=== PATIENT | female | born 1975 | race Caucasian/White ===

== ENCOUNTER → 2018-09-03 20:53 | Outpatient (CLI) | payer OTHER, MEDICAID, SELFPAY | PROVIDERS: Visit Provider Physician Assistant | DX: R39.9 Unspecified symptoms and signs involving the genitourinary system (principal) | CPT/HCPCS: 87077; 87086; 87147; 87186 ==

== ENCOUNTER → 2023-07-13 09:03 | Outpatient (CLI) | payer OTHER, MEDICAID, SELFPAY ==
[2023-07-14 12:09] LABS: Fecal Immunochemical Test Negative (Negative)
== END ==
PROVIDERS: PCP Student in an Organized Health Care Education/Training Program; Referring Provider Student in an Organized Health Care Education/Training Program; Visit Provider Student in an Organized Health Care Education/Training Program
DX: Z12.11 Encounter for screening for malignant neoplasm of colon (principal)
CPT/HCPCS: 82274

== ENCOUNTER → 2023-08-19 08:06 | Outpatient (CLI) | payer OTHER, MEDICAID, SELFPAY ==
[2023-08-19 09:03] LABS: Add Manual Diff / Slide Review NO; Basophils Absolute Auto 100 /uL (0-100); Basophils Percent Auto 0.7 % (0-2); Eosinophils Absolute Auto 200 /uL (0-450); Eosinophils Percent Auto 2.5 % (2-4); Hematocrit 43.4 % (36-46); Lymphocytes Absolute Auto 1600 /uL (1100-4500); Lymphocytes Percent Auto 20.2 % (25-40); Mean Corpuscular HGB Conc 34.6 % (30-36); Mean Corpuscular Hemoglobin 31.3 PG (26-34); Mean Corpuscular Volume 90.6 fL (80-100); Monocytes Absolute Auto 700 /uL (0-900); Monocytes Percent Auto 8.5 % (3-14); Neutrophils Absolute Auto 5400 /uL (1500-7000); Neutrophils Percent Auto 68.1 % (50-75); Platelet Count 215 X10^3/uL (150-400); Red Blood Cell Count 4.79 X10^6/uL (4.0-5.2); Red Cell Distribution Width 14.2 % (11.6-14.8)
[2023-08-19 09:11] LABS: Hemoglobin A1C% w Est Avg Glu 4.9 % (4.0-6.0)
[2023-08-19 09:24] LABS: Alanine Aminotransferase 209 IU/L (<35); Albumin 4.2 g/dL (3.5-5.0); Albumin Globulin Ratio 1.2 (1.0-2.8); Alkaline Phosphatase 88 U/L (38-126); Aspartate Aminotransferase 205 IU/L (14-36); Bilirubin Total 1.1 mg/dL (0.2-1.3); Blood Urea Nitrogen 9 mg/dL (7-17); Calcium 9.7 mg/dL (8.4-10.2); Carbon Dioxide 22 mmol/L (22-32); Chloride 103 mmol/L (98-107); Cholesterol 274 mg/dL (140-199); Estimated Glomerular Filt Rate > 60 mL/min (>60); Globulin 3.5 g/dL (1.7-4.1); Glucose 108 mg/dL (70-100); HDL Cholesterol 47 mg/dL (40-60); HEMOLYSIS 19 (0-50); LDL Cholesterol Calculated 190 mg/dL (<100); Potassium 4.5 mmol/L (3.4-5.1); Sodium 136 mmol/L (137-145); Total Protein 7.7 g/dL (6.3-8.2); Triglycerides 186 mg/dL (35-150)
[2023-08-19 09:53] LABS: TSH w/ Reflex to FT4 2.01 uIU/mL (0.47-4.68)
== END ==
PROVIDERS: PCP Student in an Organized Health Care Education/Training Program; Referring Provider Student in an Organized Health Care Education/Training Program; Visit Provider Student in an Organized Health Care Education/Training Program
DX: R63.5 Abnormal weight gain (principal)
CPT/HCPCS: 36415; 80053; 80061; 83036; 84443; 85025

== ENCOUNTER → 2023-10-19 06:36 | Outpatient (CLI) | payer OTHER, MEDICAID, SELFPAY ==
--- NOTE | 2023-10-19 06:37 | DI.US.S_ITS ---
PROCEDURE: US ABDOMEN LIMITED INDICATIONS: elevated LFT/Transaminitis TECHNIQUE: Real-time scanning was performed of the abdominal and retroperitoneal organs, with image documentation. COMPARISON: None. FINDINGS: Liver: The liver measures 17.6 cm in length and demonstrates increased echogenicity throughout. Gallbladder: No gallstones. No wall thickening. No pericholecystic edema. Negative sonographic Coombs's sign. Biliary ducts: Intrahepatic bile ducts are non-dilated. Extrahepatic bile duct caliber measures 4.2 mm. Normal is 6-7 mm or less in diameter, or 10 mm or less post-cholecystectomy. Pancreas: Visualized portions of the pancreas are sonographically normal. The tail of the pancreas is not well visualized due to bowel gas. IMPRESSION: Increased hepatic echogenicity noted likely related to fatty infiltration of the liver but other sources of hepatocellular disease cannot be excluded. Dictated by: Margoth Zavala M.D. on 10/19/2023 at 9:38 Approved by: Margoth Zavala M.D. on 10/19/2023 at 9:39
== END ==
LOC: US 06:36
PROVIDERS: PCP Student in an Organized Health Care Education/Training Program; Referring Provider Student in an Organized Health Care Education/Training Program; Visit Provider Student in an Organized Health Care Education/Training Program
DX: R74.01 Elevation of levels of liver transaminase levels (principal); R79.89 Other specified abnormal findings of blood chemistry
CPT/HCPCS: 76705

== ENCOUNTER → 2023-11-27 06:57 | Outpatient (CLI) | payer OTHER, MEDICAID, SELFPAY ==
[2023-11-27 07:45] LABS: HEMOLYSIS < 15 (0-50); Iron 73 ug/dL (37-170)
[2023-11-27 07:51] LABS: Alanine Aminotransferase 162 IU/L (<35); Albumin 4.2 g/dL (3.5-5.0); Albumin Globulin Ratio 1.1 (1.0-2.8); Alkaline Phosphatase 96 U/L (38-126); Aspartate Aminotransferase 194 IU/L (14-36); BUN Creatinine Ratio 11.9 (6-22); Bilirubin Total 1.1 mg/dL (0.2-1.3); Blood Urea Nitrogen 8 mg/dL (7-17); Calcium 9.4 mg/dL (8.4-10.2); Carbon Dioxide 25 mmol/L (22-32); Chloride 103 mmol/L (98-107); Estimated Glomerular Filt Rate > 60 mL/min (>60); Globulin 3.7 g/dL (1.7-4.1); Glucose 112 mg/dL (70-100); HEMOLYSIS < 15 (0-50); Potassium 4.2 mmol/L (3.4-5.1); Sodium 139 mmol/L (137-145); Total Protein 7.9 g/dL (6.3-8.2)
[2023-11-27 07:56] LABS: Percent Iron Saturation 17 % (15-50); Total Iron Binding Capacity 422 ug/dL (265-497); Transferrin 330 mg/dL (206-381)
[2023-11-27 08:22] LABS: Ferritin 64 ng/mL (6-137)
[2023-11-27 15:41] LABS: Hep C Virus Ab w/Reflex Quant NEGATIVE s/c (NEGATIVE)
[2023-11-28 00:45] LABS: HBsAg Screen Negative (Negative); Hepatitis A Antibody IgM Negative (Negative); Hepatitis B Core Antibody IgM Negative (Negative); Hepatitis C Antibody Non Reactive (Non Reactive)
[2023-11-28 06:20] LABS: Ceruloplasmin 28.9 mg/dL (19.0-39.0)
[2023-11-28 20:37] LABS: Deamidated Gliadin Ab IgA 9 units (0-19); Deamidated Gliadin Ab IgG 2 units (0-19); Immunoglobulin A,Qn 561 mg/dL (87-352); t-Transglutaminase IgA <2 U/mL (0-3)
[2023-11-29 15:50] LABS: Smooth Muscle Antibody 8 Units (0-19)
[2023-11-30 16:39] LABS: ANA Screen, IFA Negative (.)
[2023-12-08 15:12] LABS: Alpha 1 Antitrypsin 182 mg/dL (101-187); Alpha 1 antitrypsin pheno Rflx Not Indicated (.)
== END ==
PROVIDERS: PCP Student in an Organized Health Care Education/Training Program; Referring Provider Student in an Organized Health Care Education/Training Program; Visit Provider Student in an Organized Health Care Education/Training Program
DX: R79.89 Other specified abnormal findings of blood chemistry (principal)
CPT/HCPCS: 36415; 80053; 80074; 81332; 82103; 82390; 82728; 82784; 83516; 83540; 83550; 86038; 86803

== ENCOUNTER → 2024-06-20 10:52 | Outpatient (CLI) | payer OTHER, MEDICAID, SELFPAY ==
[2024-06-20 12:13] LABS: Add Manual Diff / Slide Review NO; Basophils Absolute Auto 0 /uL (0-100); Basophils Percent Auto 0.6 % (0-2); Eosinophils Absolute Auto 200 /uL (0-450); Eosinophils Percent Auto 1.8 % (2-4); Hematocrit 41.5 % (36-46); Lymphocytes Absolute Auto 1200 /uL (1100-4500); Mean Corpuscular HGB Conc 33.8 % (30-36); Mean Corpuscular Hemoglobin 30.3 PG (26-34); Mean Corpuscular Volume 89.8 fL (80-100); Monocytes Absolute Auto 600 /uL (0-900); Monocytes Percent Auto 6.5 % (3-14); Neutrophils Absolute Auto 6700 /uL (1500-7000); Neutrophils Percent Auto 77.1 % (50-75); Platelet Count 217 X10^3/uL (150-400); Red Blood Cell Count 4.62 X10^6/uL (4.0-5.2); Red Cell Distribution Width 15.4 % (11.6-14.8); White Blood Cell Count 8.7 X10^3/uL (4.5-11.0)
[2024-06-20 12:35] LABS: Alanine Aminotransferase 58 IU/L (<35); Albumin 3.9 g/dL (3.5-5.0); Albumin Globulin Ratio 1.3 (1.0-2.8); Alkaline Phosphatase 130 U/L (38-126); Aspartate Aminotransferase 76 IU/L (14-36); Bilirubin Total 1.2 mg/dL (0.2-1.3); Blood Urea Nitrogen 6 mg/dL (7-17); Calcium 9.1 mg/dL (8.4-10.2); Carbon Dioxide 23 mmol/L (22-32); Chloride 107 mmol/L (98-107); Estimated Glomerular Filt Rate > 60 mL/min (>60); Glucose 92 mg/dL (70-100); HEMOLYSIS < 15 (0-50); Potassium 4.6 mmol/L (3.4-5.1); Sodium 139 mmol/L (137-145); Total Protein 6.9 g/dL (6.3-8.2)
[2024-06-20 13:02] LABS: TSH w/ Reflex to FT4 1.16 uIU/mL (0.47-4.68)
== END ==
PROVIDERS: PCP Student in an Organized Health Care Education/Training Program; Referring Provider Student in an Organized Health Care Education/Training Program; Visit Provider Student in an Organized Health Care Education/Training Program
DX: R00.2 Palpitations (principal)
CPT/HCPCS: 36415; 80053; 84443; 85025

== ENCOUNTER → 2024-07-01 06:59 | Outpatient (CLI) | payer OTHER, MEDICAID, SELFPAY ==
--- NOTE | 2024-07-01 07:00 | DI.US.S_ITS ---
PROCEDURE: US ABDOMEN LIMITED INDICATIONS: eval of liver, persistent elevated liver enzymes TECHNIQUE: Real-time scanning was performed of the abdominal and retroperitoneal organs, with image documentation. Thirty-six images. COMPARISON: [facility], , US ABDOMEN LIMITED, 10/19/2023, 6:57. FINDINGS: Liver: Mild hepatomegaly liver measures approximately 18.2 cm in CC dimension of the right lobe previously measured approximately 17.6 cm. Moderate diffuse increased echogenicity of the liver similar to the prior exam commonly hepatic steatosis or other intrinsic hepatic disease. Gallbladder: Gallbladder is nondistended. No gallstones, no gallbladder wall thickening, no pericholecystic fluid. Biliary ducts: Intrahepatic bile ducts are non-dilated. Extrahepatic bile duct caliber measures 5 mm within normal limits. Normal is 6-7 mm or less in diameter. Pancreas: Visualized portions of the pancreas are sonographically normal. Spleen: Spleen is normal in size and homogeneous in echotexture. Miscellaneous: No free abdominal fluid. IMPRESSION: Mild hepatomegaly slightly increased. Moderate diffuse increased echogenicity of the liver similar to the prior exam commonly hepatic steatosis or other intrinsic hepatic disease. Follow-up suggested. Dictated by: Federico Martin M.D. on 07/01/2024 at 8:31 Approved by: Federico Martin M.D. on 07/01/2024 at 8:51
== END ==
LOC: US 07:00
PROVIDERS: PCP Student in an Organized Health Care Education/Training Program; Referring Provider Student in an Organized Health Care Education/Training Program; Visit Provider Student in an Organized Health Care Education/Training Program
DX: R11.0 Nausea (principal); R79.89 Other specified abnormal findings of blood chemistry; E66.9 Obesity, unspecified; R16.0 Hepatomegaly, not elsewhere classified
CPT/HCPCS: 76705

== ENCOUNTER → 2024-08-22 11:29 | Outpatient (CLI) | payer OTHER, MEDICAID, SELFPAY ==
[2024-08-22 12:09] LABS: Add Manual Diff / Slide Review NO; Basophils Absolute Auto 100 /uL (0-100); Basophils Percent Auto 0.6 % (0-2); Eosinophils Absolute Auto 200 /uL (0-450); Hematocrit 45.8 % (36-46); Hemoglobin 15.6 g/dL (12.0-16.0); Lymphocytes Absolute Auto 1100 /uL (1100-4500); Lymphocytes Percent Auto 10.8 % (25-40); Mean Corpuscular HGB Conc 34.1 % (30-36); Monocytes Absolute Auto 700 /uL (0-900); Monocytes Percent Auto 6.7 % (3-14); Neutrophils Absolute Auto 8100 /uL (1500-7000); Neutrophils Percent Auto 79.9 % (50-75); Platelet Count 236 X10^3/uL (150-400); Red Blood Cell Count 5.03 X10^6/uL (4.0-5.2); Red Cell Distribution Width 15.1 % (11.6-14.8); White Blood Cell Count 10.1 X10^3/uL (4.5-11.0)
[2024-08-22 12:45] LABS: Alanine Aminotransferase 64 IU/L (<35); Albumin 4.3 g/dL (3.5-5.0); Albumin Globulin Ratio 1.4 (1.0-2.8); Alkaline Phosphatase 115 U/L (38-126); Aspartate Aminotransferase 64 IU/L (14-36); BUN Creatinine Ratio 7.7 (6-22); Bilirubin Total 1.6 mg/dL (0.2-1.3); Blood Urea Nitrogen 6 mg/dL (7-17); Calcium 9.8 mg/dL (8.4-10.2); Carbon Dioxide 23 mmol/L (22-32); Chloride 105 mmol/L (98-107); Estimated Glomerular Filt Rate > 60 mL/min (>60); Globulin 3.1 g/dL (1.7-4.1); Glucose 92 mg/dL (70-100); HEMOLYSIS < 15 (0-50); Potassium 4.2 mmol/L (3.4-5.1); Sodium 138 mmol/L (137-145); Total Protein 7.4 g/dL (6.3-8.2)
== END ==
PROVIDERS: PCP Student in an Organized Health Care Education/Training Program; Referring Provider Student in an Organized Health Care Education/Training Program; Visit Provider Student in an Organized Health Care Education/Training Program
DX: R63.4 Abnormal weight loss (principal)
CPT/HCPCS: 36415; 80053; 85025

== ENCOUNTER → 2025-01-27 11:09 | Outpatient (CLI) | payer OTHER, SELFPAY ==
[2025-01-27 12:21] LABS: HEMOLYSIS < 15 (0-50); Iron 96 ug/dL (37-170)
[2025-01-27 12:24] LABS: Alanine Aminotransferase 24 IU/L (<35); Albumin 4.1 g/dL (3.5-5.0); Albumin Globulin Ratio 1.5 (1.0-2.8); Alkaline Phosphatase 75 U/L (38-126); Aspartate Aminotransferase 32 IU/L (14-36); BUN Creatinine Ratio 9.7 (6-22); Bilirubin Total 1.2 mg/dL (0.2-1.3); Blood Urea Nitrogen 7 mg/dL (7-17); Calcium 9.1 mg/dL (8.4-10.2); Carbon Dioxide 25 mmol/L (22-32); Chloride 108 mmol/L (98-107); Estimated Glomerular Filt Rate > 60 mL/min (>60); Globulin 2.7 g/dL (1.7-4.1); Glucose 97 mg/dL (70-100); HEMOLYSIS < 15 (0-50); Magnesium 1.9 mg/dL (1.6-2.3); Phosphorous 2.6 mg/dL (2.5-4.5); Potassium 4.5 mmol/L (3.4-5.1); Sodium 140 mmol/L (137-145); Total Protein 6.8 g/dL (6.3-8.2)
[2025-01-27 12:34] LABS: Percent Iron Saturation 36 % (15-50); Total Iron Binding Capacity 268 ug/dL (265-497); Transferrin 209 mg/dL (206-381)
[2025-01-27 12:42] LABS: Free T3, Triiodothyronine Free 3.24 pg/mL (2.77-5.27); Free T4, Direct Thyroxine 1.13 ng/dL (0.78-2.19)
[2025-01-27 12:55] LABS: Thyroid Stimulating Hormone 1.29 uIU/mL (0.47-4.68)
== END ==
LOC: LAB 11:11
PROVIDERS: PCP Student in an Organized Health Care Education/Training Program; Referring Provider Student in an Organized Health Care Education/Training Program; Visit Provider Student in an Organized Health Care Education/Training Program
DX: R63.4 Abnormal weight loss (principal); R60.9 Edema, unspecified; K21.9 Gastro-esophageal reflux disease without esophagitis; Z79.899 Other long term (current) drug therapy
CPT/HCPCS: 36415; 80053; 83540; 83550; 83735; 84100; 84439; 84443; 84481

== ENCOUNTER 2025-01-29 19:44 | Emergency (ER) | payer OTHER, SELFPAY ==
[2025-01-29 19:47] VITALS: BP 130/76; PULSE 127; RESP 22; TEMP 37; O2SAT 100; BMI 25.7
--- NOTE | 2025-01-29 20:02 | ED.ANXIETY ---
HPI - Anxiety <Radha Gonzalez, DO - Last Filed: 02/08/25 12:11> General Chief Complaint: Anxiety Stated Complaint: anxiety issues Time Seen by Provider: 01/29/25 19:51 Source: patient Mode of arrival: Ambulatory History of Present Illness HPI narrative: Patient is a 49-year-old female history of anxiety presenting today with anxiety. Reports that her anxiety can not calm down. She lost her partner 7 months ago from pancreatic cancer. She is grieving but not talking to a therapist. Reports that she was drinking alcohol taking Xanax exercising excessively. She feels like her anxiety can not calm down. She started taking Kratom, she took 1 g last couple days 500 today. She has been micro dosing with psychedelics mushrooms he has been increasing that dose as well. Today she had alcohol and 1 mg of Xanax and still feels very anxious. She also took an Ambien today. Reports that if she goes home she will continue taking things until the anxiety stops. She has had thoughts of cutting herself but not killing herself. Overall anxiety feels out of control. She occasionally has some heart palpitations. She sees her PCP regularly about every 2-4 weeks. Saw PCP in the had some electrolytes done which look normal and her thyroid was also normal. She has been on Wellbutrin, fluoxetine, Xanax, Ambien, mirtazapine Related Data Previous Rx's Medication Instructions Recorded omeprazole 20 mg capsule,delayed 20 mg PO DAILY Barretts esophagus 07/10/23 release #90 caps famotidine 20 mg tablet 20 mg PO BID #60 tabs 12/05/24 cyclobenzaprine 5 mg tablet 5 mg PO 3XD PRN for muscle spasm 12/11/24 #90 tabs naproxen 500 mg tablet 500 mg PO BID #60 tabs 12/11/24 ondansetron 4 mg disintegrating 4 mg PO Q8H PRN for 12/11/24 tablet nausea/vomiting #30 tabs alprazolam 0.5 mg tablet (Xanax) 0.5 mg PO DAILY PRN anxiety, panic 01/02/25 #7 tabs zolpidem 5 mg tablet (Ambien) 5 mg PO BEDTIME #30 tabs 01/30/25 Allergies Allergy/AdvReac Type Severity Reaction Status Date / Time sulfamethoxazole AdvReac Intermediate Itching Verified 02/06/25 09:34 [From Bactrim] and mild rash on arms and torso trimethoprim [From Bactrim] AdvReac Intermediate Itching Verified 02/06/25 09:34 and mild rash on arms and torso Patient History <Radha Gonzalez DO - Last Filed: 02/08/25 12:11> Medical History Chondroid syringoma GERD (gastroesophageal reflux disease) Menarche (~1988) 0 PTSD (post-traumatic stress disorder) Depression Anxiety Lumbar spine pain (2010) Chronic back pain (2010) Painful menstrual periods (2014) Ovarian cyst Irregular periods/menstrual cycles (2014) Abnormal Pap smear of cervix (1999) Lee's esophagus (2009) Surgical History Anesthesia History of right knee surgery History of cone biopsy of cervix Family History Mother Diabetes mellitus [place] (myocardial infarction) Emphysema lung Hypertension History of heart disease Hyperlipidemia Father Hypertension Hyperlipidemia History of heart disease Family/Other Breast cancer Smoking Status: Never smoker Exam <Radha Gonzalez DO - Last Filed: 02/08/25 12:11> Initial Vital Signs Initial Vital Signs: Vital Signs Temperature 98.6 F 01/29/25 19:47 Pulse Rate 127 H 01/29/25 19:47 Respiratory Rate 22 01/29/25 19:47 Blood Pressure 130/76 01/29/25 19:47 Pulse Oximetry 100 01/29/25 19:47 Oxygen Delivery Method Room Air 01/29/25 19:47 GENERAL: Patient very anxious poor eye contact, settling with a zipper HEENT: Head atraumatic,EOMI, pupils reactive, face symmetric, moist mucous membranes CARDIOVASCULAR: Regular rate and rhythm without murmurs, rubs or gallops. RESPIRATORY: Breath sounds equal bilaterally, no wheezes rales or rhonchi. ABDOMEN: Soft, nontender. Normoactive bowel sounds all 4 quadrants. No guarding or rebound. EXTREMITIES: Normal range of motion, no clubbing or edema. Neurovascularly intact NEUROLOGICAL: Alert and oriented x4.Normal gait and speech. SKIN: Warm, dry, no laceration, no petechiae, no rashes or lesions. <David Rai DO - Last Filed: 01/30/25 07:42> Initial Vital Signs Initial Vital Signs: Vital Signs Temperature 98.6 F 01/29/25 19:47 Pulse Rate 127 H 01/29/25 19:47 Respiratory Rate 22 01/29/25 19:47 Blood Pressure 130/76 01/29/25 19:47 Pulse Oximetry 100 01/29/25 19:47 Oxygen Delivery Method Room Air 01/29/25 19:47 Course <Radha Gonzalez DO - Last Filed: 02/08/25 12:11> Orders Ordered: Discontinued Medications Diphenhydramine HCl (Diphenhydramine 25 Mg Tablet) 50 mg PO NOW ONE Stop: 01/29/25 23:44 Last Admin: 01/29/25 23:55 Dose: 50 mg Documented By: MR Lorazepam (Lorazepam 0.5 Mg Tablet) 2 mg PO NOW ONE Stop: 01/29/25 20:22 Last Admin: 01/29/25 20:36 Dose: 2 mg Documented By: MR Lorazepam (Lorazepam 0.5 Mg Tablet) 2 mg PO NOW ONE Stop: 01/29/25 23:44 Last Admin: 01/29/25 23:56 Dose: 2 mg Documented By: MR Olanzapine (Olanzapine Odt 10 Mg Tab) 10 mg PO NOW ONE Stop: 01/29/25 22:32 Last Admin: 01/29/25 22:38 Dose: 10 mg Documented By: HNG Vital Signs Vital signs: Vital Signs - 8 hr 01/30/25 01:53 01/30/25 07:20 Pulse Rate 78 79 Respiratory Rate 16 16 Blood Pressure 127/71 167/66 H Pulse Oximetry 100 100 Oxygen Delivery Method Room Air Room Air <David Rai DO - Last Filed: 01/30/25 07:42> Orders Ordered: Discontinued Medications Diphenhydramine HCl (Diphenhydramine 25 Mg Tablet) 50 mg PO NOW ONE Stop: 01/29/25 23:44 Last Admin: 01/29/25 23:55 Dose: 50 mg Documented By: MR Lorazepam (Lorazepam 0.5 Mg Tablet) 2 mg PO NOW ONE Stop: 01/29/25 20:22 Last Admin: 01/29/25 20:36 Dose: 2 mg Documented By: MR Lorazepam (Lorazepam 0.5 Mg Tablet) 2 mg PO NOW ONE Stop: 01/29/25 23:44 Last Admin: 01/29/25 23:56 Dose: 2 mg Documented By: Olanzapine (Olanzapine Odt 10 Mg Tab) 10 mg PO NOW ONE Stop: 01/29/25 22:32 Last Admin: 01/29/25 22:38 Dose: 10 mg Documented By: HNG Vital Signs Vital signs: Vital Signs - 8 hr 01/30/25 01:53 01/30/25 07:20 Pulse Rate 78 79 Respiratory Rate 16 16 Blood Pressure 127/71 167/66 H Pulse Oximetry 100 100 Oxygen Delivery Method Room Air Room Air MDM - Anxiety <Radha Gonzalez, DO - Last Filed: 02/08/25 12:11> Lab Data 01/29/25 22:10 01/29/25 22:10 Labs: Lab Results 01/29/25 01/29/25 01/29/25 Range/Units 21:38 22:10 22:37 WBC 4.1 L (4.5-11.0) X10^3/uL RBC 4.25 (4.0-5.2) X10^6/uL Hgb 12.7 (12.0-16.0) g/dL Hct 37.7 (36-46) % MCV 88.7 (80-100) fL MCH 29.8 (26-34) PG MCHC 33.7 (30-36) % RDW 18.2 H (11.6-14.8) % Plt Count 157 (150-400) X10^3/uL Neut % (Auto) 60.7 (50-75) % Lymph % (Auto) 22.5 L (25-40) % Howell % (Auto) 9.4 (3-14) % Eos % (Auto) 6.2 H (2-4) % Baso % (Auto) 1.2 (0-2) % Neut # (Auto) 2500 (1000-7347) /uL Lymph # (Auto) 900 L (0805-6179) /uL Howell # (Auto) 400 (0-900) /uL Eos # (Auto) 300 (0-450) /uL Baso # (Auto) 0 (0-100) /uL Sodium 137 (137-145) mmol/L Potassium 3.3 L D (3.4-5.1) mmol/L Chloride 103 (98-107) mmol/L Carbon Dioxide 22 (22-32) mmol/L BUN 7 (7-17) mg/dL Creatinine 0.67 (0.52-1.04) mg/dL Estimated GFR > 60 (>60) mL/min BUN/Creatinine Ratio 10.4 (6-22) Glucose 72 (70-100) mg/dL Calcium 8.5 (8.4-10.2) mg/dL Total Bilirubin 1.1 (0.2-1.3) mg/dL AST 38 H (14-36) IU/L ALT 28 (<35) IU/L Alkaline Phosphatase 82 (38-126) U/L Total Protein 6.8 (6.3-8.2) g/dL Albumin 3.9 (3.5-5.0) g/dL Globulin 2.9 (1.7-4.1) g/dL Albumin/Globulin Ratio 1.3 (1.0-2.8) TSH 2.85 (0.47-4.68) uIU/mL Urine Test Negative (Negative) U Opiates 300ng/mL cut Negative (Negative) Ur Oxycodone Screen Negative (Negative) Urine Methadone Screen Negative (Negative) Ur Barbiturates Screen Negative (Negative) U Tricyclic Antidepress Negative (Negative) Ur Phencyclidine Scrn Negative (Negative) Ur Amphetamines Screen Negative (Negative) U Methamphetamines Scrn Negative (Negative) Ur MDMA Scrn (Ecstasy) Negative (Negative) U Benzodiazepines Scrn Negative (Negative) Urine Cocaine Screen Negative (Negative) U Marijuana (THC) Screen Negative (Negative) Urine pH Normal (Normal) Urine Specific [place] Normal (Normal) Ethyl Alcohol < 10 ( - 10) mg/dL Ur Creatinine Normal (Normal) SARS-CoV-2 (PCR) Negative (Negative) Urine Dip Bedside Urine Glucose Negative Bedside Urine Bilirubin - Negative Bedside Urine Ketone +/- 5 Urine Specific [place] 1.000 Bedside Urine Occult Blood - Negative Bedside Urine pH 6.0 Bedside Urine Protein - Negative Bedside Urine Urobilinogen - Negative Bedside Urine Nitrite - Negative Bedside Urine Leukocytes - Negative Esterase MDM Narrative Medical decision making narrative: Patient 49-year-old female history of anxiety depression experiencing grief and loss presenting today with severe anxiety. Trying multiple substances including cranium psychedelics mushrooms Xanax and Ambien along with alcohol all today. Stating that she will go home and take things until her anxiety stops. Denies wanting to and denies homicidal ideation 2019 Giving Ativan 2 mg p.o. After 2 hours of giving Ativan patient remains awake alert very fidgety on able to calm down but cooperative. At this time she agrees that inpatient treatment maybe a good option. She was voluntary. Patient is continuing to hit rubber fidget tolerate against her pain and. 2229 Given Zyprexa Blood work reviewed no Leukocytosis Electrolytes within normal limits Urinalysis negative, negative Toxicology negative alcohol negative 2349 patient unwilling to sign the voluntary form to get into [facility] Patient now is involuntary. Patient's left hand is completely black and blue for more he was hitting her hand with the rubbery fidget toy. Given Ativan and Benadryl to help with anxiety 99 now sleeping DCR evaluated patient. Not detainable. Patient very sleepy after the Ativan and Benadryl letting sleep with reassessment when she wakes up Signed out to Dr. Rai <David Rai, DO - Last Filed: 01/30/25 07:42> Lab Data Labs: Lab Results 01/29/25 01/29/25 01/29/25 Range/Units 21:38 22:10 22:37 WBC 4.1 L (4.5-11.0) X10^3/uL RBC 4.25 (4.0-5.2) X10^6/uL Hgb 12.7 (12.0-16.0) g/dL Hct 37.7 (36-46) % MCV 88.7 (80-100) fL MCH 29.8 (26-34) PG MCHC 33.7 (30-36) % RDW 18.2 H (11.6-14.8) % Plt Count 157 (150-400) X10^3/uL Neut % (Auto) 60.7 (50-75) % Lymph % (Auto) 22.5 L (25-40) % Howell % (Auto) 9.4 (3-14) % Eos % (Auto) 6.2 H (2-4) % Baso % (Auto) 1.2 (0-2) % Neut # (Auto) 2500 (1242-6422) /uL Lymph # (Auto) 900 L (1667-4044) /uL Howell # (Auto) 400 (0-900) /uL Eos # (Auto) 300 (0-450) /uL Baso # (Auto) 0 (0-100) /uL Sodium 137 (137-145) mmol/L Potassium 3.3 L D (3.4-5.1) mmol/L Chloride 103 (98-107) mmol/L Carbon Dioxide 22 (22-32) mmol/L BUN 7 (7-17) mg/dL Creatinine 0.67 (0.52-1.04) mg/dL Estimated GFR > 60 (>60) mL/min BUN/Creatinine Ratio 10.4 (6-22) Glucose 72 (70-100) mg/dL Calcium 8.5 (8.4-10.2) mg/dL Total Bilirubin 1.1 (0.2-1.3) mg/dL AST 38 H (14-36) IU/L ALT 28 (<35) IU/L Alkaline Phosphatase 82 (38-126) U/L Total Protein 6.8 (6.3-8.2) g/dL Albumin 3.9 (3.5-5.0) g/dL Globulin 2.9 (1.7-4.1) g/dL Albumin/Globulin Ratio 1.3 (1.0-2.8) TSH 2.85 (0.47-4.68) uIU/mL Urine Test Negative (Negative) U Opiates 300ng/mL cut Negative (Negative) Ur Oxycodone Screen Negative (Negative) Urine Methadone Screen Negative (Negative) Ur Barbiturates Screen Negative (Negative) U Tricyclic Antidepress Negative (Negative) Ur Phencyclidine Scrn Negative (Negative) Ur Amphetamines Screen Negative (Negative) U Methamphetamines Scrn Negative (Negative) Ur MDMA Scrn (Ecstasy) Negative (Negative) U Benzodiazepines Scrn Negative (Negative) Urine Cocaine Screen Negative (Negative) U Marijuana (THC) Screen Negative (Negative) Urine pH Normal (Normal) Urine Specific [place] Normal (Normal) Ethyl Alcohol < 10 ( - 10) mg/dL Ur Creatinine Normal (Normal) SARS-CoV-2 (PCR) Negative (Negative) Urine Dip Bedside Urine Glucose Negative Bedside Urine Bilirubin - Negative Bedside Urine Ketone +/- 5 Urine Specific [place] 1.000 Bedside Urine Occult Blood - Negative Bedside Urine pH 6.0 Bedside Urine Protein - Negative Bedside Urine Urobilinogen - Negative Bedside Urine Nitrite - Negative Bedside Urine Leukocytes - Negative Esterase MDM Narrative Medical decision making narrative: Patient 49-year-old female history of anxiety depression experiencing grief and loss presenting today with severe anxiety. Trying multiple substances including cranium psychedelics mushrooms Xanax and Ambien along with alcohol all today. Stating that she will go home and take things until her anxiety stops. Denies wanting to and denies homicidal ideation 2019 Giving Ativan 2 mg p.o. After 2 hours of giving Ativan patient remains awake alert very fidgety on able to calm down but cooperative. At this time she agrees that inpatient treatment maybe a good option. She was voluntary. Patient is continuing to hit rubber fidget tolerate against her pain and. 2229 Given Zyprexa Blood work reviewed no Leukocytosis Electrolytes within normal limits Urinalysis negative, negative Toxicology negative alcohol negative 2349 patient unwilling to sign the voluntary form to get into [facility] Patient now is involuntary. Patient's left hand is completely black and blue for more he was hitting her hand with the rubbery fidget toy. Given Ativan and Benadryl to help with anxiety 0100 now sleeping DCR evaluated patient. Not detainable. Patient very sleepy after the Ativan and Benadryl letting sleep with reassessment when she wakes up Signed out to Dr. Fredi Rai 0700: Patient was signed out to me by Dr. Kovacs, patient has been medically cleared, was not obtainable by DCR, final disposition pending re-evaluation given the fact that patient sleeping overnight. Patient has already received a total of 4 mg Ativan, 10 of Zyprexa, and 50 of Benadryl. 0741: Patient was re-evaluated by me, she is now awake alert, she is calm and cooperative at this time, she is A&O x4 answering all questions appropriately, I offered her via ability to stay and talk to our clinical social worker to determine if she wants to go voluntary to a inpatient unit, however she states that she would feel better/more comfortable going home, she is without any suicidal or homicidal ideations at this time, she states that she does feel comfortable going home, I informed her that if she feels any changes in her symptoms that she should come back to the emergency department immediately, she understands and agrees with this plan, patient will be discharged home with outpatient follow up Discharge Plan Departure Patient Disposition: Home Clinical Impression: Anxiety Instructions: Anxiety Disorders Activity Restrictions/Additional Instructions: *You have been diagnosed with anxiety *What to do: If you are feeling suicidal or having suicidal thoughts: Call: Suicide Hotline: 307 Visit: www.[employer] Text: 105 *Continue to take medications as directed *Follow up with your primary care provider in 2-3 days or call [phone] *Return to ER if you should have worsening anxiety depression [or] any new, worsening or concerning symptoms Prescriptions: No Action omeprazole 20 mg capsule,delayed release(DR/EC) 20 mg PO DAILY Qty: 90 3RF famotidine 20 mg tablet 20 mg PO BID Qty: 60 3RF alprazolam [Xanax] 0.5 mg tablet 0.5 mg PO DAILY PRN (Reason: anxiety, panic) Qty: 7 2RF naproxen 500 mg tablet 500 mg PO BID Qty: 60 2RF cyclobenzaprine 5 mg tablet 5 mg PO 3XD PRN (Reason: for muscle spasm) Qty: 90 1RF ondansetron 4 mg tablet,disintegrating 4 mg PO Q8H PRN (Reason: for nausea/vomiting) Qty: 30 3RF zolpidem [Ambien] 5 mg tablet 5 mg PO BEDTIME Qty: 30 3RF Rx Instructions: may repeat once if no response in 30-60 minutes Referrals: Milka Powers MD [Primary Care Provider] - Stand Alone Forms: Patient Portal/API/Survey
--- NOTE | 2025-01-29 20:02 | PC.NURSE ---
Patient fidgety, playing with zipper on jacket, states increased anxiety since she lost her partner but does not see a therapist.
[2025-01-29] MEDS: LORazepam 0.5 MG TABLET 2 MG PO ×2 (20:36→23:56)
--- NOTE | 2025-01-29 21:19 | PC.NURSE ---
Patient moved to a room within sight of the nurses station. 1:1 sitter. Patient continues to be anxious
[2025-01-29 21:54] LABS: Ur Creatinine Normal (Normal); Ur Specific Gravity Normal (Normal); Urine Amphetamines Negative (Negative); Urine Barbiturates Negative (Negative); Urine Benzodiazepines Negative (Negative); Urine Cocaine Negative (Negative); Urine MDMA Negative (Negative); Urine Methadone Negative (Negative); Urine Methamphetamines Negative (Negative); Urine Opiates Negative (Negative); Urine Oxycodone Negative (Negative); Urine Phencyclidine Negative (Negative); Urine THC Negative (Negative); Urine Tricyclic Antidepressant Negative (Negative); Urine pH Normal (Normal)
--- NOTE | 2025-01-29 22:27 | PC.NURSE ---
Addendum entered by Mady Richmond CNA 01/30/25 00:28: [employer] note: Patient was going to the edge of the bed holding her purse in her lap and her jacket on. I asked what was going on. Patient said I want to go. I told her unfortunately tonight you're involuntary and can't leave. Do you want to take off your jacket and get some rest? Patient said no. Offered to turn off her light. Patient didn't want that. Addendum entered by Mady Richmond CNA 01/30/25 00:13: [employer] note: Staff took away silicone fidget toy because she was hitting her hand so much. Called the [facility] at [phone], spoke with Chelsey. Original Note: DOMINGO note: Patient is playing with a silicone fidget toy. She is softly hitting it against her hand. She is sitting in bed with a mask.
[2025-01-29 22:28] LABS: Add Manual Diff / Slide Review NO; Basophils Absolute Auto 0 /uL (0-100); Basophils Percent Auto 1.2 % (0-2); Eosinophils Absolute Auto 300 /uL (0-450); Eosinophils Percent Auto 6.2 % (2-4); Hematocrit 37.7 % (36-46); Hemoglobin 12.7 g/dL (12.0-16.0); Lymphocytes Absolute Auto 900 /uL (1100-4500); Lymphocytes Percent Auto 22.5 % (25-40); Mean Corpuscular HGB Conc 33.7 % (30-36); Mean Corpuscular Hemoglobin 29.8 PG (26-34); Mean Corpuscular Volume 88.7 fL (80-100); Monocytes Absolute Auto 400 /uL (0-900); Monocytes Percent Auto 9.4 % (3-14); Neutrophils Absolute Auto 2500 /uL (1500-7000); Neutrophils Percent Auto 60.7 % (50-75); Platelet Count 157 X10^3/uL (150-400); Red Blood Cell Count 4.25 X10^6/uL (4.0-5.2); Red Cell Distribution Width 18.2 % (11.6-14.8); White Blood Cell Count 4.1 X10^3/uL (4.5-11.0)
[2025-01-29] MEDS: OLANZapine ODT 10 MG TAB PO (22:38)
[2025-01-29 22:39] LABS: Alanine Aminotransferase 28 IU/L (<35); Albumin 3.9 g/dL (3.5-5.0); Albumin Globulin Ratio 1.3 (1.0-2.8); Alkaline Phosphatase 82 U/L (38-126); Aspartate Aminotransferase 38 IU/L (14-36); BUN Creatinine Ratio 10.4 (6-22); Bilirubin Total 1.1 mg/dL (0.2-1.3); Blood Urea Nitrogen 7 mg/dL (7-17); Calcium 8.5 mg/dL (8.4-10.2); Carbon Dioxide 22 mmol/L (22-32); Chloride 103 mmol/L (98-107); Estimated Glomerular Filt Rate > 60 mL/min (>60); Ethanol (ETOH) < 10 mg/dL; Globulin 2.9 g/dL (1.7-4.1); Glucose 72 mg/dL (70-100); HEMOLYSIS < 15 (0-50); Potassium 3.3 mmol/L (3.4-5.1); Sodium 137 mmol/L (137-145); Total Protein 6.8 g/dL (6.3-8.2)
[2025-01-29 22:54] LABS: Pregnancy Test Urine Negative (Negative)
[2025-01-29 23:10] LABS: TSH w/ Reflex to FT4 2.85 uIU/mL (0.47-4.68)
[2025-01-29 23:16] LABS: COVID19 -Nasal RAPID Negative (Negative)
[2025-01-29] MEDS: diphenhydrAMINE 25 MG TABLET 50 MG PO (23:55)
--- NOTE | 2025-01-30 00:46 | PC.NURSE ---
Patient sleeping with RRR
[2025-01-30 01:53] VITALS: BP 127/71; PULSE 78; RESP 16; O2SAT 100
--- NOTE | 2025-01-30 07:19 | PC.NURSE ---
Pt with eyes closed and slow steady breathing.
[2025-01-30 07:20] VITALS: BP 167/66; PULSE 79; RESP 16; O2SAT 100
--- NOTE | 2025-01-30 07:47 | PC.NURSE ---
Assumed care of pt at 0700. States that they feel better and would like to go home. Given resources for suicide prevention and discussed at length the importance of counseling and having a solid support system.
== END 2025-01-30 07:48 | disposition home or self-care (01) ==
PROVIDERS: Emergency Medicine; Emergency Provider Student in an Organized Health Care Education/Training Program; PCP Student in an Organized Health Care Education/Training Program
DX: F41.9 Anxiety disorder, unspecified (principal)
CPT/HCPCS: 36415; 80053; 80305; 80320; 81003; 81025; 84443; 85025; 87635; 99284

== ENCOUNTER 2025-02-02 17:59 | Emergency (ER) | payer OTHER, SELFPAY ==
[2025-02-02] VITALS (8 sets, daily range): BP systolic 94–161; BP diastolic 61–90; PULSE 18–91; RESP 12–27; TEMP 36.4; O2SAT 97–99; BMI 25.0
--- NOTE | 2025-02-02 18:21 | EKG_ITS ---
[address] [address] Test Date: 2025-02-02 Pat Name: Shasta Daniels Department: Room: Gender: Female General Office Dispatcher: : [id number] Requested By: Order Number: [id number] Reading MD: Wolf Moser MD Measurements Intervals [place] Rate: 105 P: 74 CA: 146 QRS: 69 QRSD: 74 T: -1 QT: 334 QTc: 441 Interpretive Statements Sinus tachycardia Nonspecific T wave abnormality Electronically Signed On 02-03-2025 8:42:07 PDT by Wolf Moser MD
[2025-02-02 18:35] LABS: Ur Creatinine Normal (Normal); Ur Specific Gravity Normal (Normal); Urine Amphetamines Negative (Negative); Urine Barbiturates Negative (Negative); Urine Benzodiazepines Negative (Negative); Urine Cocaine Negative (Negative); Urine MDMA Negative (Negative); Urine Methadone Negative (Negative); Urine Opiates Negative (Negative); Urine Oxycodone Negative (Negative); Urine Phencyclidine Negative (Negative); Urine THC Negative (Negative); Urine Tricyclic Antidepressant Negative (Negative); Urine pH Normal (Normal)
[2025-02-02 18:42] LABS: Bacteria Urine Few (2-10); RBC Urine None Seen (0-5/HPF); Squamous Epithelial Cell Urine 1-5 /HPF (0-5/HPF); Urine Volume 10mL (spun); WBC Urine 0-1/HPF (0-5/HPF)
[2025-02-02 18:43] LABS: Culture Indicated Urine Cult Not Indicated
[2025-02-02 18:58] LABS: Acetaminophen < 10 ug/mL (10-30); Alanine Aminotransferase 27 IU/L (<35); Albumin 4.7 g/dL (3.5-5.0); Albumin Globulin Ratio 1.4 (1.0-2.8); Alkaline Phosphatase 83 U/L (38-126); Aspartate Aminotransferase 34 IU/L (14-36); BUN Creatinine Ratio 9.1 (6-22); Bilirubin Total 1.6 mg/dL (0.2-1.3); Blood Urea Nitrogen 7 mg/dL (7-17); Calcium 9.5 mg/dL (8.4-10.2); Carbon Dioxide 16 mmol/L (22-32); Chloride 100 mmol/L (98-107); Estimated Glomerular Filt Rate > 60 mL/min (>60); Ethanol (ETOH) 76 mg/dL; Globulin 3.4 g/dL (1.7-4.1); Glucose 65 mg/dL (70-100); HEMOLYSIS < 15 (0-50); Potassium 3.7 mmol/L (3.4-5.1); Salicylate < 1.0 mg/dL (<20); Sodium 138 mmol/L (137-145); Total Protein 8.1 g/dL (6.3-8.2)
[2025-02-02 19:00] LABS: Add Manual Diff / Slide Review NO; Basophils Absolute Auto 100 /uL (0-100); Eosinophils Absolute Auto 300 /uL (0-450); Eosinophils Percent Auto 4.2 % (2-4); Hematocrit 43.6 % (36-46); Hemoglobin 14.7 g/dL (12.0-16.0); Lymphocytes Absolute Auto 1800 /uL (1100-4500); Lymphocytes Percent Auto 26.6 % (25-40); Mean Corpuscular HGB Conc 33.7 % (30-36); Mean Corpuscular Volume 88.8 fL (80-100); Monocytes Absolute Auto 400 /uL (0-900); Monocytes Percent Auto 5.7 % (3-14); Neutrophils Absolute Auto 4200 /uL (1500-7000); Neutrophils Percent Auto 62.5 % (50-75); Platelet Count 193 X10^3/uL (150-400); Red Blood Cell Count 4.91 X10^6/uL (4.0-5.2); Red Cell Distribution Width 18.2 % (11.6-14.8); White Blood Cell Count 6.7 X10^3/uL (4.5-11.0)
--- NOTE | 2025-02-02 19:25 | CM.SWNOTE ---
ED AUTOMATIC MACHINES SUPERVISOR Assessment Note: AUTOMATIC MACHINES SUPERVISOR - Learning Services Coordinator Assessment AUTOMATIC MACHINES SUPERVISOR/Learning Services Coordinator Assessment Time Spent with Patient Start date 02/02/25 Visit Start Time 18:30 End date 02/02/25 Visit End Time 17:00 Total time Care Management spent on 30 minutes total patient visit-in minutes Mental Health Screening Include Onset, Duration, Intensity Presenting Problem Patient re-presented at the ED for acute anxiety and possible crisis behaviors. Patient presented to the ED on 01/29/25 for similar symptoms. It is reported that patient has been experiencing extreme levels of anxiety and she has been attempting to self- medicate with beer, Xanax, Ambien, Kratom and mushroom gummies. Patient explains that she has also been excessively exercising on her stationary bike; today she rode on her bike for about 3 hours. Precipitating Event(s) Patient experienced loss of her partner approximately 7 months ago; he from cancer. Patient is not currently seeing a Mental health provider. Patient Strengths Patient is seeking help, self aware and communicative. Patient has support from a friend/neighbor. Current Behavioral Health Provider(s) No MH provider established. Include Facility, Provider, Ph. # Psych. Hx Mental Health and Chemical Patient has a previous dx of Dependency anxiety, depression and grief. Patient reports taking kratom and mushroom gummies. Patient reports drinking 3 beers a day. Family Hx of Behavioral Abuse Recent loss of her partner to cancer. Psychiatric Hospitalizations (date(s)/ None reported. location) Psychosocial information & Support Patient is a 49yo female, Systems resident of [facility]. Patient has no local support, her family lives in [place] but she does not want them involved. School/Work Currently on disability for PTSD/Anxiety. Legal Concerns Legal Matters - Outstanding Issues None reported. Mental Status Orientation (Person/Place/Time) AOx3 Stated Mood Panicked, anxious Affect (Congruent with Mood?) anxious, flat, congruent with mood Thought Content - Specify/Describe None reported. Obsessions, Delusions, Hallucinations Thought Processes (Byvfpfb-Ltjjuxyh-Hegi Logical, goal directed Hktdiwij-Mywztjbw-Aoegorcgyd- Uhawwljzvahuwh-Srndaqc-Qfxmxvhwqpfd- Thought Blocking) Speech (Aqqfuz-Qhpo-Xrefhgz-Rapid-Soft- Normal Loud-Pressured) Motor (Wlkrrg-Qrtouyfxx-Txwf-Other) Normal Insight (Yffq-Hycw-Refr/Limited) Fair Judgement (Lfwr-Ryue-Grjn/Limited) Fair/limited Impulse Control (Adequate-Impaired) Impaired Memory (Ujtdkzmsq-Lsjtwd-Umgjka, Intact Impaired-Intact) Concentration (Intact-Impaired) Intact Attention (Intact-Impaired) Intact Behavior (Appropriate-Inappropriate) Appropriate Additional Comment Patient is calm, cooperative and communicative during assessment. Patient waxes and wanes between Risk Assessment Suicidal Ideation (Plan) Yes: Yes, no clear plan but understands she can overdose with self-medicating Homicidal Ideation (Plan) No Comment [place]-SUICIDE SEVERITY RATING SCALE 1) Have you wished you were or wished you could go to sleep and not wake up? YES 2) Have you actually had any thoughts of killing yourself? NO 3) Have you been thinking about how you might do this? NO 4) Have you had these thoughts and had some intention of acting on them? NO 5) Have you started to work out or worked out the details of how to kill yourself? Do you intend to carry out this plan? NO 6) Have you ever done anything , started to do anything, or prepared to do anything to end your life? NO If YES, ask: Was this within the past three months? NO Intervention Intervention Reviewed chart and discussed with ED Provider pt's medical status and discharge needs. ED AUTOMATIC MACHINES SUPERVISOR meets with patient. Patient endorses feeling extremely anxious and have been attempting to self- medicate with beer, xanax, ambien, kratom, mushrooms. Patient states she does not feel comfortable with being at home alone with her impulsivity and anxiety, denies SI/HI. ED AUTOMATIC MACHINES SUPERVISOR and patient discuss goals of care. Patient explains they are somewhat agreeable to crisis/medication stabilization but this waxes and wanes. Patient is anxious about involuntary placement. At this time, it is the opinion of this AUTOMATIC MACHINES SUPERVISOR that patient would benefit from inpatient psychiatric hospitalization for crisis and medication stabilization. It is unclear if patient is of sound mind to make this decision at this time due to being in crisis. AUTOMATIC MACHINES SUPERVISOR informs ED provider, Dr. Mandel, who indicates agreement. AUTOMATIC MACHINES SUPERVISOR informs LIYA Perez. Plan RA Plan Once patient is medically clear, ED staff will attempt to find inpatient placement for patient. Emely Polanco [facility]
[2025-02-02 19:40] LABS: Free T4, Direct Thyroxine 1.59 ng/dL (0.78-2.19)
--- NOTE | 2025-02-02 19:41 | ED.PSYCH ---
HPI - Psych General Chief Complaint: Psychiatric Symptoms Stated Complaint: Returning; Anxiety Time Seen by Provider: 02/02/25 19:33 Source: patient Mode of arrival: Ambulatory History of Present Illness HPI Narrative: 49-year-old female with a past medical history of anxiety, depression, PTSD, presenting for increased anxiety, suicidal ideation. Patient states that she has not safe at home, she states that she keeps ?taking stuff and is worried that she will overdose. She states that she takes cranium, drinks alcohol, mushrooms, Ambien, Xanax all to help with her increased anxiety, she states that she has also been working out for several hours without eating or drinking anything to get her mind off of things. She states that she has not trying to hurt herself but states that she has no idea how to ?cope. She was seen here previously for similar symptoms she states that nothing has changed since then, therefore is reaching out back for help. She does state that this all started when she lost her partner approximately 7 months ago to pancreatic cancer. Related Data Previous Rx's Medication Instructions Recorded omeprazole 20 mg capsule,delayed 20 mg PO DAILY Barretts esophagus 07/10/23 release #90 caps famotidine 20 mg tablet 20 mg PO BID #60 tabs 12/05/24 cyclobenzaprine 5 mg tablet 5 mg PO 3XD PRN for muscle spasm 12/11/24 #90 tabs naproxen 500 mg tablet 500 mg PO BID #60 tabs 12/11/24 ondansetron 4 mg disintegrating 4 mg PO Q8H PRN for 12/11/24 tablet nausea/vomiting #30 tabs alprazolam 0.5 mg tablet (Xanax) 0.5 mg PO DAILY PRN anxiety, panic 01/02/25 #7 tabs zolpidem 5 mg tablet (Ambien) 5 mg PO BEDTIME #30 tabs 01/30/25 Allergies Allergy/AdvReac Type Severity Reaction Status Date / Time sulfamethoxazole AdvReac Intermediate Itching Verified 01/02/25 09:01 [From Bactrim] and mild rash on arms and torso trimethoprim [From Bactrim] AdvReac Intermediate Itching Verified 01/02/25 09:01 and mild rash on arms and torso Review of Systems Review of Systems Narrative: General: Denies fever, chills, weight loss HEENT: Denies headache, eye drainage, eye irritation, head trauma, sore throat, voice change Cardiovascular: Denies any chest pain, palpitations, tachycardia Respiratory: Denies any shortness of breath, cough, wheeze, stridor GI/: Denies any abdominal pain, nausea, vomiting, diarrhea, bright red blood per rectum, melanotic stools, urinary frequency, urinary retention, dysuria, hematuria MSK: Denies any joint pain, muscle pains, swelling Skin: Denies any rashes, lesions, discoloration Neuro: Denies any headache, lightheadedness, dizziness, fainting, weakness Psych: Increased anxiety, Denies SI/HI Patient History Medical History Chondroid syringoma GERD (gastroesophageal reflux disease) Menarche (~1988) 0 PTSD (post-traumatic stress disorder) Depression Anxiety Lumbar spine pain (2010) Chronic back pain (2010) Painful menstrual periods (2014) Ovarian cyst Irregular periods/menstrual cycles (2014) Abnormal Pap smear of cervix (1999) Lee's esophagus (2009) Surgical History Anesthesia History of right knee surgery History of cone biopsy of cervix Family History Mother Diabetes mellitus VA (myocardial infarction) Emphysema lung Hypertension History of heart disease Hyperlipidemia Father Hypertension Hyperlipidemia History of heart disease Family/Other Breast cancer Social History Smoking Status: Never smoker Smoking Status: Never smoker Alcohol type: beer Exam Narrative Exam Narrative: General: Cooperative, well-developed, not in acute distress HEENT: Normocephalic, atraumatic, PERRLA, normal sclera, eyelids normal Neck: Active full range of motion, atraumatic Chest: Normal to inspection, negative crepitus, no overlying erythema ecchymosis Respiratory: Normal respiratory effort, not in acute respiratory distress, clear to auscultation bilaterally negative cough, wheeze, tachypnea, rhonchi, rales Cardiology: Regular rate rhythm negative gallop, murmur, rubs GI/: No tenderness to palpation, soft, non rigid, normal to inspection, exam deferred MSK: Full active range of motion in all 4 extremities, atraumatic, no tenderness to palpation of any bony prominences Skin: No rashes or lesions noted Neuro: Alert awake oriented x3, moves all 4 extremities spontaneously, cranial nerves intact, able to answer all questions appropriately follows commands appropriately Psych: Cooperative, negative suicidal or homicidal ideations Initial Vital Signs Initial Vital Signs: Vital Signs Temperature 97.5 F L 02/02/25 18:03 Pulse Rate 18 L 02/02/25 18:03 Respiratory Rate 18 02/02/25 18:03 Blood Pressure 161/90 H 02/02/25 18:03 Pulse Oximetry 98 02/02/25 18:03 Oxygen Delivery Method Room Air 02/02/25 18:03 Course Orders Ordered: ED Orders 02/02/25 21:03 COVID19 -Nasal RAPID Stat Acetaminophen (Acetaminophen 325 Mg Tablet) 650 mg PO Q4H PRN PRN Reason: Fever/Mild Pain (1-3) Last Admin: 02/02/25 20:39 Dose: 650 mg Documented By: AL Discontinued Medications Ketorolac Tromethamine (Ketorolac 30 Mg/Ml Vial) 30 mg IV NOW ONE Stop: 02/03/25 02:30 Last Admin: 02/03/25 02:36 Dose: 30 mg Documented By: JOS Lorazepam (Lorazepam 2 Mg/Ml Inj) 1 mg IV NOW ONE Stop: 02/02/25 22:58 Last Admin: 02/02/25 23:07 Dose: 1 mg Documented By: JOSE ALEJANDRO Ondansetron HCl (Ondansetron 4 Mg/2 Ml Inj) 4 mg IV NOW ONE Stop: 02/03/25 02:30 Last Admin: 02/03/25 02:38 Dose: 4 mg Documented By: JOS Vital Signs Vital signs: Vital Signs - 8 hr 02/02/25 22:00 02/02/25 22:01 02/02/25 22:01 Pulse Rate 83 84 Respiratory Rate 27 H 24 Blood Pressure 101/63 Pulse Oximetry 98 99 02/02/25 22:30 02/02/25 22:30 02/02/25 23:00 Pulse Rate 90 Respiratory Rate 22 Blood Pressure 109/75 113/68 Pulse Oximetry 98 02/02/25 23:00 Pulse Rate 79 Respiratory Rate 12 Blood Pressure Pulse Oximetry 98 MDM - Psych Differential Diagnosis Differential diagnosis: Likely acute psychosis, suicidal ideation, depression, acute anxiety and other (Electrolyte abnormality) Lab Data 02/02/25 18:38 02/02/25 18:38 Labs: Lab Results 02/02/25 02/02/25 02/02/25 Range/Units 18:20 18:38 21:03 WBC 6.7 (4.5-11.0) X10^3/uL RBC 4.91 (4.0-5.2) X10^6/uL Hgb 14.7 (12.0-16.0) g/dL Hct 43.6 (36-46) % MCV 88.8 (80-100) fL MCH 30.0 (26-34) PG MCHC 33.7 (30-36) % RDW 18.2 H (11.6-14.8) % Plt Count 193 (150-400) X10^3/uL Neut % (Auto) 62.5 (50-75) % Lymph % (Auto) 26.6 (25-40) % Brooks % (Auto) 5.7 (3-14) % Eos % (Auto) 4.2 H (2-4) % Baso % (Auto) 1.0 (0-2) % Neut # (Auto) 4200 (7168-1530) /uL Lymph # (Auto) 1800 (0080-7446) /uL Brooks # (Auto) 400 (0-900) /uL Eos # (Auto) 300 (0-450) /uL Baso # (Auto) 100 (0-100) /uL Sodium 138 (137-145) mmol/L Potassium 3.7 (3.4-5.1) mmol/L Chloride 100 (98-107) mmol/L Carbon Dioxide 16 L (22-32) mmol/L BUN 7 (7-17) mg/dL Creatinine 0.77 (0.52-1.04) mg/dL Estimated GFR > 60 (>60) mL/min BUN/Creatinine Ratio 9.1 (6-22) Glucose 65 L (70-100) mg/dL Calcium 9.5 (8.4-10.2) mg/dL Total Bilirubin 1.6 H (0.2-1.3) mg/dL AST 34 (14-36) IU/L ALT 27 (<35) IU/L Alkaline Phosphatase 83 (38-126) U/L Total Protein 8.1 (6.3-8.2) g/dL Albumin 4.7 (3.5-5.0) g/dL Globulin 3.4 (1.7-4.1) g/dL Albumin/Globulin Ratio 1.4 (1.0-2.8) TSH 1.17 (0.47-4.68) uIU/mL Free T4 1.59 (0.78-2.19) ng/dL Urine RBC None seen (0-5/HPF) Urine WBC 0-1/hpf (0-5/HPF) Ur Squamous Epith Cells 1-5 /hpf (0-5/HPF) Urine Bacteria Few (2-10) H (None) Ur Culture Indicated? Cult not indicated Vol Urine Centrifuged 10ml (spun) Salicylates < 1.0 (<20) mg/dL U Opiates 300ng/mL cut Negative (Negative) Ur Oxycodone Screen Negative (Negative) Urine Methadone Screen Negative (Negative) Acetaminophen < 10 (10-30) ug/mL Ur Barbiturates Screen Negative (Negative) U Tricyclic Antidepress Negative (Negative) Ur Phencyclidine Scrn Negative (Negative) Ur Amphetamines Screen Negative (Negative) U Methamphetamines Scrn Negative (Negative) Ur MDMA Scrn (Ecstasy) Negative (Negative) U Benzodiazepines Scrn Negative (Negative) Urine Cocaine Screen Negative (Negative) U Marijuana (THC) Screen Negative (Negative) Urine pH Normal (Normal) Urine Specific [place] Normal (Normal) Ethyl Alcohol 76 H ( - 10) mg/dL Ur Creatinine Normal (Normal) SARS-CoV-2 (PCR) Negative (Negative) Point of Care Testing Test Results Negative Urine Dip Bedside Urine Glucose Negative Bedside Urine Bilirubin - Negative Bedside Urine Ketone ++ 40 Urine Specific [place] 1.010 Bedside Urine Occult Blood - Negative Bedside Urine pH 5.5 Bedside Urine Protein - Negative Bedside Urine Urobilinogen +/- 1mg Bedside Urine Nitrite - Negative Bedside Urine Leukocytes - Negative Esterase ECG Data Interpretation: EKG interpreted ED physician sinus tachycardia 105 beats per minute QTC 441, normal axis nonspecific ST changes no STEMI MDM Narrative Medical decision making narrative: 49-year-old female with a history of anxiety depression presenting for increased anxiety, issues with coping with the loss of her partner to pancreatic cancer proximally 7 months ago. She states that she does not want to actually kill or hurt herself but she is unable to ?cope with all the stress and anxiety that she has been feeling after losing her significant other. She states that in order to do this she has been trying things to get her ?mind off of things. She states that she has been taking kratom, mushroom gummies, alcohol, well as diuretics and excessive working out without eating or drinking. She states that she is worried that she will eventually continued down this pathway in end up actually killing herself. She states that over the past few days she has been working out non. On her bike, therefore she came in to request help. She was seen here previously a few days ago for same, DCR was dispatched at that time but was unable to obtain. She was discharged with outpatient follow up per patient's request. However given patient with increasing symptoms of possible suicidal tendencies DCR well again be dispatched she is now involuntary. She is medically cleared at this time 2250: Patient was evaluated by DCR, states that she does not meet requirement for involuntary at this time, states that he is setting her up for crisis follow up in the morning. She states that she has an appointment with her primary care doctor on 02/10/2025, upon re-evaluation patient is stating that she is agreeable to being discharged home, however she states that she is still feeling very anxious, she states that if she does not have anything for this she is scared that when she goes home she will take the other drug/medications again, therefore will provide some medication here and discharge patient in the morning. 4.21.25 @ 0544: Patient was re-evaluated, no new complaints at this time, states that she feels better after administration of medication here in the emergency department. She still is without any suicidal or homicidal ideations. She understands that crisis will be reaching out to her sometime this morning to follow up with her. She was given strict return precautions she verbalized understanding of this and agrees to being discharged home with outpatient follow up Discharge Plan Departure Patient Disposition: Home Clinical Impression: Anxiety, Depression, Stress reaction Activity Restrictions/Additional Instructions: Please follow up with your primary care doctor for your scheduled appointment Please read the discharge instructions sheet carefully and bring all papers to all doctor follow-up visits, as it may contain information that your doctor may want to see. Disease processes change and evolve, if your symptoms worsen or if you develop any new symptoms that are concerning to you please return for evaluation. Your evaluation today does not show any evidence of any life-threatening/serious illnesses requiring admission to the hospital or surgery. Please follow-up with your doctor for re-evaluation in approximately 1 day. Seek immediate medical attention for any worrisome symptoms. *If you do not have a primary care provider please contact the [facility] Resource line at [phone]. They will ask some questions about your medical history and help get you set up with a doctor in the community. Prescriptions: No Action omeprazole 20 mg capsule,delayed release(DR/EC) 20 mg PO DAILY Qty: 90 3RF famotidine 20 mg tablet 20 mg PO BID Qty: 60 3RF alprazolam [Xanax] 0.5 mg tablet 0.5 mg PO DAILY PRN (Reason: anxiety, panic) Qty: 7 2RF naproxen 500 mg tablet 500 mg PO BID Qty: 60 2RF cyclobenzaprine 5 mg tablet 5 mg PO 3XD PRN (Reason: for muscle spasm) Qty: 90 1RF ondansetron 4 mg tablet,disintegrating 4 mg PO Q8H PRN (Reason: for nausea/vomiting) Qty: 30 3RF zolpidem [Ambien] 5 mg tablet 5 mg PO BEDTIME Qty: 30 3RF Rx Instructions: may repeat once if no response in 30-60 minutes Referrals: Milka Powers MD [Primary Care Provider] - Stand Alone Forms: Patient Portal/API/Survey
--- NOTE | 2025-02-02 19:49 | CM.SWNOTE ---
ED FUR MIXER OPERATOR Note: Pt identified to be in crisis, ED FUR MIXER OPERATOR consulted with pt RN and ED Provider who identifies pt as a re-presentation, DCR was dispatched on 01/29/25 and was determined as not detainable; was discharged home. ED Provider and FUR MIXER OPERATOR agree that pt is not cleared to leave voluntarily due to crisis presentation; requests DCR dispatch again. VOA attestation completed and faxed to A Crisis Line. ED FUR MIXER OPERATOR spoke with [facility] Care Crisis Line and requested D[facility] dispatch, pending ETA. ED FUR MIXER OPERATOR faxed all available clinicals to [facility] fax (fax#[phone]). Plan: Pending DCR assessment for [facility] placement, ED staff following for coordination of disposition. BALA Frazier
[2025-02-02 19:54] LABS: Thyroid Stimulating Hormone 1.17 uIU/mL (0.47-4.68)
--- NOTE | 2025-02-02 20:25 | PC.NURSE ---
Pt awaiting DCR eval. Belongings secured in locked cabinet. Patient calm and sitting in bed.
[2025-02-02] MEDS: ACETAMINOPHEN 325 MG TABLET 650 MG PO (20:39)
[2025-02-02 21:45] LABS: COVID19 -Nasal RAPID Negative (Negative)
[2025-02-02] MEDS: LORazepam 2 MG/ML INJ 1 MG IV (23:07)
[2025-02-03] MEDS: KETOROLAC 30 MG/ML VIAL IV (02:36)
[2025-02-03] MEDS: ONDANSETRON 4 MG/2 ML INJ IV (02:38)
[2025-02-03 05:53] VITALS: BP 103/66; PULSE 68; RESP 18; O2SAT 18
--- NOTE | 2025-02-03 13:20 | CM.SWNOTE ---
ED WATER RESOURCE SPECIALIST Follow Up Note: Reviewed EMR and discussed pt with DCR Tio Moran with a follow up call. It is reported that after his assessment, pt still did not meet detainment criteria (this is second DCR dispatch in a week). Patient agreed to follow up with [facility] Crisis Outreach Team follow up on 02/03. ED WATER RESOURCE SPECIALIST notified Triage Nurse with Dr. Ledesma of pt status and to please note it for patient's PCP appointment on 02/10. Plan: Pt to follow up with [facility] Crisis Outreach Team on 02/03 as well as her PCP on 02/10. BALA Frazier
== END 2025-02-03 06:01 | disposition home or self-care (01) ==
PROVIDERS: Emergency Provider Student in an Organized Health Care Education/Training Program; PCP Student in an Organized Health Care Education/Training Program
DX: F32.A Depression, unspecified (principal); F41.9 Anxiety disorder, unspecified; F43.9 Reaction to severe stress, unspecified
CPT/HCPCS: 80053; 80305; 80320; 80329; 81003; 81015; 81025; 84439; 84443; 85025; 87635; 93005; 93010; 96374; 96375; 99284; G0480; J1885; J2060; J2405

== ENCOUNTER → 2025-02-05 07:01 | Outpatient (CLI) | payer OTHER, SELFPAY ==
--- NOTE | 2025-02-05 07:01 | DI.US.S_ITS ---
PROCEDURE: US THYROID INDICATIONS: lump in neck TECHNIQUE: Real-time scanning was performed of the thyroid gland, with image documentation. COMPARISON: None. FINDINGS: Thyroid: Right lobe measures 6.4 x 3.2 x 2.7 cm. Left lobe measures 5.9 x 1.6 x 1.4 cm. Isthmus is 0.3 cm thick. Echotexture is mildly heterogeneous without focal measurable nodules. IMPRESSION: Unremarkable sonographic appearance of the thyroid gland without focal suspicious thyroid nodules identified. Dictated by: Agustín Ramires M.D. on 02/05/2025 at 14:03 Approved by: Agustín Ramires M.D. on 02/05/2025 at 14:04
== END ==
PROVIDERS: PCP Student in an Organized Health Care Education/Training Program; Referring Provider Student in an Organized Health Care Education/Training Program; Visit Provider Student in an Organized Health Care Education/Training Program
DX: R22.1 Localized swelling, mass and lump, neck (principal)
CPT/HCPCS: 76536

== ENCOUNTER 2025-02-06 09:28 | Emergency (ER) | payer OTHER, SELFPAY ==
[2025-02-06] VITALS (16 sets, daily range): BP systolic 94–128; BP diastolic 56–86; PULSE 63–107; RESP 13–23; TEMP 36.7; O2SAT 98–100; BMI 24.0
--- NOTE | 2025-02-06 10:41 | ED.ARRPALP ---
HPI - Arrhythmia/Palpitations General Chief Complaint: Arrhythmia/Palpitations Stated Complaint: Fast heart rate Time Seen by Provider: 02/06/25 09:57 Source: patient Mode of arrival: Ambulatory History of Present Illness HPI narrative: Patient is sent here from primary care office upstairs for concern of dehydration anxiety depression, cachexia, would want patient to have DCR evaluation. Patient seen here 4 days ago for anxiety. Patient was seen by DCR and deemed not detainable. She had crisis phone call to her the following day as planned. She denies denies any SI or HI. No auditory visual hallucinations. She admits she has not been eating and drinking very much recently. She has had significant loss in her relationship recently. She admits drinking alcohol occasionally and coffee drinks. She does not do any illegal drugs but she does do other substances. EKG interpreted ED physician sinus tachycardia 105 beats per minute QTC 441, normal axis nonspecific ST changes no STEMI MDM Narrative Medical decision making narrative: 49-year-old female with a history of anxiety depression presenting for increased anxiety, issues with coping with the loss of her partner to pancreatic cancer proximally 7 months ago. She states that she does not want to actually kill or hurt herself but she is unable to ?cope with all the stress and anxiety that she has been feeling after losing her significant other. She states that in order to do this she has been trying things to get her ?mind off of things. She states that she has been taking kratom, mushroom gummies, alcohol, well as diuretics and excessive working out without eating or drinking. She states that she is worried that she will eventually continued down this pathway in end up actually killing herself. She states that over the past few days she has been working out non. On her bike, therefore she came in to request help. She was seen here previously a few days ago for same, DCR was dispatched at that time but was unable to obtain. She was discharged with outpatient follow up per patient's request. However given patient with increasing symptoms of possible suicidal tendencies DCR well again be dispatched she is now involuntary. She is medically cleared at this time 2250: Patient was evaluated by DCR, states that she does not meet requirement for involuntary at this time, states that he is setting her up for crisis follow up in the morning. She states that she has an appointment with her primary care doctor on 02/10/2025, upon re-evaluation patient is stating that she is agreeable to being discharged home, however she states that she is still feeling very anxious, she states that if she does not have anything for this she is scared that when she goes home she will take the other drug/medications again, therefore will provide some medication here and discharge patient in the morning. 02.03.25 @ 0544: Patient was re-evaluated, no new complaints at this time, states that she feels better after administration of medication here in the emergency department. She still is without any suicidal or homicidal ideations. She understands that crisis will be reaching out to her sometime this morning to follow up with her. She was given strict return precautions she verbalized understanding of this and agrees to being discharged home with outpatient follow up Related Data Previous Rx's Medication Instructions Recorded omeprazole 20 mg capsule,delayed 20 mg PO DAILY Barretts esophagus 07/10/23 release #90 caps famotidine 20 mg tablet 20 mg PO BID #60 tabs 12/05/24 cyclobenzaprine 5 mg tablet 5 mg PO 3XD PRN for muscle spasm 12/11/24 #90 tabs naproxen 500 mg tablet 500 mg PO BID #60 tabs 12/11/24 ondansetron 4 mg disintegrating 4 mg PO Q8H PRN for 12/11/24 tablet nausea/vomiting #30 tabs alprazolam 0.5 mg tablet (Xanax) 0.5 mg PO DAILY PRN anxiety, panic 01/02/25 #7 tabs zolpidem 5 mg tablet (Ambien) 5 mg PO BEDTIME #30 tabs 01/30/25 Allergies Allergy/AdvReac Type Severity Reaction Status Date / Time sulfamethoxazole AdvReac Intermediate Itching Verified 02/06/25 09:34 [From Bactrim] and mild rash on arms and torso trimethoprim [From Bactrim] AdvReac Intermediate Itching Verified 02/06/25 09:34 and mild rash on arms and torso Review of Systems Review of Systems Narrative: GENERAL: Negative chills, fatigue, malaise, fever, sweats. HEENT: Negative sinus pain, ear pain, sore throat RESPIRATORY: Negative dyspnea, cough CARDIOVASCULAR: Negative chest pain, palpitations GASTROINTESTINAL: Negative vomiting, nausea, abdominal pain : Negative dysuria, frequency, hematuria MUSCULOSKELETAL: Negative muscle or bony pain SKIN: Negative rash, skin lesions NEUROLOGIC: Negative weakness, numbness PSYCH: Positive anxiety ROS Unobtainable: All systems reviewed & are unremarkable except as noted in HPI and below Patient History Medical History Chondroid syringoma GERD (gastroesophageal reflux disease) Menarche (~1988) 0 PTSD (post-traumatic stress disorder) Depression Anxiety Lumbar spine pain (2010) Chronic back pain (2010) Painful menstrual periods (2014) Ovarian cyst Irregular periods/menstrual cycles (2014) Abnormal Pap smear of cervix (1999) Lee's esophagus (2009) Surgical History Anesthesia History of right knee surgery History of cone biopsy of cervix Family History Mother Diabetes mellitus NH (myocardial infarction) Emphysema lung Hypertension History of heart disease Hyperlipidemia Father Hypertension Hyperlipidemia History of heart disease Family/Other Breast cancer Smoking Status: Unknown if ever smoked Alcohol type: beer Exam Narrative Exam Narrative: GENERAL: in no distress, not toxic not dyspneic HEAD: Normocephalic. EYES: Pupils equal round ENT: Mucous membranes moist. NECK: Trachea midline. CARDIOVASCULAR: Regular rate and rhythm RESPIRATORY: Clear to auscultation. Breath sounds equal bilaterally. No wheezes, rales, or rhonchi. GASTROINTESTINAL: Abdomen soft, non-tender EXTREMITIES: No gross deformities. BACK: No flank tenderness. NEURO: AOx4. Clear speech SKIN: Warm and dry PSYCH: Is slightly anxious, is cooperative, not agitated not combative Initial Vital Signs Initial Vital Signs: Vital Signs Temperature 98.1 F 02/06/25 09:30 Pulse Rate 107 H 02/06/25 09:30 Respiratory Rate 16 02/06/25 09:30 Blood Pressure 128/83 02/06/25 09:30 Pulse Oximetry 99 02/06/25 09:30 Oxygen Delivery Method Room Air 02/06/25 09:30 Course Orders Ordered: Discontinued Medications Acetaminophen (Acetaminophen 325 Mg Tablet) 975 mg PO NOW ONE Stop: 02/06/25 11:43 Last Admin: 02/06/25 11:47 Dose: 975 mg Documented By: GIOVANNI Sodium Chloride (Normal Saline 0.9%) 1,000 mls @ 1,000 mls/hr IV BOLUS ONE Stop: 02/06/25 12:41 Last Infusion: 02/06/25 13:31 Dose: Infused Documented By: Admin: 02/06/25 11:47 Dose: 1,000 mls/hr Documented By: GIOVANNI Ondansetron HCl (Ondansetron 4 Mg/2 Ml Inj) 4 mg IV NOW ONE Stop: 02/06/25 11:43 Last Admin: 02/06/25 11:47 Dose: 4 mg Documented By: GIOVANNI Vital Signs Vital signs: Vital Signs - 8 hr 02/06/25 09:30 02/06/25 09:51 02/06/25 10:00 Temperature 98.1 F Pulse Rate 107 H 73 71 Respiratory Rate 16 15 15 Blood Pressure 128/83 Pulse Oximetry 99 98 98 Oxygen Delivery Method Room Air 02/06/25 10:12 02/06/25 10:12 02/06/25 10:30 Temperature Pulse Rate 92 H Respiratory Rate Blood Pressure 111/74 117/74 Pulse Oximetry 99 Oxygen Delivery Method 02/06/25 10:30 02/06/25 10:56 02/06/25 10:56 Temperature Pulse Rate 80 67 Respiratory Rate 16 14 Blood Pressure 109/61 Pulse Oximetry 99 99 Oxygen Delivery Method 02/06/25 11:00 02/06/25 11:01 02/06/25 11:01 Temperature Pulse Rate 67 69 Respiratory Rate 16 20 Blood Pressure 94/56 L Pulse Oximetry 100 99 Oxygen Delivery Method 02/06/25 11:30 02/06/25 11:30 02/06/25 12:00 Temperature Pulse Rate 66 74 Respiratory Rate 16 23 Blood Pressure 94/58 L Pulse Oximetry 99 99 Oxygen Delivery Method 02/06/25 12:30 02/06/25 12:30 02/06/25 13:00 Temperature Pulse Rate 66 70 Respiratory Rate 15 13 Blood Pressure 104/69 Pulse Oximetry 100 100 Oxygen Delivery Method 02/06/25 13:00 02/06/25 13:30 02/06/25 13:30 Temperature Pulse Rate 85 Respiratory Rate Blood Pressure 112/70 113/86 Pulse Oximetry 100 Oxygen Delivery Method 02/06/25 14:00 02/06/25 14:00 02/06/25 14:30 Temperature Pulse Rate 63 Respiratory Rate 16 Blood Pressure 102/62 114/69 Pulse Oximetry 100 Oxygen Delivery Method 02/06/25 14:30 02/06/25 14:31 02/06/25 14:31 Temperature Pulse Rate 63 72 Respiratory Rate 15 15 Blood Pressure 114/69 Pulse Oximetry 100 100 Oxygen Delivery Method MDM - Arrhythmia/Palpitations Lab Data 02/06/25 10:58 02/06/25 10:58 Labs: Lab Results 02/06/25 02/06/25 02/06/25 Range/Units 10:49 10:49 10:58 WBC 9.0 (4.5-11.0) X10^3/uL RBC 5.01 (4.0-5.2) X10^6/uL Hgb 15.1 (12.0-16.0) g/dL Hct 45.1 (36-46) % MCV 89.9 (80-100) fL MCH 30.2 (26-34) PG MCHC 33.6 (30-36) % RDW 17.4 H (11.6-14.8) % Plt Count 218 (150-400) X10^3/uL Neut % (Auto) 82.6 H (50-75) % Lymph % (Auto) 12.1 L (25-40) % [place] % (Auto) 4.1 (3-14) % Eos % (Auto) 0.5 L (2-4) % Baso % (Auto) 0.7 (0-2) % Neut # (Auto) 7400 H (9739-2811) /uL Lymph # (Auto) 1100 (9145-1177) /uL [place] # (Auto) 400 (0-900) /uL Eos # (Auto) 0 (0-450) /uL Baso # (Auto) 100 (0-100) /uL Sodium 140 (137-145) mmol/L Potassium 4.1 (3.4-5.1) mmol/L Chloride 104 (98-107) mmol/L Carbon Dioxide 16 L (22-32) mmol/L BUN 7 (7-17) mg/dL Creatinine 0.77 (0.52-1.04) mg/dL Estimated GFR > 60 (>60) mL/min BUN/Creatinine Ratio 9.1 (6-22) Glucose 67 L (70-99) mg/dL Calcium 9.6 (8.4-10.2) mg/dL Magnesium 1.7 (1.6-2.3) mg/dL Total Bilirubin 1.4 H (0.2-1.3) mg/dL AST 33 (14-36) IU/L ALT 24 (<35) IU/L Alkaline Phosphatase 74 (38-126) U/L Total Protein 8.5 H (6.3-8.2) g/dL Albumin 5.0 (3.5-5.0) g/dL Globulin 3.5 (1.7-4.1) g/dL Albumin/Globulin Ratio 1.4 (1.0-2.8) TSH 0.78 D (0.47-4.68) uIU/mL Urine Color Yellow Urine Appearance Clear Urine pH 5.5 Normal (4.5-8.0) Ur Specific [place] >=1.030 H (1.000-1.035) Urine Protein 1+ H (Negative) Urine Glucose (UA) Negative (Negative) g/dL Urine Ketones 3+ H (NEGATIVE) Urine Occult Blood Negative (Negative) Urine Nitrate Negative (Negative) Urine Bilirubin 1+ H (NEGATIVE) Ur Bilirubin Confirm Negative (Negative) Urine Urobilinogen 0.2 (0.2) E.U./dL Ur Leukocyte Esterase Negative (NEGATIVE) Urine RBC 1-5/hpf (0-5/HPF) Urine WBC 1-5/hpf (0-5/HPF) Ur Squamous Epith Cells 5-10 /hpf H (0-5/HPF) Urine Bacteria Occasional (0-1) (None) Hyaline Casts 1-5/lpf (None) Ur Culture Indicated? Cult not indicated Vol Urine Centrifuged 10ml (spun) Salicylates < 1.0 (<20) mg/dL U Opiates 300ng/mL cut Negative (Negative) Ur Oxycodone Screen Negative (Negative) Urine Methadone Screen Negative (Negative) Acetaminophen < 10 (10-30) ug/mL Ur Barbiturates Screen Negative (Negative) U Tricyclic Antidepress Negative (Negative) Ur Phencyclidine Scrn Negative (Negative) Ur Amphetamines Screen Negative (Negative) U Methamphetamines Scrn Negative (Negative) Ur MDMA Scrn (Ecstasy) Negative (Negative) U Benzodiazepines Scrn Positive H (Negative) Urine Cocaine Screen Negative (Negative) U Marijuana (THC) Screen Negative (Negative) Urine Specific [place] Normal (Normal) Ethyl Alcohol < 10 ( - 10) mg/dL Ur Creatinine Normal (Normal) [facility] Narrative Medical decision making narrative: Patient is sent here from primary care office upstairs for concern of dehydration anxiety depression, cachexia, would want patient to have DCR evaluation. Patient seen here 4 days ago for anxiety. Patient was seen by DCR and deemed not detainable. She had crisis phone call to her the following day as planned. She denies denies any SI or HI. No auditory visual hallucinations. She admits she has not been eating and drinking very much recently. She has had significant loss in her relationship recently. She admits drinking alcohol occasionally and coffee drinks. She does not do any illegal drugs but she does do other substances. After history and exam, CBC CMP TSH alcohol level Tylenol aspirin drug screen EKG social work consult magnesium [facility] Medical records reviewed: Primary care office notes this morning, ER visit here February 02, 2025 Differential considered: Includes but not limited to anxiety substance abuse Lab Test results independently reviewed as above. Pertinent findings: WBC 9.0 hemoglobin 15.1 hematocrit 45 sodium 140 potassium 4.1 BUN 7 creatinine 0.77 GFR greater than 60 bicarb 16 glucose 67 AST 33 ALT 24 urinalysis specific gravity greater than 1.03 3+ ketones Independently reviewed EKG normal sinus rhythm normal EKG rate 73 Imaging studies independently reviewed: None indicated at this time Consultations: 12:45 p.m. wax ball knock out workerEmely has been evaluating patient 2:52 p.m.. Emely has complete evaluation and has set up appointment with behavioral health today at 4:00 p.m. with patient locally. Re-evaluations: 2:30 p.m.. Patient agrees to go to behavioral health appointment today at 4:00 p.m.. Reviewed with patient results. Patient in no distress. Discussion: Appropriate for discharge. Patient has appointment today at 4:00 p.m. with Behavioral Health. Diagnosis: Anxiety Discharge Plan Departure Patient Disposition: Home Clinical Impression: Anxiety Instructions: DI for Anxiety -- Adult Activity Restrictions/Additional Instructions: Please decrease your substance use. Please try to keep well hydrated and maintain good nutrition and diet. Please go directly to Behavioral Health office at 4:00 p.m. today as scheduled by the social media developer here today. Return if worse if any questions or concerns Prescriptions: No Action omeprazole 20 mg capsule,delayed release(DR/EC) 20 mg PO DAILY Qty: 90 3RF famotidine 20 mg tablet 20 mg PO BID Qty: 60 3RF alprazolam [Xanax] 0.5 mg tablet 0.5 mg PO DAILY PRN (Reason: anxiety, panic) Qty: 7 2RF naproxen 500 mg tablet 500 mg PO BID Qty: 60 2RF cyclobenzaprine 5 mg tablet 5 mg PO 3XD PRN (Reason: for muscle spasm) Qty: 90 1RF ondansetron 4 mg tablet,disintegrating 4 mg PO Q8H PRN (Reason: for nausea/vomiting) Qty: 30 3RF zolpidem [Ambien] 5 mg tablet 5 mg PO BEDTIME Qty: 30 3RF Rx Instructions: may repeat once if no response in 30-60 minutes Referrals: Milka Powers MD [Primary Care Provider] - Stand Alone Forms: Patient Portal/API/Survey
--- NOTE | 2025-02-06 10:44 | PC.NURSE ---
denies any thoughts of SI/HI.
--- NOTE | 2025-02-06 10:45 | EKG_ITS ---
[place] [id number] [place] [id number] Test Date: 2025-02-06 Pat Name: Shasta Daniels Department: [facility] Room: Gender: Female Home Therapy Clinician: : 1975 Requested By: Order Number: [id number] Reading MD: Wolf Moser MD Measurements Intervals [place] Rate: 73 P: 60 CA: 130 QRS: 65 QRSD: 82 T: 49 QT: 388 QTc: 427 Interpretive Statements Normal sinus rhythm Electronically Signed On 02-06-2025 14:43:18 PDT by Wolf Moser MD
[2025-02-06 11:07] LABS: Add Manual Diff / Slide Review NO; Basophils Absolute Auto 100 /uL (0-100); Basophils Percent Auto 0.7 % (0-2); Eosinophils Absolute Auto 0 /uL (0-450); Eosinophils Percent Auto 0.5 % (2-4); Hematocrit 45.1 % (36-46); Hemoglobin 15.1 g/dL (12.0-16.0); Lymphocytes Absolute Auto 1100 /uL (1100-4500); Lymphocytes Percent Auto 12.1 % (25-40); Mean Corpuscular HGB Conc 33.6 % (30-36); Mean Corpuscular Hemoglobin 30.2 PG (26-34); Mean Corpuscular Volume 89.9 fL (80-100); Monocytes Absolute Auto 400 /uL (0-900); Monocytes Percent Auto 4.1 % (3-14); Neutrophils Absolute Auto 7400 /uL (1500-7000); Neutrophils Percent Auto 82.6 % (50-75); Platelet Count 218 X10^3/uL (150-400); Red Blood Cell Count 5.01 X10^6/uL (4.0-5.2); Red Cell Distribution Width 17.4 % (11.6-14.8)
[2025-02-06 11:14] LABS: Ur Creatinine Normal (Normal); Ur Specific Gravity Normal (Normal); Urine Amphetamines Negative (Negative); Urine Barbiturates Negative (Negative); Urine Benzodiazepines Positive (Negative); Urine Cocaine Negative (Negative); Urine MDMA Negative (Negative); Urine Methadone Negative (Negative); Urine Opiates Negative (Negative); Urine Phencyclidine Negative (Negative); Urine THC Negative (Negative); Urine Tricyclic Antidepressant Negative (Negative); Urine pH Normal (Normal)
[2025-02-06 11:15] LABS: Urine Oxycodone Negative (Negative)
[2025-02-06 11:21] LABS: Acetaminophen < 10 ug/mL (10-30); Alanine Aminotransferase 24 IU/L (<35); Albumin Globulin Ratio 1.4 (1.0-2.8); Alkaline Phosphatase 74 U/L (38-126); Aspartate Aminotransferase 33 IU/L (14-36); BUN Creatinine Ratio 9.1 (6-22); Bilirubin Total 1.4 mg/dL (0.2-1.3); Blood Urea Nitrogen 7 mg/dL (7-17); Calcium 9.6 mg/dL (8.4-10.2); Carbon Dioxide 16 mmol/L (22-32); Chloride 104 mmol/L (98-107); Estimated Glomerular Filt Rate > 60 mL/min (>60); Ethanol (ETOH) < 10 mg/dL; Globulin 3.5 g/dL (1.7-4.1); Glucose 67 mg/dL (70-99); HEMOLYSIS < 15 (0-50); Magnesium 1.7 mg/dL (1.6-2.3); Potassium 4.1 mmol/L (3.4-5.1); Salicylate < 1.0 mg/dL (<20); Sodium 140 mmol/L (137-145); Total Protein 8.5 g/dL (6.3-8.2)
[2025-02-06 11:23] LABS: Appearance Urine UA CLEAR; Bilirubin Urine UA 1+ (NEGATIVE); Color Urine UA YELLOW; Glucose Urine UA NEGATIVE (Negative); Ketones Urine UA 3+ (NEGATIVE); Leukocyte Esterase Urine UA NEGATIVE (NEGATIVE); Nitrite Urine UA NEGATIVE (Negative); Occult Blood Urine UA NEGATIVE (Negative); Protein Urine UA 1+ (Negative); Specific Gravity Urine UA >=1.030 (1.000-1.035); Urobilinogen Urine UA 0.2 E.U./dL (0.2)
[2025-02-06 11:45] LABS: pH Urine UA 5.5 (4.5-8.0)
[2025-02-06 11:46] LABS: Bacteria Urine Occasional (0-1); Hyaline Casts Urine 1-5/LPF; RBC Urine 1-5/HPF (0-5/HPF); Squamous Epithelial Cell Urine 5-10 /HPF (0-5/HPF); Urine Volume 10mL (spun); WBC Urine 1-5/HPF (0-5/HPF)
[2025-02-06 11:47] LABS: Culture Indicated Urine Cult Not Indicated
[2025-02-06] MEDS: ONDANSETRON 4 MG/2 ML INJ IV (11:47)
[2025-02-06] MEDS: SODIUM CHLORIDE 0.9% 1,000 ML 1000 ML IV (11:47)
[2025-02-06] MEDS: ACETAMINOPHEN 325 MG TABLET 975 MG PO (11:47)
[2025-02-06 11:58] LABS: Ictotest Urine Negative (Negative)
--- NOTE | 2025-02-06 13:01 | CM.SWNOTE ---
ED GRADE CHECKER Assessment Note: GRADE CHECKER - Press Tool Maker Assessment GRADE CHECKER/Press Tool Maker Assessment Time Spent with Patient Start date 02/06/25 Visit Start Time 11:45 End date 02/06/25 Visit End Time 12:05 Total time Care Management spent on 20 minutes patient visit-in minutes Mental Health Screening Include Onset, Duration, Intensity Presenting Problem Patient presents to the ED at the recommendation of their PCP for concerns of grave disability, malnourishment. Patient expresses today that she is depressed and not suicidal at this time. Precipitating Event(s) Patient presented to the ED on 01/29/25 and 02/02/25 for acute anxiety, complicated grief, SI. Patient was evaluated by a Designated Crisis Responder during both visits and have been deemed undetainable as patient wasn't acutely suicidal and not experiencing any hallucinations; patient was not acutely malnourished or exhibiting grave disability according to DCR evaluation. Patient Strengths Patient is cooperative and receptive to any referrals at this time, just not open to involuntary psychiatric hospitalization. Current Behavioral Health Provider(s) Not currently established with Include Facility, Provider, Ph. # a Provider. Pt spoke with Mobile Crisis Outreach Team Mental Health ProfessionalTami, on 02/03. Psych. Hx Mental Health and Chemical Patient has a hx of an eating Dependency disorder, depression, anxiety, complex grief disorder. Family Hx of Behavioral Abuse Patient is experiencing the loss of her life partner, her partner approximately 6 months ago. Psychiatric Hospitalizations (date(s)/ None reported. location) Psychosocial information & Support Patient is a 49yo female, Systems resident of [place], [facility]. Patient does not have many supports in the local area, she states she has a mother and sister who live in [place] but she is not close to them. School/Work Unemployed/disability Legal Concerns Legal Matters - Outstanding Issues None reported. Mental Status Orientation (Person/Place/Time) AOx3 Stated Mood Okay today Affect (Congruent with Mood?) Flat, congruent with mood Thought Content - Specify/Describe None reported, none identified Obsessions, Delusions, Hallucinations during assessment. Thought Processes (Tunvjfd-Jhvojjqx-Qzii Logical, goal directed. Etgdblmq-Jhopmejq-Xhfjbjvhiy- Fvarbtgnhxgybv-Oafdimh-Zwqdozrikgdp- Thought Blocking) Speech (Hillsd-Lkki-Vguvoxr-Rapid-Soft- Soft, normal Loud-Pressured) Motor (Vwjohy-Hrfxldpfk-Paro-Other) Slow, normal Insight (Dfbn-Rwfg-Pfcx/Limited) Fair/limited Judgement (Tgrr-Ioub-Jmro/Limited) Fair/limited Impulse Control (Adequate-Impaired) Impaired due to disordered eating Memory (Fdyyyumgq-Kpyabb-Apwhly, Intact Impaired-Intact) Concentration (Intact-Impaired) Intact Attention (Intact-Impaired) Intact Behavior (Appropriate-Inappropriate) Appropriate Additional Comment Patient is calm, cooperative and communicative during this assessment. Risk Assessment Suicidal Ideation (Plan) No Homicidal Ideation (Plan) No Comment [place]-SUICIDE SEVERITY RATING SCALE 1) Have you wished you were or wished you could go to sleep and not wake up? YES 2) Have you actually had any thoughts of killing yourself? NO 3) Have you been thinking about how you might do this? NO 4) Have you had these thoughts and had some intention of acting on them? NO 5) Have you started to work out or worked out the details of how to kill yourself? Do you intend to carry out this plan? NO 6) Have you ever done anything, started to do anything, or prepared to do anything to end your life? NO If YES, ask: Was this within the past three months? NO *Note: When discussing her calorie restriction, patient admits her goal is to lose weight and see the scale go down. Intervention Intervention Reviewed chart and discussed with ED Provider pt's medical status and discharge needs. Per ED Provider, pt does not present with criteria for DCR dispatch/evaluation at this time. Provider states pt is medically cleared after IV fluid intervention. ED GRADE CHECKER meets with patient. Patient states nothing has changed since this GRADE CHECKER's last assessment with her. Patient explains she has been restricting her calories still but had an iced coffee yesterday as well as sips of water throughout the day. ED GRADE CHECKER discussed goals of care. Patient still believes she does not need inpatient psych treatment at this time. Patient endorses agreeing with outpatient Psych treatment after her Primary Care Provider appointment today, . Patient agreed to this GRADE CHECKER assisting with coordiation of this intake appointment at [facility], pt requested only meeting with female therapist. ED GRADE CHECKER calls [facility] Provider Line and spoke with MIKE Suresh. It is confirmed that pt was able to speak with MIKE Garrett on 02/03 and can still have a follow up call post- discharge if DCR assessment not necessary at this time. MIKE Suresh also explains that pt's eating disorder would be a barrier to placement and would likely result in a Walk Away due to most facilities not admitting a hx of eating disorders. At this time, it is the opinion of this GRADE CHECKER that patient would benefit from inpatient psychiatric hospitalization for medication stabilization but understands that patient is not voluntary for inpatient treatment and does not meet criteria for [facility] placement at this time (not actively suicidal, not gravely disabled). GRADE CHECKER informs ED provider, Dr. Auguste, who indicates agreement. GRADE CHECKER informs LIYA Lind. Plan RA Plan ED GRADE CHECKER to coordinate with [facility] for intake appointment as soon as available. ED GRADE CHECKER to coordinate OT follow up for additional support in the community post- discharge, ED GRADE CHECKER to [place] [facility] [place]. BALA Frazier
[2025-02-06 13:14] LABS: TSH w/ Reflex to FT4 0.78 uIU/mL (0.47-4.68)
--- NOTE | 2025-02-06 14:39 | CM.SWNOTE ---
ED CHEMICAL EQUIPMENT CONTROLLER Assessment Note: Pt has been medically cleared to discharge per ED Provider, would benefit from psychiatric follow up. Per patient conversation with PCP earlier in the day, pt is open to outpatient psychiatry/MH counseling. PCP placed a referral and coordinated with [facility] for pt to be seen as soon as available. CHEMICAL EQUIPMENT CONTROLLER coordinated with [facility] senior branch manager and LMHC at clinic who offered pt a soonest appointment on , 02/06 at 4:00pm or 02/11 at 1:00pm. CHEMICAL EQUIPMENT CONTROLLER reviewed above dates with pt and pt agreeable to meeting today, 02/06 at 4:00pm. CHEMICAL EQUIPMENT CONTROLLER also reviewed [facility] ([facility]) follow up, pt agreeable to a phone call from them tomorrow, 02/07. CHEMICAL EQUIPMENT CONTROLLER reviews this with ED provider Dr. Auguste who indicates agreement and understanding. Plan: Pt to follow up with intake appointment at [facility] on 02/06 at 4:00pm. Mobile Crisis Outreach Team to also follow with a phone call on 02/07. BALA Frazier
== END 2025-02-06 14:56 | disposition home or self-care (01) ==
PROVIDERS: Emergency Provider Emergency Medicine; PCP Student in an Organized Health Care Education/Training Program
DX: F41.9 Anxiety disorder, unspecified (principal)
CPT/HCPCS: 36415; 80053; 80305; 80320; 80329; 81001; 83735; 84443; 85025; 93005; 93010; 96361; 96374; 99284; G0480; J2405

== ENCOUNTER → 2025-02-10 15:45 | Outpatient (CLI) | payer OTHER, SELFPAY ==
--- NOTE | 2025-02-10 16:11 | DI.CT.S_ITS ---
PROCEDURE: CT SOFT TISSUE NECK W CON INDICATIONS: neck mass TECHNIQUE: After the administration of intravenous contrast, 3.0 mm axial sections acquired from the sella to the aortic arch. Additional oblique axial 3.0 mm sections acquired through the pharynx. 3 mm thick coronal and sagittal reformats were generated. For radiation dose reduction, the following was used: automated exposure control. COMPARISON: [facility], , THYROID, 02/05/2025, 7:21. FINDINGS: Image quality: Excellent. Lymph nodes: No enlarged lymph nodes seen throughout the neck. Vessels: Visualized vasculature appears patent. Neck spaces: The oropharynx, nasopharynx, and pharynx demonstrate no mucosal lesions. The vocal cords, false vocal cords, pyriform sinuses, epiglottis, vallecula, and tongue base all appear normal. Extramucosal spaces appear unremarkable. Glands: The parotid and submandibular glands appear normal. Thyroid gland demonstrates a nodule in the right lobe measuring 2.8 x 2.2 cm. No narrowing of the airway. Miscellaneous: Visualized brain and orbits appear normal. Lung apices appear clear. Superficial soft tissues appear normal. Bones: No suspicious bony lesions. Air-fluid level within the left maxillary sinus. Small right maxillary sinus mucous retention cyst. Visualized sinuses and mastoids otherwise appear unremarkable. Degenerative changes of the spine. IMPRESSION: Marker placed in the right lower neck anterior to the right thyroid lobe where there is a nodule measuring up to 2.8 cm. Recommend further evaluation with fine-needle aspiration. Dictated by: Ken Ashley M.D. on 02/10/2025 at 16:36 Approved by: Ken Ashley M.D. on 02/10/2025 at 16:43
== END ==
PROVIDERS: PCP Student in an Organized Health Care Education/Training Program; Referring Provider Student in an Organized Health Care Education/Training Program; Visit Provider Student in an Organized Health Care Education/Training Program
DX: R22.1 Localized swelling, mass and lump, neck (principal); E04.1 Nontoxic single thyroid nodule
CPT/HCPCS: 70491; Q9967

== ENCOUNTER 2025-02-18 11:14 | Emergency (ER) | payer OTHER, SELFPAY ==
[2025-02-18] VITALS (19 sets, daily range): BP systolic 93–120; BP diastolic 57–89; PULSE 80–124; RESP 14–25; TEMP 36.4; O2SAT 94–100; BMI 22.5
--- NOTE | 2025-02-18 11:32 | EKG_ITS ---
[address] [address] Test Date: 2025-02-18 Pat Name: Shasta aDniels Department: Room: Gender: Female [employer] Operator: JACKIE : 1975 Requested By: Order Number: [id number] Reading MD: Wolf Moser MD Measurements Intervals [place] Rate: 105 P: 75 GA: 130 QRS: 66 QRSD: 78 T: 9 QT: 316 QTc: 417 Interpretive Statements Sinus tachycardia Possible Left atrial enlargement Electronically Signed On 02-18-2025 11:53:37 PDT by Wolf Moser MD
--- NOTE | 2025-02-18 12:06 | ED.DIZZY ---
HPI - Dizziness <Wade Auguste MD - Last Filed: 02/20/25 08:11> General Chief Complaint: Dizziness Stated Complaint: Fast heart rate Time Seen by Provider: 02/18/25 11:40 Source: patient Mode of arrival: Ambulatory History of Present Illness HPI Narrative: Patient is sent here by primary care office prior to arrival. Patient walked to the office this morning. She lives across the [address]. Patient has not eaten in 17 days she states. She was seen by me here 12 days ago for the same complaint. Patient is going through grieving. Lost significant other recently. Has been drinking 1 beer a day. Does admit to marijuana use. When I saw patient 12 days ago social work was involved. Patient was sent over to behavioral health office and met a counselor and she has been meeting once a week. Patient states she does not like going but she know she needs it. No SI or HI. No auditory or visual hallucinations. She is awake alert oriented x4. She has felt dizzy recently. She knows she has not been eating and drinking enough. Related Data Previous Rx's Medication Instructions Recorded omeprazole 20 mg capsule,delayed 20 mg PO DAILY Barretts esophagus 07/10/23 release #90 caps famotidine 20 mg tablet 20 mg PO BID #60 tabs 12/05/24 cyclobenzaprine 5 mg tablet 5 mg PO 3XD PRN for muscle spasm 12/11/24 #90 tabs naproxen 500 mg tablet 500 mg PO BID #60 tabs 12/11/24 ondansetron 4 mg disintegrating 4 mg PO Q8H PRN for 12/11/24 tablet nausea/vomiting #30 tabs alprazolam 0.5 mg tablet (Xanax) 0.5 mg PO DAILY PRN anxiety, panic 01/02/25 #7 tabs zolpidem 5 mg tablet (Ambien) 5 mg PO BEDTIME #30 tabs 01/30/25 Allergies Allergy/AdvReac Type Severity Reaction Status Date / Time sulfamethoxazole AdvReac Intermediate Itching Verified 02/18/25 10:50 [From Bactrim] and mild rash on arms and torso trimethoprim [From Bactrim] AdvReac Intermediate Itching Verified 02/18/25 10:50 and mild rash on arms and torso Review of Systems <Wade Auguste MD - Last Filed: 02/20/25 08:11> Review of Systems Narrative: GENERAL: Negative chills, fatigue, malaise, fever, sweats. HEENT: Negative sinus pain, ear pain, sore throat RESPIRATORY: Negative dyspnea, cough CARDIOVASCULAR: Negative chest pain, palpitations GASTROINTESTINAL: Negative vomiting, nausea, abdominal pain : Negative dysuria, frequency, hematuria MUSCULOSKELETAL: Negative muscle or bony pain SKIN: Negative rash, skin lesions NEUROLOGIC: Negative weakness, numbness, negative seizure, positive dizzy Psychiatric: Negative SI negative HI negative hallucination ROS Unobtainable: All systems reviewed & are unremarkable except as noted in HPI and below Patient History <Wade Auguste MD - Last Filed: 02/20/25 08:11> Medical History Chondroid syringoma GERD (gastroesophageal reflux disease) Menarche (~1988) 0 PTSD (post-traumatic stress disorder) Depression Anxiety Lumbar spine pain (2010) Chronic back pain (2010) Painful menstrual periods (2014) Ovarian cyst Irregular periods/menstrual cycles (2014) Abnormal Pap smear of cervix (1999) Lee's esophagus (2009) Surgical History Anesthesia History of right knee surgery History of cone biopsy of cervix Family History Mother Diabetes mellitus CT (myocardial infarction) Emphysema lung Hypertension History of heart disease Hyperlipidemia Father Hypertension Hyperlipidemia History of heart disease Family/Other Breast cancer Social History Smoking Status: Never smoker Smoking Status: Never smoker Alcohol type: beer Exam <Wade Auguste MD - Last Filed: 02/20/25 08:11> Narrative Exam Narrative: GENERAL: in no distress, not toxic not dyspneic HEAD: Normocephalic. EYES: Pupils equal round ENT: Mucous membranes moist. NECK: Trachea midline. CARDIOVASCULAR: Regular rate and rhythm, tachycardic RESPIRATORY: Clear to auscultation. Breath sounds equal bilaterally. No wheezes, rales, or rhonchi. GASTROINTESTINAL: Abdomen soft, non-tender EXTREMITIES: No gross deformities. BACK: No flank tenderness. NEURO: AOx4. Clear speech SKIN: Warm and dry PSYCH: Not anxious, is cooperative, does have flat affect. No SI no HI. No auditory or visual hallucinations. Initial Vital Signs Initial Vital Signs: Vital Signs Temperature 97.5 F L 02/18/25 11:19 Pulse Rate 124 H 02/18/25 11:19 Respiratory Rate 20 02/18/25 11:19 Blood Pressure 120/89 02/18/25 11:19 Pulse Oximetry 97 02/18/25 11:19 Oxygen Delivery Method Room Air 02/18/25 11:19 <David Rai DO - Last Filed: 02/19/25 05:18> Initial Vital Signs Initial Vital Signs: Vital Signs Temperature 97.5 F L 02/18/25 11:19 Pulse Rate 124 H 02/18/25 11:19 Respiratory Rate 20 02/18/25 11:19 Blood Pressure 120/89 02/18/25 11:19 Pulse Oximetry 97 02/18/25 11:19 Oxygen Delivery Method Room Air 02/18/25 11:19 <Reza Hayward MD - Last Filed: 02/19/25 21:42> Initial Vital Signs Initial Vital Signs: Vital Signs Temperature 97.5 F L 02/18/25 11:19 Pulse Rate 124 H 02/18/25 11:19 Respiratory Rate 20 02/18/25 11:19 Blood Pressure 120/89 02/18/25 11:19 Pulse Oximetry 97 02/18/25 11:19 Oxygen Delivery Method Room Air 02/18/25 11:19 Course <Wade Auguste MD - Last Filed: 02/20/25 08:11> Orders Ordered: Discontinued Medications Sodium Chloride (Normal Saline 0.9%) 1,000 mls @ 1,000 mls/hr IV BOLUS ONE Stop: 02/18/25 12:39 Last Infusion: 02/18/25 13:36 Dose: Infused Documented By: Admin: 02/18/25 12:15 Dose: 1,000 mls/hr Documented By: SB Lorazepam (Lorazepam 0.5 Mg Tablet) 0.5 mg PO NOW ONE Stop: 02/18/25 22:30 Last Admin: 02/18/25 22:55 Dose: 0.5 mg Documented By: RL Lorazepam (Lorazepam 0.5 Mg Tablet) 1 mg PO NOW ONE Stop: 02/19/25 07:47 Last Admin: 02/19/25 07:52 Dose: 1 mg Documented By: CODY Ondansetron HCl (Ondansetron 4 Mg Odt) 4 mg SL NOW ONE Stop: 02/19/25 06:10 Last Admin: 02/19/25 06:12 Dose: 4 mg Documented By: AB Vital Signs Vital signs: Vital Signs - 8 hr 02/19/25 13:47 02/19/25 13:48 02/19/25 13:48 Temperature Pulse Rate 99 H 84 Respiratory Rate Blood Pressure 103/65 Pulse Oximetry 100 99 Oxygen Delivery Method 02/19/25 13:49 02/19/25 15:59 02/19/25 15:59 Temperature 97.7 F Pulse Rate 88 85 Respiratory Rate 18 Blood Pressure 103/65 100/69 Pulse Oximetry 99 96 Oxygen Delivery Method Room Air 02/19/25 16:00 02/19/25 16:01 Temperature Pulse Rate 87 85 Respiratory Rate 12 Blood Pressure 100/69 Pulse Oximetry 100 100 Oxygen Delivery Method Room Air <David Rai DO - Last Filed: 02/19/25 05:18> Orders Ordered: Discontinued Medications Sodium Chloride (Normal Saline 0.9%) 1,000 mls @ 1,000 mls/hr IV BOLUS ONE Stop: 02/18/25 12:39 Last Infusion: 02/18/25 13:36 Dose: Infused Documented By: Admin: 02/18/25 12:15 Dose: 1,000 mls/hr Documented By: LAMAR Lorazepam (Lorazepam 0.5 Mg Tablet) 0.5 mg PO NOW ONE Stop: 02/18/25 22:30 Last Admin: 02/18/25 22:55 Dose: 0.5 mg Documented By: ALIYAH Lorazepam (Lorazepam 0.5 Mg Tablet) 1 mg PO NOW ONE Stop: 02/19/25 07:47 Last Admin: 02/19/25 07:52 Dose: 1 mg Documented By: CODY Ondansetron HCl (Ondansetron 4 Mg Odt) 4 mg SL NOW ONE Stop: 02/19/25 06:10 Last Admin: 02/19/25 06:12 Dose: 4 mg Documented By: AB Vital Signs Vital signs: Vital Signs - 8 hr 02/19/25 13:47 02/19/25 13:48 02/19/25 13:48 Temperature Pulse Rate 99 H 84 Respiratory Rate Blood Pressure 103/65 Pulse Oximetry 100 99 Oxygen Delivery Method 02/19/25 13:49 02/19/25 15:59 02/19/25 15:59 Temperature 97.7 F Pulse Rate 88 85 Respiratory Rate 18 Blood Pressure 103/65 100/69 Pulse Oximetry 99 96 Oxygen Delivery Method Room Air 02/19/25 16:00 02/19/25 16:01 Temperature Pulse Rate 87 85 Respiratory Rate 12 Blood Pressure 100/69 Pulse Oximetry 100 100 Oxygen Delivery Method Room Air <Reza Hayward MD - Last Filed: 02/19/25 21:42> Orders Ordered: Discontinued Medications Sodium Chloride (Normal Saline 0.9%) 1,000 mls @ 1,000 mls/hr IV BOLUS ONE Stop: 02/18/25 12:39 Last Infusion: 02/18/25 13:36 Dose: Infused Documented By: Admin: 02/18/25 12:15 Dose: 1,000 mls/hr Documented By: SB Lorazepam (Lorazepam 0.5 Mg Tablet) 0.5 mg PO NOW ONE Stop: 02/18/25 22:30 Last Admin: 02/18/25 22:55 Dose: 0.5 mg Documented By: RL Lorazepam (Lorazepam 0.5 Mg Tablet) 1 mg PO NOW ONE Stop: 02/19/25 07:47 Last Admin: 02/19/25 07:52 Dose: 1 mg Documented By: MPO Ondansetron HCl (Ondansetron 4 Mg Odt) 4 mg SL NOW ONE Stop: 02/19/25 06:10 Last Admin: 02/19/25 06:12 Dose: 4 mg Documented By: AB Vital Signs Vital signs: Vital Signs - 8 hr 02/19/25 13:47 02/19/25 13:48 02/19/25 13:48 Temperature Pulse Rate 99 H 84 Respiratory Rate Blood Pressure 103/65 Pulse Oximetry 100 99 Oxygen Delivery Method 02/19/25 13:49 02/19/25 15:59 02/19/25 15:59 Temperature 97.7 F Pulse Rate 88 85 Respiratory Rate 18 Blood Pressure 103/65 100/69 Pulse Oximetry 99 96 Oxygen Delivery Method Room Air 02/19/25 16:00 02/19/25 16:01 Temperature Pulse Rate 87 85 Respiratory Rate 12 Blood Pressure 100/69 Pulse Oximetry 100 100 Oxygen Delivery Method Room Air MDM - Dizziness <Wade Auguste MD - Last Filed: 02/20/25 08:11> Lab Data 02/18/25 12:00 02/18/25 12:00 Labs: Lab Results 02/18/25 02/18/25 02/18/25 Range/Units 12:00 12:37 13:20 WBC 6.0 (4.5-11.0) X10^3/uL RBC 5.09 (4.0-5.2) X10^6/uL Hgb 15.7 (12.0-16.0) g/dL Hct 45.1 (36-46) % MCV 88.6 (80-100) fL MCH 30.9 (26-34) PG MCHC 34.8 (30-36) % RDW 17.1 H (11.6-14.8) % Plt Count 133 L (150-400) X10^3/uL Neut % (Auto) 78.2 H (50-75) % Lymph % (Auto) 12.0 L (25-40) % Pra[place] % (Auto) 7.7 (3-14) % Eos % (Auto) 1.5 L (2-4) % Baso % (Auto) 0.6 (0-2) % Neut # (Auto) 4700 (4011-3268) /uL Lymph # (Auto) 700 L (9439-3193) /uL [place] # (Auto) 500 (0-900) /uL Eos # (Auto) 100 (0-450) /uL Baso # (Auto) 0 (0-100) /uL Sodium 139 (137-145) mmol/L Potassium 3.4 (3.4-5.1) mmol/L Chloride 106 (98-107) mmol/L Carbon Dioxide 14 L (22-32) mmol/L BUN 11 (7-17) mg/dL Creatinine 0.73 (0.52-1.04) mg/dL Estimated GFR > 60 (>60) mL/min BUN/Creatinine Ratio 15.1 (6-22) Glucose 104 H (70-99) mg/dL Calcium 9.6 (8.4-10.2) mg/dL Magnesium 1.8 (1.6-2.3) mg/dL Total Bilirubin 1.7 H (0.2-1.3) mg/dL AST 30 (14-36) IU/L ALT 18 (<35) IU/L Alkaline Phosphatase 86 (38-126) U/L Ammonia < 9 L (9-30) umol/L Total Creatine Kinase 20 L (30-135) U/L Total Protein 8.1 (6.3-8.2) g/dL Albumin 4.6 (3.5-5.0) g/dL Globulin 3.5 (1.7-4.1) g/dL Albumin/Globulin Ratio 1.3 (1.0-2.8) HCG, Quant < 2.39 mIU/mL Urine RBC None seen (0-5/HPF) Urine WBC 0-1/hpf (0-5/HPF) Ur Squamous Epith Cells 1-5 /hpf (0-5/HPF) Urine Bacteria Few (2-10) H (None) Hyaline Casts 0-1/lpf (None) Granular Casts 0-1/lpf (None) Urine Mucus 3+ H (Negative) Ur Culture Indicated? Cult not indicated Vol Urine Centrifuged 10ml (spun) U Opiates 300ng/mL cut Negative (Negative) Ur Oxycodone Screen Negative (Negative) Urine Methadone Screen Negative (Negative) Ur Barbiturates Screen Negative (Negative) U Tricyclic Antidepress Negative (Negative) Ur Phencyclidine Scrn Negative (Negative) Ur Amphetamines Screen Negative (Negative) U Methamphetamines Scrn Negative (Negative) Ur MDMA Scrn (Ecstasy) Negative (Negative) U Benzodiazepines Scrn Negative (Negative) Urine Cocaine Screen Negative (Negative) U Marijuana (THC) Screen Negative (Negative) Urine pH Normal (Normal) Urine Specific [place] Normal (Normal) Ethyl Alcohol < 10 ( - 10) mg/dL Ur Creatinine Normal (Normal) SARS-CoV-2 (PCR) (Negative) 02/18/25 Range/Units 15:24 WBC (4.5-11.0) X10^3/uL RBC (4.0-5.2) X10^6/uL Hgb (12.0-16.0) g/dL Hct (36-46) % MCV (80-100) fL MCH (26-34) PG MCHC (30-36) % RDW (11.6-14.8) % Plt Count (150-400) X10^3/uL Neut % (Auto) (50-75) % Lymph % (Auto) (25-40) % [place] % (Auto) (3-14) % Eos % (Auto) (2-4) % Baso % (Auto) (0-2) % Neut # (Auto) (9232-8421) /uL Lymph # (Auto) (9497-7564) /uL [place] # (Auto) (0-900) /uL Eos # (Auto) (0-450) /uL Baso # (Auto) (0-100) /uL Sodium (137-145) mmol/L Potassium (3.4-5.1) mmol/L Chloride (98-107) mmol/L Carbon Dioxide (22-32) mmol/L BUN (7-17) mg/dL Creatinine (0.52-1.04) mg/dL Estimated GFR (>60) mL/min BUN/Creatinine Ratio (6-22) Glucose (70-99) mg/dL Calcium (8.4-10.2) mg/dL Magnesium (1.6-2.3) mg/dL Total Bilirubin (0.2-1.3) mg/dL AST (14-36) IU/L ALT (<35) IU/L Alkaline Phosphatase (38-126) U/L Ammonia (9-30) umol/L Total Creatine Kinase (30-135) U/L Total Protein (6.3-8.2) g/dL Albumin (3.5-5.0) g/dL Globulin (1.7-4.1) g/dL Albumin/Globulin Ratio (1.0-2.8) HCG, Quant mIU/mL Urine RBC (0-5/HPF) Urine WBC (0-5/HPF) Ur Squamous Epith Cells (0-5/HPF) Urine Bacteria (None) Hyaline Casts (None) Granular Casts (None) Urine Mucus (Negative) Ur Culture Indicated? Vol Urine Centrifuged U Opiates 300ng/mL cut (Negative) Ur Oxycodone Screen (Negative) Urine Methadone Screen (Negative) Ur Barbiturates Screen (Negative) U Tricyclic Antidepress (Negative) Ur Phencyclidine Scrn (Negative) Ur Amphetamines Screen (Negative) U Methamphetamines Scrn (Negative) Ur MDMA Scrn (Ecstasy) (Negative) U Benzodiazepines Scrn (Negative) Urine Cocaine Screen (Negative) U Marijuana (THC) Screen (Negative) Urine pH (Normal) Urine Specific [place] (Normal) Ethyl Alcohol ( - 10) mg/dL Ur Creatinine (Normal) SARS-CoV-2 (PCR) Negative (Negative) Urine Dip Bedside Urine Glucose Negative Bedside Urine Bilirubin - Negative Bedside Urine Ketone +++ 80 Urine Specific [place] 1.030 Bedside Urine Occult Blood - Negative Bedside Urine pH 6.0 Bedside Urine Protein ++ 100 Bedside Urine Urobilinogen - Negative Bedside Urine Nitrite - Negative Bedside Urine Leukocytes - Negative Esterase [facility] Narrative Medical decision making narrative: Patient is sent here by primary care office prior to arrival. Patient walked to the office this morning. She lives across the [address]. Patient has not eaten in 17 days she states. She was seen by me here 12 days ago for the same complaint. Patient is going through grieving. Lost significant other recently. Has been drinking 1 beer a day. Does admit to marijuana use. When I saw patient 12 days ago social work was involved. Patient was sent over to behavioral health office and met a counselor and she has been meeting once a week. Patient states she does not like going but she know she needs it. No SI or HI. No auditory or visual hallucinations. She is awake alert oriented x4. She has felt dizzy recently. She knows she has not been eating and drinking enough. After history and exam, CBC CMP magnesium alcohol level normal saline EKG [facility] Medical records reviewed: ER visit here 12 days ago Differential considered: Includes but not limited to depression anxiety grieving Lab Test results independently reviewed as above. Pertinent findings: WBC 6.0 hemoglobin 15.7 sodium 139 potassium 3.4 bicarb 14 BUN 11 creatinine 0.73 GFR greater than 60 glucose 104 AST 30 ALT 18 total protein 8.1 albumin 4.6 globulin 3.5, drug screen negative. COVID negative Independently reviewed EKG sinus tachycardia rate 105 Imaging studies independently reviewed: None indicated at this time Consultations: 1:30 p.m.. Spoke with hospitalist, Dr. Salas, he has reviewed patient's chart and laboratory studies with me. There is no admission criteria for patient. Patient electrolytes are reassuring and does not have any restrictions at this time for restarting diet. pull worker, Sylvia, has spoken with patient as well as with primary care provider that sent patient here. 3:05 p.m.. Patrizia, dietitian has completed evaluation and recommendations to patient however she does not feel the patient is going to comply with protein supplements and drinks. Milka Reis, nurse and social media assistant Sylvia RN conference with and Patrizia. We have decided to pursue DCR Re-evaluations: 3:00 p.m.. Dietitian has been with patient Discussion: Diagnosis: Depression 6:[address] Auguste: Sign out to Dr Rai, DCR is here to evaluate patient. <David Rai, - Last Filed: 02/19/25 05:18> Lab Data Labs: Lab Results 02/18/25 02/18/25 02/18/25 Range/Units 12:00 12:37 13:20 WBC 6.0 (4.5-11.0) X10^3/uL RBC 5.09 (4.0-5.2) X10^6/uL Hgb 15.7 (12.0-16.0) g/dL Hct 45.1 (36-46) % MCV 88.6 (80-100) fL MCH 30.9 (26-34) PG MCHC 34.8 (30-36) % RDW 17.1 H (11.6-14.8) % Plt Count 133 L (150-400) X10^3/uL Neut % (Auto) 78.2 H (50-75) % Lymph % (Auto) 12.0 L (25-40) % [place] % (Auto) 7.7 (3-14) % Eos % (Auto) 1.5 L (2-4) % Baso % (Auto) 0.6 (0-2) % Neut # (Auto) 4700 (0690-1650) /uL Lymph # (Auto) 700 L (5341-4548) /uL [place] # (Auto) 500 (0-900) /uL Eos # (Auto) 100 (0-450) /uL Baso # (Auto) 0 (0-100) /uL Sodium 139 (137-145) mmol/L Potassium 3.4 (3.4-5.1) mmol/L Chloride 106 (98-107) mmol/L Carbon Dioxide 14 L (22-32) mmol/L BUN 11 (7-17) mg/dL Creatinine 0.73 (0.52-1.04) mg/dL Estimated GFR > 60 (>60) mL/min BUN/Creatinine Ratio 15.1 (6-22) Glucose 104 H (70-99) mg/dL Calcium 9.6 (8.4-10.2) mg/dL Magnesium 1.8 (1.6-2.3) mg/dL Total Bilirubin 1.7 H (0.2-1.3) mg/dL AST 30 (14-36) IU/L ALT 18 (<35) IU/L Alkaline Phosphatase 86 (38-126) U/L Ammonia < 9 L (9-30) umol/L Total Creatine Kinase 20 L (30-135) U/L Total Protein 8.1 (6.3-8.2) g/dL Albumin 4.6 (3.5-5.0) g/dL Globulin 3.5 (1.7-4.1) g/dL Albumin/Globulin Ratio 1.3 (1.0-2.8) HCG, Quant < 2.39 mIU/mL Urine RBC None seen (0-5/HPF) Urine WBC 0-1/hpf (0-5/HPF) Ur Squamous Epith Cells 1-5 /hpf (0-5/HPF) Urine Bacteria Few (2-10) H (None) Hyaline Casts 0-1/lpf (None) Granular Casts 0-1/lpf (None) Urine Mucus 3+ H (Negative) Ur Culture Indicated? Cult not indicated Vol Urine Centrifuged 10ml (spun) U Opiates 300ng/mL cut Negative (Negative) Ur Oxycodone Screen Negative (Negative) Urine Methadone Screen Negative (Negative) Ur Barbiturates Screen Negative (Negative) U Tricyclic Antidepress Negative (Negative) Ur Phencyclidine Scrn Negative (Negative) Ur Amphetamines Screen Negative (Negative) U Methamphetamines Scrn Negative (Negative) Ur MDMA Scrn (Ecstasy) Negative (Negative) U Benzodiazepines Scrn Negative (Negative) Urine Cocaine Screen Negative (Negative) U Marijuana (THC) Screen Negative (Negative) Urine pH Normal (Normal) Urine Specific [place] Normal (Normal) Ethyl Alcohol < 10 ( - 10) mg/dL Ur Creatinine Normal (Normal) SARS-CoV-2 (PCR) (Negative) 02/18/25 Range/Units 15:24 WBC (4.5-11.0) X10^3/uL RBC (4.0-5.2) X10^6/uL Hgb (12.0-16.0) g/dL Hct (36-46) % MCV (80-100) fL MCH (26-34) PG MCHC (30-36) % RDW (11.6-14.8) % Plt Count (150-400) X10^3/uL Neut % (Auto) (50-75) % Lymph % (Auto) (25-40) % [place] % (Auto) (3-14) % Eos % (Auto) (2-4) % Baso % (Auto) (0-2) % Neut # (Auto) (3147-6447) /uL Lymph # (Auto) (6963-2040) /uL [place] # (Auto) (0-900) /uL Eos # (Auto) (0-450) /uL Baso # (Auto) (0-100) /uL Sodium (137-145) mmol/L Potassium (3.4-5.1) mmol/L Chloride (98-107) mmol/L Carbon Dioxide (22-32) mmol/L BUN (7-17) mg/dL Creatinine (0.52-1.04) mg/dL Estimated GFR (>60) mL/min BUN/Creatinine Ratio (6-22) Glucose (70-99) mg/dL Calcium (8.4-10.2) mg/dL Magnesium (1.6-2.3) mg/dL Total Bilirubin (0.2-1.3) mg/dL AST (14-36) IU/L ALT (<35) IU/L Alkaline Phosphatase (38-126) U/L Ammonia (9-30) umol/L Total Creatine Kinase (30-135) U/L Total Protein (6.3-8.2) g/dL Albumin (3.5-5.0) g/dL Globulin (1.7-4.1) g/dL Albumin/Globulin Ratio (1.0-2.8) HCG, Quant mIU/mL Urine RBC (0-5/HPF) Urine WBC (0-5/HPF) Ur Squamous Epith Cells (0-5/HPF) Urine Bacteria (None) Hyaline Casts (None) Granular Casts (None) Urine Mucus (Negative) Ur Culture Indicated? Vol Urine Centrifuged U Opiates 300ng/mL cut (Negative) Ur Oxycodone Screen (Negative) Urine Methadone Screen (Negative) Ur Barbiturates Screen (Negative) U Tricyclic Antidepress (Negative) Ur Phencyclidine Scrn (Negative) Ur Amphetamines Screen (Negative) U Methamphetamines Scrn (Negative) Ur MDMA Scrn (Ecstasy) (Negative) U Benzodiazepines Scrn (Negative) Urine Cocaine Screen (Negative) U Marijuana (THC) Screen (Negative) Urine pH (Normal) Urine Specific [place] (Normal) Ethyl Alcohol ( - 10) mg/dL Ur Creatinine (Normal) SARS-CoV-2 (PCR) Negative (Negative) Urine Dip Bedside Urine Glucose Negative Bedside Urine Bilirubin - Negative Bedside Urine Ketone +++ 80 Urine Specific [place] 1.030 Bedside Urine Occult Blood - Negative Bedside Urine pH 6.0 Bedside Urine Protein ++ 100 Bedside Urine Urobilinogen - Negative Bedside Urine Nitrite - Negative Bedside Urine Leukocytes - Negative Esterase MDM Narrative Medical decision making narrative: Patient is sent here by primary care office prior to arrival. Patient walked to the office this morning. She lives [place] [address]. Patient has not eaten in 17 days she states. She was seen by me here 12 days ago for the same complaint. Patient is going through grieving. Lost significant other recently. Has been drinking 1 beer a day. Does admit to marijuana use. When I saw patient 12 days ago social work was involved. Patient was sent over to behavioral health office and met a counselor and she has been meeting once a week. Patient states she does not like going but she know she needs it. No SI or HI. No auditory or visual hallucinations. She is awake alert oriented x4. She has felt dizzy recently. She knows she has not been eating and drinking enough. After history and exam, CBC CMP magnesium alcohol level normal saline EKG [facility] Medical records reviewed: ER visit here 12 days ago Differential considered: Includes but not limited to depression anxiety grieving Lab Test results independently reviewed as above. Pertinent findings: WBC 6.0 hemoglobin 15.7 sodium 139 potassium 3.4 bicarb 14 BUN 11 creatinine 0.73 GFR greater than 60 glucose 104 AST 30 ALT 18 total protein 8.1 albumin 4.6 globulin 3.5, drug screen negative. COVID negative Independently reviewed EKG sinus tachycardia rate 105 Imaging studies independently reviewed: None indicated at this time Consultations: 1:30 p.m.. Spoke with hospitalist, Dr. Salas, he has reviewed patient's chart and laboratory studies with me. There is no admission criteria for patient. Patient electrolytes are reassuring and does not have any restrictions at this time for restarting diet. pull worker, Sylvia, has spoken with patient as well as with primary care provider that sent patient here. 3:05 p.m.. Patrizia dietitian has completed evaluation and recommendations to patient however she does not feel the patient is going to comply with protein supplements and drinks. Milka Reis, nurse and social media assistant Sylvia RN conference with and Patrizia. We have decided to pursue DCR Re-evaluations: 3:00 p.m.. Dietitian has been with patient Discussion: Diagnosis: Depression 6:[address] Auguste: Sign out to Dr Rai, ANJELICA is here to evaluate patient. Dr. Rai: Try of DCR evaluated the patient, patient is stating that she would like to go to [facility] reviewing patient will remain in the emergency department for possible transfer for inpatient psychiatric care 0030: I was informed by nursing that patient was evaluated by [facility], they state that they feel uncomfortable taking the patient if she has not eaten, they state that they would like the patient to eat tonight and to reach back out in the morning, due to possible need for IV fluids/medical treatment, we will start calling around other facilities for placement 0700: Patient was signed out to Dr. Hayward, no overnight events, patient to be reevaluated by [facility] for possible transfer as well as awaiting call back from [facility]. <Reza Hayward MD - Last Filed: 02/19/25 21:42> Lab Data Labs: Lab Results 02/18/25 02/18/25 02/18/25 Range/Units 12:00 12:37 13:20 WBC 6.0 (4.5-11.0) X10^3/uL RBC 5.09 (4.0-5.2) X10^6/uL Hgb 15.7 (12.0-16.0) g/dL Hct 45.1 (36-46) % MCV 88.6 (80-100) fL MCH 30.9 (26-34) PG MCHC 34.8 (30-36) % RDW 17.1 H (11.6-14.8) % Plt Count 133 L (150-400) X10^3/uL Neut % (Auto) 78.2 H (50-75) % Lymph % (Auto) 12.0 L (25-40) % [place] % (Auto) 7.7 (3-14) % Eos % (Auto) 1.5 L (2-4) % Baso % (Auto) 0.6 (0-2) % Neut # (Auto) 4700 (4243-2045) /uL Lymph # (Auto) 700 L (7857-5612) /uL [place] # (Auto) 500 (0-900) /uL Eos # (Auto) 100 (0-450) /uL Baso # (Auto) 0 (0-100) /uL Sodium 139 (137-145) mmol/L Potassium 3.4 (3.4-5.1) mmol/L Chloride 106 (98-107) mmol/L Carbon Dioxide 14 L (22-32) mmol/L BUN 11 (7-17) mg/dL Creatinine 0.73 (0.52-1.04) mg/dL Estimated GFR > 60 (>60) mL/min BUN/Creatinine Ratio 15.1 (6-22) Glucose 104 H (70-99) mg/dL Calcium 9.6 (8.4-10.2) mg/dL Magnesium 1.8 (1.6-2.3) mg/dL Total Bilirubin 1.7 H (0.2-1.3) mg/dL AST 30 (14-36) IU/L ALT 18 (<35) IU/L Alkaline Phosphatase 86 (38-126) U/L Ammonia < 9 L (9-30) umol/L Total Creatine Kinase 20 L (30-135) U/L Total Protein 8.1 (6.3-8.2) g/dL Albumin 4.6 (3.5-5.0) g/dL Globulin 3.5 (1.7-4.1) g/dL Albumin/Globulin Ratio 1.3 (1.0-2.8) HCG, Quant < 2.39 mIU/mL Urine RBC None seen (0-5/HPF) Urine WBC 0-1/hpf (0-5/HPF) Ur Squamous Epith Cells 1-5 /hpf (0-5/HPF) Urine Bacteria Few (2-10) H (None) Hyaline Casts 0-1/lpf (None) Granular Casts 0-1/lpf (None) Urine Mucus 3+ H (Negative) Ur Culture Indicated? Cult not indicated Vol Urine Centrifuged 10ml (spun) U Opiates 300ng/mL cut Negative (Negative) Ur Oxycodone Screen Negative (Negative) Urine Methadone Screen Negative (Negative) Ur Barbiturates Screen Negative (Negative) U Tricyclic Antidepress Negative (Negative) Ur Phencyclidine Scrn Negative (Negative) Ur Amphetamines Screen Negative (Negative) U Methamphetamines Scrn Negative (Negative) Ur MDMA Scrn (Ecstasy) Negative (Negative) U Benzodiazepines Scrn Negative (Negative) Urine Cocaine Screen Negative (Negative) U Marijuana (THC) Screen Negative (Negative) Urine pH Normal (Normal) Urine Specific Cle[place] Normal (Normal) Ethyl Alcohol < 10 ( - 10) mg/dL Ur Creatinine Normal (Normal) SARS-CoV-2 (PCR) (Negative) 02/18/25 Range/Units 15:24 WBC (4.5-11.0) X10^3/uL RBC (4.0-5.2) X10^6/uL Hgb (12.0-16.0) g/dL Hct (36-46) % MCV (80-100) fL MCH (26-34) PG MCHC (30-36) % RDW (11.6-14.8) % Plt Count (150-400) X10^3/uL Neut % (Auto) (50-75) % Lymph % (Auto) (25-40) % Prairie % (Auto) (3-14) % Eos % (Auto) (2-4) % Baso % (Auto) (0-2) % Neut # (Auto) (4619-9657) /uL Lymph # (Auto) (1446-6244) /uL Prairie # (Auto) (0-900) /uL Eos # (Auto) (0-450) /uL Baso # (Auto) (0-100) /uL Sodium (137-145) mmol/L Potassium (3.4-5.1) mmol/L Chloride (98-107) mmol/L Carbon Dioxide (22-32) mmol/L BUN (7-17) mg/dL Creatinine (0.52-1.04) mg/dL Estimated GFR (>60) mL/min BUN/Creatinine Ratio (6-22) Glucose (70-99) mg/dL Calcium (8.4-10.2) mg/dL Magnesium (1.6-2.3) mg/dL Total Bilirubin (0.2-1.3) mg/dL AST (14-36) IU/L ALT (<35) IU/L Alkaline Phosphatase (38-126) U/L Ammonia (9-30) umol/L Total Creatine Kinase (30-135) U/L Total Protein (6.3-8.2) g/dL Albumin (3.5-5.0) g/dL Globulin (1.7-4.1) g/dL Albumin/Globulin Ratio (1.0-2.8) HCG, Quant mIU/mL Urine RBC (0-5/HPF) Urine WBC (0-5/HPF) Ur Squamous Epith Cells (0-5/HPF) Urine Bacteria (None) Hyaline Casts (None) Granular Casts (None) Urine Mucus (Negative) Ur Culture Indicated? Vol Urine Centrifuged U Opiates 300ng/mL cut (Negative) Ur Oxycodone Screen (Negative) Urine Methadone Screen (Negative) Ur Barbiturates Screen (Negative) U Tricyclic Antidepress (Negative) Ur Phencyclidine Scrn (Negative) Ur Amphetamines Screen (Negative) U Methamphetamines Scrn (Negative) Ur MDMA Scrn (Ecstasy) (Negative) U Benzodiazepines Scrn (Negative) Urine Cocaine Screen (Negative) U Marijuana (THC) Screen (Negative) Urine pH (Normal) Urine Specific Cleaton (Normal) Ethyl Alcohol ( - 10) mg/dL Ur Creatinine (Normal) SARS-CoV-2 (PCR) Negative (Negative) Urine Dip Bedside Urine Glucose Negative Bedside Urine Bilirubin - Negative Bedside Urine Ketone +++ 80 Urine Specific Cle[place] 1.030 Bedside Urine Occult Blood - Negative Bedside Urine pH 6.0 Bedside Urine Protein ++ 100 Bedside Urine Urobilinogen - Negative Bedside Urine Nitrite - Negative Bedside Urine Leukocytes - Negative Esterase MDM Narrative Medical decision making narrative: Patient is sent here by primary care office prior to arrival. Patient walked to the office this morning. She lives across [address]. Patient has not eaten in 17 days she states. She was seen by me here 12 days ago for the same complaint. Patient is going through grieving. Lost significant other recently. Has been drinking 1 beer a day. Does admit to marijuana use. When I saw patient 12 days ago social work was involved. Patient was sent over to behavioral health office and met a counselor and she has been meeting once a week. Patient states she does not like going but she know she needs it. No SI or HI. No auditory or visual hallucinations. She is awake alert oriented x4. She has felt dizzy recently. She knows she has not been eating and drinking enough. After history and exam, CBC CMP magnesium alcohol level normal saline EKG MDM Medical records reviewed: ER visit here 12 days ago Differential considered: Includes but not limited to depression anxiety grieving Lab Test results independently reviewed as above. Pertinent findings: WBC 6.0 hemoglobin 15.7 sodium 139 potassium 3.4 bicarb 14 BUN 11 creatinine 0.73 GFR greater than 60 glucose 104 AST 30 ALT 18 total protein 8.1 albumin 4.6 globulin 3.5, drug screen negative. COVID negative Independently reviewed EKG sinus tachycardia rate 105 Imaging studies independently reviewed: None indicated at this time Consultations: 1:30 p.m.. Spoke with hospitalist, Dr. Salas, he has reviewed patient's chart and laboratory studies with me. There is no admission criteria for patient. Patient electrolytes are reassuring and does not have any restrictions at this time for restarting diet. pull worker, Sylvia, has spoken with patient as well as with primary care provider that sent patient here. 3:05 p.m.. zeeshan Acharya has completed evaluation and recommendations to patient however she does not feel the patient is going to comply with protein supplements and drinks. Milka Reis, nurse and social media assistant Sylvia NICKERSON conference with and Patrizia. We have decided to pursue DCR Re-evaluations: 3:00 p.m.. Dietitian has been with patient Discussion: Diagnosis: Depression 6:[address] Auguste: Sign out to Dr Rai, ANJELICA is here to evaluate patient. Dr. Rai: Try of DCR evaluated the patient, patient is stating that she [facility] reviewing patient will remain in the emergency department for possible transfer for inpatient psychiatric care 0030: I was informed by nursing that patient was evaluated by [facility], they state that they feel uncomfortable taking the patient if she has not eaten, they state that they would like the patient to eat tonight and to reach back out in the morning, due to possible need for IV fluids/medical treatment, we will start calling around other facilities for placement 0700: Patient was signed out to Dr. Hayward, no overnight events, patient to be reevaluated by [facility] for possible transfer as well as awaiting call back from [facility]. 0700 - assumed care from Dr. Rai with PO challenge and disposition pending. 0740 - Pt interviewed and examined. Tearful affect but denies SI/HI. Pt hasn't eaten much for 17 days due to anxiety/depression and mild nausea. She was tried on Buproprion on Prozac by her PCP but had adverse reactions. Not currently on antidepressants. Takes Xanax and Ambien as needed for anxiety/insomnia but not regularly. Uses Kratom. Drinks 3-4x/week and last time was a few days ago. She was able to eat a cup of pudding this morning. She is agreeable to Ativan PO for anxiety. Will contact facility and inform them that she has eaten today. Labs overall reassuring with no evidence of dehydration, ketosis or starvation. [facility], Brenda Holder MD accepting provider Discharge Plan Departure Patient Disposition: Xfer Psychiatric Hosp Clinical Impression: Adult failure to thrive Depression Qualifiers: Depression Type: unspecified Qualified Code(s): F32.A - Depression, unspecified Prescriptions: No Action omeprazole 20 mg capsule,delayed release(DR/EC) 20 mg PO DAILY Qty: 90 3RF famotidine 20 mg tablet 20 mg PO BID Qty: 60 3RF alprazolam [Xanax] 0.5 mg tablet 0.5 mg PO DAILY PRN (Reason: anxiety, panic) Qty: 7 2RF naproxen 500 mg tablet 500 mg PO BID Qty: 60 2RF cyclobenzaprine 5 mg tablet 5 mg PO 3XD PRN (Reason: for muscle spasm) Qty: 90 1RF ondansetron 4 mg tablet,disintegrating 4 mg PO Q8H PRN (Reason: for nausea/vomiting) Qty: 30 3RF zolpidem [Ambien] 5 mg tablet 5 mg PO BEDTIME Qty: 30 3RF Rx Instructions: may repeat once if no response in 30-60 minutes Referrals: Milka Powers MD [Primary Care Provider] - Stand Alone Forms: Patient Portal/API/Survey
[2025-02-18] MEDS: SODIUM CHLORIDE 0.9% 1,000 ML 1000 ML IV (12:15)
[2025-02-18 12:20] LABS: Add Manual Diff / Slide Review NO; Basophils Absolute Auto 0 /uL (0-100); Basophils Percent Auto 0.6 % (0-2); Eosinophils Absolute Auto 100 /uL (0-450); Eosinophils Percent Auto 1.5 % (2-4); Hematocrit 45.1 % (36-46); Hemoglobin 15.7 g/dL (12.0-16.0); Lymphocytes Absolute Auto 700 /uL (1100-4500); Mean Corpuscular HGB Conc 34.8 % (30-36); Mean Corpuscular Hemoglobin 30.9 PG (26-34); Mean Corpuscular Volume 88.6 fL (80-100); Monocytes Absolute Auto 500 /uL (0-900); Monocytes Percent Auto 7.7 % (3-14); Neutrophils Absolute Auto 4700 /uL (1500-7000); Neutrophils Percent Auto 78.2 % (50-75); Platelet Count 133 X10^3/uL (150-400); Red Blood Cell Count 5.09 X10^6/uL (4.0-5.2); Red Cell Distribution Width 17.1 % (11.6-14.8)
[2025-02-18 12:25] LABS: Alanine Aminotransferase 18 IU/L (<35); Albumin 4.6 g/dL (3.5-5.0); Albumin Globulin Ratio 1.3 (1.0-2.8); Alkaline Phosphatase 86 U/L (38-126); Aspartate Aminotransferase 30 IU/L (14-36); BUN Creatinine Ratio 15.1 (6-22); Bilirubin Total 1.7 mg/dL (0.2-1.3); Blood Urea Nitrogen 11 mg/dL (7-17); Calcium 9.6 mg/dL (8.4-10.2); Carbon Dioxide 14 mmol/L (22-32); Chloride 106 mmol/L (98-107); Estimated Glomerular Filt Rate > 60 mL/min (>60); Ethanol (ETOH) < 10 mg/dL; Globulin 3.5 g/dL (1.7-4.1); Glucose 104 mg/dL (70-99); HEMOLYSIS < 15 (0-50); Magnesium 1.8 mg/dL (1.6-2.3); Potassium 3.4 mmol/L (3.4-5.1); Sodium 139 mmol/L (137-145); Total Protein 8.1 g/dL (6.3-8.2)
[2025-02-18 13:00] LABS: Ammonia (NH3) < 9 umol/L (9-30)
--- NOTE | 2025-02-18 13:23 | P.CALLCOV_ITS ---
Call Coverage Note Note Date of Patient Contact: 02/18/25 Time of Patient Contact: 13:24 Narrative of Care Provided: 49 F who presents from outpatient primary care with recommendations from that provider for refeeding syndrome. She does report not eating for 17 days, she was tachycardic in PCP office. She has improved after initial IV fluids, is no longer tachycardic, and is ambulating without any neurological complaints at this time. While refeeding syndrome may develop, given normal electrolytes and exam currently she is considered low risk. She does have evidence of a NAGMA on labs, but this appears to be similar to prior results as far back as 02/02. Her potassium is 3.4 , Mg is 1.8. Currently, patient does not meet admission criteria that is copied below as she does not have severe electrolyte abnormalities, depletion of electrolytes of 20% or more or severe symptoms. Recommend reinitation of diet slowly as an outpatient. If any of the symptoms below develop return to the ER. * Severe electrolyte abnormalities requiring inpatient care https://Darberry.Pictorama/ed29/isc/7270617r.htm# ?(36 https://Darberry.FlameStower.TRX Systems/ed29/isc/5305794k.htm# )(41 https://Darberry.FlameStower.TRX Systems/ed29/isc/2540119k.htm# )(47 https://Darberry.FlameStower.TRX Systems/ed29/isc/3622239r.htm# ) * Serum phosphorus, potassium, or magnesium levels decreased by 20% or more within 5 days of initiation or increase in feeding(47 https://Darberry.FlameStower.TRX Systems/ed29/isc/7482439u.htm# ) * Symptoms of severe refeeding syndrome within 5 days of initiation or increase in feeding; examples include: * Neurologic symptoms (eg, tremors, fasciculations, encephalopathy, areflexic paralysis, seizure)(3 https://Darberry.FlameStower.TRX Systems/ed29/ isc/4509601o.htm# )(36 https://Darberry.FlameStower.TRX Systems/ed29/isc/1867630f.htm# )(41 https://Darberry.Pictorama/ed29/isc/4908315x.htm# )(47 https://ClickHomeb.FlameStower.TRX Systems/ed29/isc/2162002o.htm# ) * Cardiac symptoms (eg, arrhythmia, heart failure, conduction defect, hypotension)(3 https://Darberry.FlameStower.com/ed29/isc/1751422c.htm# )( 36 https://ClickHomeb.FlameStower.TRX Systems/ed29/isc/0819524a.htm# )(41 https://ClickHomeb.FlameStower.TRX Systems/ed29/isc/3179950k.htm# )(47 https://Darberry.FlameStower.TRX Systems/ed29/isc/6892039n.htm# ) * Pulmonary symptoms (eg, respiratory failure, dyspnea, pulmonary edema)(3 https://Darberry.FlameStower.TRX Systems/ed29/isc/4235616p.htm# )(36 https://Darberry.FlameStower.TRX Systems/ed29/isc/4529100g.htm# )(41 https://Darberry.FlameStower.TRX Systems/ed29/isc/1141438i.htm# )(47 https://Darberry.FlameStower.TRX Systems/ed29/isc/2374226u.htm# ) * Hematologic abnormalities (eg, hemolysis)(3 https://Darberry.FlameStower.TRX Systems/ed29/isc/4751013u.htm# )(36 https://ClickHomeb.FlameStower.TRX Systems/ed29/isc/0065983z.htm# )(41 https://ClickHomeb.FlameStower.TRX Systems/ed29/isc/3744081h.htm# )(47 https://ClickHomeb.FlameStower.TRX Systems/ed29/isc/3970910m.htm# ) * Rhabdomyolysis(3 https://Darberry.FlameStower.TRX Systems/ed29/isc/9427620s.htm# )(36 https://ClickHomeb.FlameStower.TRX Systems/ed29/isc/7788539n.htm# )(41 https://Darberry.FlameStower.com/ed29/isc/8079406i.htm# )(47 https://Darberry.FlameStower.TRX Systems/ed29/isc/1949091o.htm# ) * Sodium retention with fluid overload(3 https://Darberry.FlameStower.TRX Systems/ed29/isc/5159389e.htm# )(36 https://Darberry.FlameStower.TRX Systems/ed29/isc/9487933f.htm# )(41 https://Darberry.FlameStower.TRX Systems/ed29/isc/7471088a.htm# )(47 https://Darberry.FlameStower.com/ed29/isc/7177648t.htm# ) * Thiamine deficiency with lactic acidosis, Wernicke syndrome, or Korsakoff psychosi
--- NOTE | 2025-02-18 13:23 | PM.CALLCOV.1 ---
Call Coverage Note Note Date of Patient Contact: 02/18/25 Time of Patient Contact: 13:24 Narrative of Care Provided: 49 F who presents from outpatient primary care with recommendations from that provider for refeeding syndrome. She does report not eating for 17 days, she was tachycardic in PCP office. She has improved after initial IV fluids, is no longer tachycardic, and is ambulating without any neurological complaints at this time. While refeeding syndrome may develop, given normal electrolytes and exam currently she is considered low risk. She does have evidence of a NAGMA on labs, but this appears to be similar to prior results as far back as 02/02. Her potassium is 3.4 , Mg is 1.8. Currently, patient does not meet admission criteria that is copied below as she does not have severe electrolyte abnormalities, depletion of electrolytes of 20% or more or severe symptoms. Recommend reinitation of diet slowly as an outpatient. If any of the symptoms below develop return to the ER. Severe electrolyte abnormalities requiring inpatient carehttps://Four Interactive.D square nv/ed29/isc/7397281t.htm#?(36https://Four Interactive.Flypad.Xplornet Communications/ed29/isc/7125909q.htm#)(41https://Four Interactive.D square nv/ed29/isc/9776119r.htm#)(47https://Four Interactive.Flypad.Xplornet Communications/ed29/isc/2921851i.htm#) Serum phosphorus, potassium, or magnesium levels decreased by 20% or more within 5 days of initiation or increase in feeding(47https://Four Interactive.D square nv/ed29/isc/3084122o.htm#) Symptoms of severe refeeding syndrome within 5 days of initiation or increase in feeding; examples include: Neurologic symptoms (eg, tremors, fasciculations, encephalopathy, areflexic paralysis, seizure)(3https://Four Interactive.D square nv/ed29/isc/5543558e.htm#)(36https://Geosign.Xplornet Communications/ed29/isc/9097803w.htm#)(41https://careOpenPortalb.Flypad.Xplornet Communications/ed29/isc/9175861l.htm#)(47https://careOpenPortalb.Flypad.Xplornet Communications/ed29/isc/5802031g.htm# ) Cardiac symptoms (eg, arrhythmia, heart failure, conduction defect, hypotension)(3https://careweb.Flypad.com/ed29/isc/2888602i.htm#)(36https://careOpenPortalb.Flypad.com/ed29/isc/9197637d.htm#)(41https://careOpenPortalb.Flypad.Xplornet Communications/ed29/isc/8857066w.htm#)(47https://Four Interactive.Flypad.Xplornet Communications/ed29/isc/0269460y. htm#) Pulmonary symptoms (eg, respiratory failure, dyspnea, pulmonary edema)(3https://careOpenPortalb.Flypad.Xplornet Communications/ed29/isc/7284116w.htm#)(36https://careOpenPortalb.Flypad.com/ed29/isc/6354201x.htm#)(41https://careOpenPortalb.Flypad.Xplornet Communications/ed29/isc/2636898v.htm#)(47https://careOpenPortalb.Flypad.Xplornet Communications/ed29/isc/8872490p.htm#) Hematologic abnormalities (eg, hemolysis)(3https://careweb.Flypad.Xplornet Communications/ed29/isc/5115443u.htm#)(36https://careOpenPortalb.Flypad.Xplornet Communications/ed29/isc/2956315e.htm#)(41https://careOpenPortalb.Flypad.Xplornet Communications/ed29/isc/4754735z.htm#)(47https://Four Interactive.Flypad.Xplornet Communications/ed29/isc/1314478u.ht m#) Rhabdomyolysis(3https://careOpenPortalb.Flypad.com/ed29/isc/4429827f.htm#)(36https://Skycureb.Flypad.Xplornet Communications/ed29/isc/9581872m.htm#)(41https://Skycureb.Flypad.Xplornet Communications/ed29/isc/8201579o.htm#)(47https://Four Interactive.Flypad.Xplornet Communications/ed29/isc/34140 31t.htm#) Sodium retention with fluid overload(3https://Skycureb.Flypad.Xplornet Communications/ed29/isc/1219304f.htm#)(36https://Four Interactive.Flypad.Xplornet Communications/ed29/isc/5095338n.htm#)(41https://Four Interactive.Flypad.Xplornet Communications/ed29/isc/7535084x.htm#)(47https://Four Interactive.Flypad.Xplornet Communications/ed29/isc/6626136s.htm# ) Thiamine deficiency with lactic acidosis, Wernicke syndrome, or Korsakoff psychosi
[2025-02-18 14:25] LABS: Urine Volume 10mL (spun)
[2025-02-18 14:28] LABS: RBC Urine None Seen (0-5/HPF)
[2025-02-18 14:29] LABS: Bacteria Urine Few (2-10); Culture Indicated Urine Cult Not Indicated; Granular Casts Urine 0-1/LPF; Hyaline Casts Urine 0-1/LPF; Mucus Urine 3+ (Negative); Squamous Epithelial Cell Urine 1-5 /HPF (0-5/HPF); WBC Urine 0-1/HPF (0-5/HPF)
--- NOTE | 2025-02-18 15:15 | PC.NURSE ---
Commercial Lending Relationship Manager Patrizia speaks with patient and updates provider Molina.
--- NOTE | 2025-02-18 15:29 | PC.NURSE ---
This RN and student nurse Romy checks in on patient. Pt has been given Ensure clear and jello by intelligence senior sergeant. Pt does not want food or ensure in her room. She states, I will not eat or drink these here or at home. Pt does have water available and reports taking a few sips. Provider Molina made aware.
[2025-02-18 15:41] LABS: Ur Creatinine Normal (Normal); Ur Specific Gravity Normal (Normal); Urine pH Normal (Normal)
[2025-02-18 15:42] LABS: UR Morphine/Opiate cutoff 300 Negative (Negative); Urine Amphetamines Negative (Negative); Urine Barbiturates Negative (Negative); Urine Benzodiazepines Negative (Negative); Urine Cocaine Negative (Negative); Urine MDMA Negative (Negative); Urine Methadone Negative (Negative); Urine Methamphetamines Negative (Negative); Urine Oxycodone Negative (Negative); Urine Phencyclidine Negative (Negative); Urine Tetrahydrocannabinol Negative (Negative); Urine Tricyclic Antidepressant Negative (Negative)
[2025-02-18 15:50] LABS: COVID19 -Nasal RAPID Negative (Negative)
--- NOTE | 2025-02-18 15:50 | CM.SWNOTE ---
ED ASSEMBLER CRIMPER Assessment ASSEMBLER CRIMPER - Insole Rasper Assessment ASSEMBLER CRIMPER/Insole Rasper Assessment Time Spent with Patient Start date 02/18/25 Visit Start Time 13:00 End date 02/18/25 Visit End Time 13:15 Total time Care Management spent on 20 minutes patient visit-in minutes Mental Health Screening Include Onset, Duration, Intensity Presenting Problem Patient presents to ED due to PCP's concern for patient's malnutrition and grave disability. Patient reports she has not eaten for the last 17 days, only consuming a beer a day, taking kratom and heart burn rx. Patient denies intent to kill self but is aware that she is harming her body. Precipitating Event(s) This is patient's 4th presentation in the last 3 weeks (Patient was seen on , 02/02/25 and 02/06/25) to the ED regarding this concern . Patient was evaluated by DCR on two of these ED presentations, patient has had recent PCP follow up and outpatient MH therapy several appts in recent weeks and continues to intentionally restrict her food intake. Patient's spouse several months ago and patient has been restricting her food intact, engaging in substance use since her spouse's passing . Patient Strengths Patient has PCP and MH therapist with regular appts, both providers indicate significant concern for patient's wellbeing. Current Behavioral Health Provider(s) Patient sees therapist Include Facility, Provider, Ph. # Carlee Thompson, LILLIE at [facility] (Ph.# [phone]), patient started seeing provider on 02/06/25 and has had 2 appointments so far, patient's next scheduled appt is 02/19/25. Patient gave consent for ASSEMBLER CRIMPER to contact provider. Psych. Hx Mental Health and Chemical Patient has hx of Depression, Dependency Anxiety, Grief disorder, eating disorder, PTSD, polysubstance use disorder. Patient endorses that she drinks one 16 ounce beer a day , patient endorses that she takes 4 pills of kratom daily. Patient endorses she used to self medicate with Xanax, ambien and mushroom gummies. Family Hx of Behavioral Abuse Patient lost her spouse to cancer several years ago. Psychiatric Hospitalizations (date(s)/ Patient states she was location) inpatient when she was a child in [place] due to concern for self harm. Psychosocial information & Support Patient is 49 y/o female who Systems resides alone in [place]. Patient denies any local supports. Patient states that she has a sister that lives in [place] but she does not talk to sister about her current struggles. School/Work Patient is unemployed/disabled . Legal Concerns Legal Matters - Outstanding Issues None reported Mental Status Orientation (Person/Place/Time) A/Ox4 Stated Mood So So Affect (Congruent with Mood?) flat, somewhat congruent with mood Thought Content - Specify/Describe Patient denies visual or Obsessions, Delusions, Hallucinations auditory hallucinations. Thought Processes (Omuvscw-Obqbvrml-Qkvo coherent Gmhjuxgk-Qjjscofd-Gxllefqqup- Usbazrsisywlli-Grfosyy-Uunauezbavez- Thought Blocking) Speech (Usllbb-Kdub-Epajnzn-Rapid-Soft- soft/normal Loud-Pressured) Motor (Bpxqbj-Uajfdwmng-Dyiq-Other) normal Insight (Vepc-Glwu-Kgtu/Limited) fair/limited Judgement (Bqbt-Fpyo-Nouu/Limited) fair/limited Impulse Control (Adequate-Impaired) adequate during assessment Memory (Ssvcfwmzj-Sdwztg-Ohjuiy, intact not formally assessed Impaired-Intact) Concentration (Intact-Impaired) intact Attention (Intact-Impaired) intact Behavior (Appropriate-Inappropriate) appropriate Additional Comment patient presents as calm and communicative. Risk Assessment Suicidal Ideation (Plan) No Homicidal Ideation (Plan) No Comment Patient denies current SI and HI. Patient endorses understanding that she is causing harm to her body by not eating, patient endorses understanding that she not making safe choices. Intervention Intervention ASSEMBLER CRIMPER enters room to meet with patient. Patient endorses that she has not eaten in 17 days, patient initially states she is not sure why she is not eating. Patient states that she has restricted her food intake since her spouse . Patient endorses she knows that not eating is causing harm to her body. Patient has been attending PCP appts regularly, her PCP consistently recommends patient present to the ED due to these concerns. Patient just started seeing a therapist 2 weeks ago and therapist indicates concern for patient's continued intentional malnourishment. ASSEMBLER CRIMPER speaks with patient's PCP who endorses continued worry that patient will end her life from the recurring intentional malnutrition. ASSEMBLER CRIMPER consults with DCR who reports recommendation for dispatch if there is concern that patient will not follow up with outpatient recommendations. A Sales Agent Protective Service is consulted to meet with patient, it is reported that patient does not agree to eat or drink nourishment if she goes home. Patient is offered Ensure clear liquids and patient declines. Given that this is patient's fourth presentation to the ED is three weeks for continued and ongoing concerns of grave disability and intentional malnutrition. It is the opinion of this ASSEMBLER CRIMPER that patient would benefit from inpatient hospitalization for crisis stabilization, medication management and stabilization. ASSEMBLER CRIMPER to dispatch DCR as patient is not voluntary for hospitalization. ASSEMBLER CRIMPER reviews this with ED provider Dr. Auguste who indicates agreement and understanding. Plan RA Plan ASSEMBLER CRIMPER to dispatch DCR for further evaluation and determination of [facility] placement criteria. Sylvia Silva, PHARMACY TECHNICIAN INPATIENT
--- NOTE | 2025-02-18 17:24 | DIET.CONS ---
Addendum entered by Patrizia Juan 02/19/25 12:16: Pt now eating some PO intakes and plans to transfer to inpatient . Consider running refeeding labs (Mg, K+, phos, glucose) again now that pt is eating. Spoke to ED doctor and RN Stacey regarding this. Original Note: Dietary Consultation Note Assessment: 49 y F presenting to ED after 17 days of not eating or drinking anything besides 1 beer a day. Consulted for loss of appetite. Spoke to Sylvia ED RECREATION THERAPY AIDES TEACHER before seeing pt. Pt lives alone and has financial resources for food. Pt intentionally not eating. Pt has experienced of recently. Sees a therapist 1x/wk. Met with pt at bedside. Reports no interest in eating food. Fear of eating. When pt discusses severe weight loss she has experienced, considers it a success and calls it cool. Pt reports negative symptoms such as foggy brain and weakness and that they are not cool. Pt not open to the idea of eating any food. Discussed possible drink options with sugar and protein for when pt d/c. Pt would not consume over 200 kcals per day. Pt greatly concerned with calorie intake and her negative symptoms do not appear to be enough for her to consider increasing calories. Reports used to exercise for over 3 hours per day but is unable to do so now in the last few weeks with current symptoms. Pt not open to getting more help. Discussed resources available, pt reports she doesn't like to talk to people, but will continue therapy 1x/wk. Pt reports that since they told her that her labs are okay, then everything must be okay. Weight History: 112.26 kg on 04/23/24 89.98 kg on 12/05/24 82.667 kg on 01/28/24 74.446 kg on 02/10/25 Ht: 177.8 cm Wt: 71.214 kg Labs: RBC 5.09 X10^6/uL (4.0-5.2) 02/18/25 12:00 Hgb 15.7 g/dL (12.0-16.0) 02/18/25 12:00 Hct 45.1 % (36-46) 02/18/25 12:00 Creatinine 0.73 mg/dL (0.52-1.04) 02/18/25 12:00 Nutrition Diagnosis: Severe acute Protein Calorie Malnutrition r/t psychological causes as evidenced by a 14% weight loss within 1 month (severe) and 17 days of no food besides 1 beer (<25% of estimated energy needs per diet recall, severe), pt intentionally not eating and fear of eating Interventions: Discussed the following: -Risks of continued inadequate intakes and inadequate hydration and severe protein calorie malnutrition -Seeking additional help, which pt denies, and provided list of eating disorder treatment programs and dietitians specialized in the area, which pt reports she would not pursue at this time -Planning for what PO intakes could look like to start reintroducing foods if pt discharged, including providing drink option and handout/coupon and where to find drink and providing an Ensure to pt, and refeeding syndrome -Provided [place] counseling to help support pt and put in place a plan to move forward safely with increasing PO intakes -Informed RN and RECREATION THERAPY AIDES TEACHER of conversation and that it is unlikely patient will eat if d/c home d/t fear of eating Overall Impressions: -It does not seem likely patient will intake any food if d/c home. Pt reports she would not do anything more than 200 calories and would not increase those calories. Initially she reports she would try doing 1 Ensure clear or regular Ensure a day, but then later states she would not consume the Ensure at all. Pt more open to drinking sips of plain water, took 1 sip of water during visit. Monitoring/Evaluations: pt in ED, f/u if pt admitted or as consulted Electronically Signed by: Patrizia Juan 02/18/25 17:24 Clinical Diet[address] [address]
--- NOTE | 2025-02-18 17:46 | CM.SWNOTE ---
Addendum entered by Sylvia Silva 02/18/25 19:09: RETAIL FIELD MERCHANDISER calls [facility], it is reported that they have beds. RETAIL FIELD MERCHANDISER faxes clinicals for reivew. BALA Schmid Addendum entered by Sylvia Silva 02/18/25 19:02: ANJELICA Ford meets with patient and determines that patient is now voluntary for treatment. RETAIL FIELD MERCHANDISER and ED to seek voluntary BH placement for patient. BALA Schmid Original Note: ED RETAIL FIELD MERCHANDISER Note RETAIL FIELD MERCHANDISER dispatches DCR, RETAIL FIELD MERCHANDISER gathers declarations/affidavits from patient's PCP and therapist and faxes them along with clinicals and RETAIL FIELD MERCHANDISER assessment for review. RN gathers data of patient's weight loss it is reported that patient was 206 lbs on 09/24/24 and currently 156lbs on 02/18/25, a weight loss of 50lbs from significant calorie restriction in the last 5 months. Logan DEJESUS calls and endorses he is assigned and is en route to meet with patient in ED. RETAIL FIELD MERCHANDISER informs patient of plan of care, awaiting for DCR. Patient's primary concern is not being able to have her phone, not being responsive to friend and sister and fearful that her privacy will be compromised as they will worry if she does not respond. Patient continues to not be voluntary for BH. Plan: awaiting DCR evaluation to determine disposition and plan of care. BALA Schmid
[2025-02-18 21:13] LABS: Creatine Kinase 20 U/L (30-135)
[2025-02-18 21:54] LABS: HCG Quantitative /Beta subunit < 2.39 mIU/mL
--- NOTE | 2025-02-18 22:19 | PC.NURSE ---
[facility] called called and informed staff that patient was declined for admission at this time r/t being too medically acute. Their provider has concerns that patient has not started eating and at this time it is unknown if patient will tolerate PO intake. Their facility is unable to care for patient is she ultimately requires IV therapy and they do not feel comfortable accepting her at this time. They do state that if patient is able to tolerate PO intake overnight without complications then staff may call back tomorrow and patient will be reviewed again for possible admission. [facility] also requested a copy of patient's ECG and serum Mg & HGC results. [facility] provider updated, new orders added and results fax[facility]. Faxed to #[phone]. [facility] main nurses desk to attempt admission tomorrow, call #[phone].
[2025-02-18] MEDS: LORazepam 0.5 MG TABLET PO (22:55)
[2025-02-19] VITALS (9 sets, daily range): BP systolic 93–103; BP diastolic 64–69; PULSE 77–99; RESP 12–18; TEMP 36.5; O2SAT 96–100
[2025-02-19] MEDS: ONDANSETRON 4 MG ODT SL (06:12)
--- NOTE | 2025-02-19 06:14 | PC.NURSE ---
Pt given 240 ml ice water, and 1 vanilla pudding cup at this time.
[2025-02-19] MEDS: LORazepam 0.5 MG TABLET 1 MG PO (07:52)
--- NOTE | 2025-02-19 08:19 | PC.NURSE ---
Assumed care of pt at 0700. Pt ambulated to bathroom independently. Pt denies any dizziness, sob, cp, pain or n/v. Pt given breakfast tray from dietary. Adequate PO intake of eggs, turkey sausage, fruit and 250ml water. Deneis SI/HI at this time. A&Ox4.
--- NOTE | 2025-02-19 08:22 | PC.NURSE ---
Patients breakfast tray was provided at 0815. Patient asked Are you going to have to check how much I eat? I told the patient that when she was through with her tray that I would come in and collect it to remove it from her room. RN aware.
--- NOTE | 2025-02-19 08:42 | PC.NURSE ---
patient ate 75% of breakfast that was provided, this SCRAP METAL COLLECTOR offered the patient coffee and patient stated I am willing to try. coffee provided to patient.
--- NOTE | 2025-02-19 12:07 | PC.NURSE ---
Pt given lunch tray from dietary. A&Ox4. Denies SI/HI at this time. Ambulated to bathroom with steady gait & answers all questions appropriately.
--- NOTE | 2025-02-19 15:45 | CM.SWNOTE ---
ED ELECTRIC FURNACE OPERATOR Note: Reviewed EMR and team rounds for pt?s medical status. Per RN notes, pt has been stable and prepared for transfer at 1600 via [facility]. ED ELECTRIC FURNACE OPERATOR called [facility] and confirmed no other pending paperwork needed. keypuncher Federico asked [facility] RN to call [phone] for report when pt discharges. Plan: Anticipating transfer to [facility] on 02/19 at 1600 for voluntary inpatient treatment. CM Team will continue to follow for coordination of discharge plans. BALA Frazier
== END 2025-02-19 16:22 ==
PROVIDERS: Emergency Medicine; Student in an Organized Health Care Education/Training Program; Emergency Provider Emergency Medicine; PCP Student in an Organized Health Care Education/Training Program
DX: F32.A Depression, unspecified (principal); R62.7 Adult failure to thrive; R11.0 Nausea; R00.0 Tachycardia, unspecified
CPT/HCPCS: 36415; 80053; 80305; 80320; 81003; 81015; 82140; 82550; 83735; 84702; 85025; 87635; 93005; 93010; 96360; 99284

== ENCOUNTER 2025-03-14 08:53 | Emergency (ER) | payer OTHER, SELFPAY ==
[2025-03-14] VITALS (17 sets, daily range): BP systolic 98–124; BP diastolic 66–74; PULSE 75–102; RESP 16–18; TEMP 36.8; O2SAT 97–99; BMI 23.2
--- NOTE | 2025-03-14 10:16 | ED_ITS ---
HPI - Abdominal Pain General Chief Complaint: Abdominal Pain Stated Complaint: hasn't eaten since monday, shaky, hot, sweaty Time Seen by Provider: 03/14/25 10:12 Source: patient Mode of arrival: Ambulatory History of Present Illness HPI narrative: 49-year-old female with history of anorexia, polysubstance use disorder, GERD, here with low abdominal discomfort and constipation for a few days. She reports that she appreciates a hard stool ball but is not able to push any stool out. She took some laxative yesterday and had some loose stool she thinks over flowing around the hard stool in her rectum. She has not been able to urinate, she thinks due to the stool ball but denies dysuria, fever or vomiting. She has not eaten for a few days she says due to her anorexia. She does report some mild nausea without vomiting. Related Data Home Medications Medication Instructions Recorded Confirmed hydroxyzine HCl 10 mg tablet 10 mg PO TID-QID PRN 03/07/25 03/07/25 thiamine HCl (vitamin B1) 100 mg 100 mg PO DAILY 03/07/25 03/07/25 tablet Previous Rx's Medication Instructions Recorded famotidine 20 mg tablet 20 mg PO BID #60 tabs 12/05/24 ondansetron 4 mg disintegrating 4 mg PO Q8H PRN for 12/11/24 tablet nausea/vomiting #30 tabs sertraline 100 mg tablet 100 mg PO DAILY #90 tabs 03/13/25 docusate sodium 100 mg capsule 100 mg PO BID PRN constipation #10 03/14/25 (Colace) caps Allergies Allergy/AdvReac Type Severity Reaction Status Date / Time sulfamethoxazole AdvReac Intermediate Itching Verified 03/07/25 11:20 [From Bactrim] and mild rash on arms and torso trimethoprim [From Bactrim] AdvReac Intermediate Itching Verified 03/07/25 11:20 and mild rash on arms and torso Review of Systems Review of Systems Narrative: Negative except as stated in HPI Patient History Medical History Chondroid syringoma GERD (gastroesophageal reflux disease) Menarche (~1988) 0 PTSD (post-traumatic stress disorder) Depression Anxiety Lumbar spine pain (2010) Chronic back pain (2010) Painful menstrual periods (2015) Ovarian cyst Irregular periods/menstrual cycles (2015) Abnormal Pap smear of cervix (2000) Lee's esophagus (2010) Surgical History Anesthesia History of right knee surgery History of cone biopsy of cervix Family History Mother Diabetes mellitus [place] (myocardial infarction) Emphysema lung Hypertension History of heart disease Hyperlipidemia Father Hypertension Hyperlipidemia History of heart disease Family/Other Breast cancer Social History Smoking Status: Smoker, status unknown Smoking Status: Smoker, status unknown Alcohol type: beer Exam Initial Vital Signs Initial Vital Signs: Vital Signs Pulse Rate 102 H 03/14/25 09:01 Blood Pressure 124/67 03/14/25 09:01 Pulse Oximetry 97 03/14/25 09:01 Constitutional: Well appearing, no acute distress Head: NCAT Cardiovascular: RRR, no murmur or rub Pulmonary: CTA bilaterally, no respiratory distress Abdominal: soft, bowel sounds present, mild discomfort in the suprapubic and left lower quadrant Extremities: No LE edema Skin: warm and dry, no diaphoresis Neurological: Alert and oriented x3 Course Orders Ordered: Discontinued Medications Sodium Biphosphate/Sodium Phosphate (Fleets Enema) 1 each OH NOW ONE Stop: 03/14/25 14:38 Last Admin: 03/14/25 14:47 Dose: 1 each Documented By: EDGAR Vital Signs Vital signs: Vital Signs - 8 hr 03/14/25 11:30 03/14/25 11:30 03/14/25 12:00 Pulse Rate 76 Respiratory Rate Blood Pressure 103/66 101/66 Pulse Oximetry 97 03/14/25 12:00 03/14/25 12:30 03/14/25 12:30 Pulse Rate 76 75 Respiratory Rate Blood Pressure 101/66 Pulse Oximetry 98 97 03/14/25 13:00 03/14/25 13:00 03/14/25 13:30 Pulse Rate 77 Respiratory Rate Blood Pressure 107/69 103/66 Pulse Oximetry 98 03/14/25 13:30 03/14/25 14:18 03/14/25 14:19 Pulse Rate 77 102 H Respiratory Rate Blood Pressure 116/73 Pulse Oximetry 97 97 03/14/25 14:19 03/14/25 14:30 03/14/25 14:30 Pulse Rate 97 H 91 H Respiratory Rate 16 Blood Pressure 113/74 Pulse Oximetry 97 98 MDM - Abdominal Pain Lab Data 03/14/25 10:30 03/14/25 10:18 Labs: Lab Results 03/14/25 03/14/25 03/14/25 Range/Units 10:18 10:30 16:25 WBC 8.3 (4.5-11.0) X10^3/uL RBC 4.21 (4.0-5.2) X10^6/uL Hgb 13.4 (12.0-16.0) g/dL Hct 38.7 (36-46) % MCV 92.0 (80-100) fL MCH 31.8 (26-34) PG MCHC 34.6 (30-36) % RDW 15.6 H (11.6-14.8) % Plt Count 158 (150-400) X10^3/uL Neut % (Auto) 87.1 H (50-75) % Lymph % (Auto) 7.3 L (25-40) % [place] % (Auto) 4.8 (3-14) % Eos % (Auto) 0.5 L (2-4) % Baso % (Auto) 0.3 (0-2) % Neut # (Auto) 7200 H (8830-8864) /uL Lymph # (Auto) 600 L (4555-0452) /uL [place] # (Auto) 400 (0-900) /uL Eos # (Auto) 0 (0-450) /uL Baso # (Auto) 0 (0-100) /uL Sodium 135 L (137-145) mmol/L Potassium 4.6 (3.4-5.1) mmol/L Chloride 102 (98-107) mmol/L Carbon Dioxide 22 (22-32) mmol/L BUN 9 (7-17) mg/dL Creatinine 0.67 (0.52-1.04) mg/dL Estimated GFR > 60 (>60) mL/min BUN/Creatinine Ratio 13.4 (6-22) Glucose 64 L (70-99) mg/dL Calcium 8.5 (8.4-10.2) mg/dL Total Bilirubin 1.3 (0.2-1.3) mg/dL AST 22 (14-36) IU/L ALT 12 (<35) IU/L Alkaline Phosphatase 86 (38-126) U/L Total Protein 6.5 (6.3-8.2) g/dL Albumin 3.6 (3.5-5.0) g/dL Globulin 2.9 (1.7-4.1) g/dL Albumin/Globulin Ratio 1.2 (1.0-2.8) Urine Color [place] Urine Appearance Clear Urine pH 5.5 (4.5-8.0) Ur Specific [place] 1.020 (1.000-1.035) Urine Protein Negative (Negative) Urine Glucose (UA) Negative (Negative) g/dL Urine Ketones 3+ H (NEGATIVE) Urine Occult Blood Negative (Negative) Urine Nitrate Negative (Negative) Urine Bilirubin 1+ H (NEGATIVE) Ur Bilirubin Confirm Negative (Negative) Urine Urobilinogen 0.2 (0.2) E.U./dL Ur Leukocyte Esterase Negative (NEGATIVE) Urine RBC Cancelled Urine WBC Ur Squamous Epith Cells Ur Transition Epith Cell Ur Renal Epithelial Cell Calcium Oxalate Crystal Uric Acid Crystals Triple Phos Crystals Other Crystals Amorphous Sediment Urine Bacteria Hyaline Casts Granular Casts RBC Casts WBC Casts Other Casts Urine Mucus Urine Trichomonas Urine Yeast Urine Sperm Ur Culture Indicated? Micro UA Comment Vol Urine Centrifuged 03/14/25 03/14/25 03/14/25 Range/Units 16:25 16:25 16:25 WBC (4.5-11.0) X10^3/uL RBC (4.0-5.2) X10^6/uL Hgb (12.0-16.0) g/dL Hct (36-46) % MCV (80-100) fL MCH (26-34) PG MCHC (30-36) % RDW (11.6-14.8) % Plt Count (150-400) X10^3/uL Neut % (Auto) (50-75) % Lymph % (Auto) (25-40) % [place] % (Auto) (3-14) % Eos % (Auto) (2-4) % Baso % (Auto) (0-2) % Neut # (Auto) (7774-2710) /uL Lymph # (Auto) (5044-2529) /uL [place] # (Auto) (0-900) /uL Eos # (Auto) (0-450) /uL Baso # (Auto) (0-100) /uL Sodium (137-145) mmol/L Potassium (3.4-5.1) mmol/L Chloride (98-107) mmol/L Carbon Dioxide (22-32) mmol/L BUN (7-17) mg/dL Creatinine (0.52-1.04) mg/dL Estimated GFR (>60) mL/min BUN/Creatinine Ratio (6-22) Glucose (70-99) mg/dL Calcium (8.4-10.2) mg/dL Total Bilirubin (0.2-1.3) mg/dL AST (14-36) IU/L ALT (<35) IU/L Alkaline Phosphatase (38-126) U/L Total Protein (6.3-8.2) g/dL Albumin (3.5-5.0) g/dL Globulin (1.7-4.1) g/dL Albumin/Globulin Ratio (1.0-2.8) Urine Color Urine Appearance Urine pH (4.5-8.0) Ur Specific [place] (1.000-1.035) Urine Protein (Negative) Urine Glucose (UA) (Negative) g/dL Urine Ketones (NEGATIVE) Urine Occult Blood (Negative) Urine Nitrate (Negative) Urine Bilirubin (NEGATIVE) Ur Bilirubin Confirm (Negative) Urine Urobilinogen (0.2) E.U./dL Ur Leukocyte Esterase (NEGATIVE) Urine RBC None seen Urine WBC Cancelled None seen Ur Squamous Epith Cells Cancelled 0-1 /hpf Ur Transition Epith Cell Cancelled Ur Renal Epithelial Cell Cancelled Calcium Oxalate Crystal Cancelled Uric Acid Crystals Cancelled Triple Phos Crystals Cancelled Other Crystals Cancelled Amorphous Sediment Cancelled Urine Bacteria Cancelled Hyaline Casts Granular Casts RBC Casts WBC Casts Other Casts Urine Mucus Urine Trichomonas Urine Yeast Urine Sperm Ur Culture Indicated? Micro UA Comment Vol Urine Centrifuged 03/14/25 03/14/25 03/14/25 Range/Units 16:25 16:25 16:25 WBC (4.5-11.0) X10^3/uL RBC (4.0-5.2) X10^6/uL Hgb (12.0-16.0) g/dL Hct (36-46) % MCV (80-100) fL MCH (26-34) PG MCHC (30-36) % RDW (11.6-14.8) % Plt Count (150-400) X10^3/uL Neut % (Auto) (50-75) % Lymph % (Auto) (25-40) % [place] % (Auto) (3-14) % Eos % (Auto) (2-4) % Baso % (Auto) (0-2) % Neut # (Auto) (8035-9973) /uL Lymph # (Auto) (5168-9221) /uL [place] # (Auto) (0-900) /uL Eos # (Auto) (0-450) /uL Baso # (Auto) (0-100) /uL Sodium (137-145) mmol/L Potassium (3.4-5.1) mmol/L Chloride (98-107) mmol/L Carbon Dioxide (22-32) mmol/L BUN (7-17) mg/dL Creatinine (0.52-1.04) mg/dL Estimated GFR (>60) mL/min BUN/Creatinine Ratio (6-22) Glucose (70-99) mg/dL Calcium (8.4-10.2) mg/dL Total Bilirubin (0.2-1.3) mg/dL AST (14-36) IU/L ALT (<35) IU/L Alkaline Phosphatase (38-126) U/L Total Protein (6.3-8.2) g/dL Albumin (3.5-5.0) g/dL Globulin (1.7-4.1) g/dL Albumin/Globulin Ratio (1.0-2.8) Urine Color Urine Appearance Urine pH (4.5-8.0) Ur Specific [place] (1.000-1.035) Urine Protein (Negative) Urine Glucose (UA) (Negative) g/dL Urine Ketones (NEGATIVE) Urine Occult Blood (Negative) Urine Nitrate (Negative) Urine Bilirubin (NEGATIVE) Ur Bilirubin Confirm (Negative) Urine Urobilinogen (0.2) E.U./dL Ur Leukocyte Esterase (NEGATIVE) Urine RBC Urine WBC Ur Squamous Epith Cells Ur Transition Epith Cell Ur Renal Epithelial Cell Calcium Oxalate Crystal Uric Acid Crystals Triple Phos Crystals Other Crystals Amorphous Sediment Urine Bacteria None seen Hyaline Casts Cancelled Granular Casts Cancelled RBC Casts Cancelled WBC Casts Cancelled Other Casts Cancelled Urine Mucus Cancelled Urine Trichomonas Cancelled Urine Yeast Cancelled Urine Sperm Cancelled Ur Culture Indicated? Cancelled Cult not indicated Micro UA Comment Cancelled Vol Urine Centrifuged Cancelled 10ml (spun) Point of care testing: Urine Dip Bedside Urine Glucose Negative Bedside Urine Bilirubin - Negative Bedside Urine Ketone +++ 80 Urine Specific [place] 1.015 Bedside Urine Occult Blood - Negative Bedside Urine pH 5.5 Bedside Urine Protein +/- 15 Bedside Urine Urobilinogen - Negative Bedside Urine Nitrite - Negative Bedside Urine Leukocytes - Negative Esterase MDM Narrative Medical decision making narrative: Differential diagnoses include fecal impaction, constipation, bowel obstruction, cystitis, diverticulitis, ureteral colic, stercoral colitis. Will obtain CT scan abdomen and pelvis before attempt to disimpact Laboratories today reassuring. No leukocytosis or anemia. Low normal sodium, normal kidney function, normal LFTs bili UA no evidence of infection; +ketones. CT abdomen and pelvis shows moderate colonic stool without obstruction. There is ring enhancing focus in the left ovary likely involuting hemorrhagic cyst. Disimpaction informed by myself at the bedside. There is a hard stool ball noted in the rectal vault, the majority of which I was able to remove. Afterwards patient is able to have several moderate-sized bowel movements. She is noted to have urinary retention here. She is prescribed SSRI and maybe related. Alternatively, retention maybe related to constipation. With straight catheterization greater than 500 cc of urine is obtained. Did offer this patient insertion of Beltrna catheter prior to discharge and urology follow-up. Patient informed regarding hemorrhagic cyst on the ovary. On reassessment she is well-appearing in no acute distress. Abdominal exam is relatively benign. I do not suspect acute ovarian torsion in this patient. Advised follow up with Gynecology or PCP regarding this finding. Throughout patient's stay I did have the chance to speak with her multiple times regarding her anorexia. She describes at least 3 different support systems including her family doctor, counselor and other medical administrative specialist who come to her home on a weekly basis to ?check on me. ? She admits that she has not eaten for 2 days but does not want to speak with director social welfare here. She declines any resources regarding her anorexia diagnoses today. Patient remained stable in the emergency department. No emergent condition identified today that would require admission to the hospital or other acute intervention. She is referred to family Medicine and Urology. Return precuations discussed and provided prior to discharge. Discharge Plan Departure Patient Disposition: Home Clinical Impression: Constipation, Acute urinary retention, Haemorrhagic cyst Instructions: DI for Ovarian Cyst, DI for Constipation Activity Restrictions/Additional Instructions: Please make an appointment with Dr. Joy's office for follow up regarding your urinary retention. In the meantime, leave beltran catheter in place. Hopefully as your constipation improves your urinary retention will resolve. Take Colace as prescribed for constipation and follow up with PCP regarding your constipation. Return to the ED if not able to have a bowel movement and having new symptoms such as fever, vomiting, abdominal pain CT scan did show incidentally a possible hemorrhagic ovarian cyst. These can cause discomfort in the pelvis that should improve over time. You may follow up with your PCP or hospital administrative assistant regarding this issue. They may want to do further testing to confirm diagnosis and ensure resolution. Prescriptions: New docusate sodium [Colace] 100 mg capsule 100 mg PO BID PRN (Reason: constipation) Qty: 10 0RF No Action famotidine 20 mg tablet 20 mg PO BID Qty: 60 3RF hydroxyzine HCl 10 mg tablet 10 mg PO TID-QID PRN thiamine HCl (vitamin B1) 100 mg tablet 100 mg PO DAILY ondansetron 4 mg tablet,disintegrating 4 mg PO Q8H PRN (Reason: for nausea/vomiting) Qty: 30 3RF sertraline 100 mg tablet 100 mg PO DAILY Qty: 90 1RF Referrals: Rufino Vargas DO [Physician] - (acute urinary retention) Milka Powers MD [Primary Care Provider] - Noni Obregon MD [Non-Staff] - (urinary retention) Stand Alone Forms: Patient Portal/API/Survey
--- NOTE | 2025-03-14 10:18 | DI.CT.S_ITS ---
PROCEDURE: CT ABDOMEN PELVIS W CON INDICATIONS: constipation/not able to have BM TECHNIQUE: After the administration of intravenous contrast, axial sections acquired from the lung bases to the pubic symphysis. Coronal and sagittal reformats were performed. For radiation dose reduction, the following was used: automated exposure control, adjustment of mA and/or kV according to patient size. COMPARISON: [facility], , US ABDOMEN LIMITED, 07/01/2024, 7:10. FINDINGS: Image quality: Diagnostic. Lower Chest: No significant findings. ABDOMEN: Liver: No solid mass. Gallbladder: No radiopaque gallstones or wall thickening. Biliary ducts: No biliary dilation. Pancreas: No ductal dilation. Spleen: Size is within normal limits. Adrenal Glands: No adrenal nodules. Kidneys and Ureters: No hydronephrosis. No solid mass. No complex renal cystic lesion which requires follow up. Stomach and Bowel: Normal colonic caliber, without significant wall thickening. Moderate colonic stool although prominent stool in the rectal vault. No proximal obstruction. Peritoneum: No abnormal intraperitoneal fluid. No free air. Ventral Wall: No significant ventral hernia. Abdominal Nodes: No retroperitoneal or mesenteric adenopathy by size criteria. Vessels: Aorta and inferior vena cava are normal in size. PELVIS: Pelvic Organs: 1.8 cm rim enhancing left ovarian focus. Bladder: No bladder wall thickening, accounting for underdistention. Pelvic Nodes: No enlarged lymph nodes. Miscellaneous: No inguinal hernias are seen. Bones: No aggressive osseous abnormality. IMPRESSION: Moderate colonic stool as above without obstruction. Rim enhancing focus in the left ovary likely involuting hemorrhagic cyst. Dictated by: Nicole Ch M.D. on 03/14/2025 at 12:01 Approved by: Nicole Ch M.D. on 03/14/2025 at 12:03
[2025-03-14 10:43] LABS: Add Manual Diff / Slide Review NO; Basophils Absolute Auto 0 /uL (0-100); Basophils Percent Auto 0.3 % (0-2); Eosinophils Absolute Auto 0 /uL (0-450); Eosinophils Percent Auto 0.5 % (2-4); Hematocrit 38.7 % (36-46); Hemoglobin 13.4 g/dL (12.0-16.0); Lymphocytes Absolute Auto 600 /uL (1100-4500); Lymphocytes Percent Auto 7.3 % (25-40); Mean Corpuscular HGB Conc 34.6 % (30-36); Mean Corpuscular Hemoglobin 31.8 PG (26-34); Monocytes Absolute Auto 400 /uL (0-900); Monocytes Percent Auto 4.8 % (3-14); Neutrophils Absolute Auto 7200 /uL (1500-7000); Neutrophils Percent Auto 87.1 % (50-75); Platelet Count 158 X10^3/uL (150-400); Red Blood Cell Count 4.21 X10^6/uL (4.0-5.2); Red Cell Distribution Width 15.6 % (11.6-14.8); White Blood Cell Count 8.3 X10^3/uL (4.5-11.0)
[2025-03-14 11:05] LABS: Alanine Aminotransferase 12 IU/L (<35); Albumin 3.6 g/dL (3.5-5.0); Albumin Globulin Ratio 1.2 (1.0-2.8); Alkaline Phosphatase 86 U/L (38-126); Aspartate Aminotransferase 22 IU/L (14-36); BUN Creatinine Ratio 13.4 (6-22); Bilirubin Total 1.3 mg/dL (0.2-1.3); Blood Urea Nitrogen 9 mg/dL (7-17); Calcium 8.5 mg/dL (8.4-10.2); Carbon Dioxide 22 mmol/L (22-32); Chloride 102 mmol/L (98-107); Estimated Glomerular Filt Rate > 60 mL/min (>60); Globulin 2.9 g/dL (1.7-4.1); Glucose 64 mg/dL (70-99); HEMOLYSIS < 15 (0-50); Potassium 4.6 mmol/L (3.4-5.1); Sodium 135 mmol/L (137-145); Total Protein 6.5 g/dL (6.3-8.2)
[2025-03-14] MEDS: FLEETS ENEMA 1 EACH PR (14:47)
[2025-03-14 16:44] LABS: Appearance Urine UA CLEAR; Bilirubin Urine UA 1+ (NEGATIVE); Glucose Urine UA NEGATIVE (Negative); Ketones Urine UA 3+ (NEGATIVE); Leukocyte Esterase Urine UA NEGATIVE (NEGATIVE); Nitrite Urine UA NEGATIVE (Negative); Occult Blood Urine UA NEGATIVE (Negative); Protein Urine UA NEGATIVE (Negative); Urobilinogen Urine UA 0.2 E.U./dL (0.2)
[2025-03-14 16:45] LABS: Color Urine UA ORANGE; pH Urine UA 5.5 (4.5-8.0)
[2025-03-14 16:48] LABS: Bacteria Urine None Seen; Culture Indicated Urine Cult Not Indicated; Ictotest Urine Negative (Negative); RBC Urine None Seen (0-5/HPF); Squamous Epithelial Cell Urine 0-1 /HPF (0-5/HPF); Urine Volume 10mL (spun); WBC Urine None Seen (0-5/HPF)
== END 2025-03-14 20:00 | disposition home or self-care (01) ==
PROVIDERS: Emergency Provider Student in an Organized Health Care Education/Training Program; PCP Student in an Organized Health Care Education/Training Program
DX: K59.00 Constipation, unspecified (principal); R33.8 Other retention of urine; N83.202 Unspecified ovarian cyst, left side; R11.0 Nausea
CPT/HCPCS: 36415; 51701; 51798; 74177; 80053; 81001; 81003; 85025; 99284; Q9967

== ENCOUNTER → 2025-03-17 08:46 | Outpatient (CLI) | payer OTHER, SELFPAY ==
--- NOTE | 2025-03-17 | PATH_ITS ---
Note [facility] Accession Number: [id number] TESTS RESULT FLAG UNITS REF RANGE LAB Clinician Provided Cytology Information No. of containers..02 Previously Prepared Cytology Slide 35 Unknown Storage/container code(s) Source: [A] 01 RIGHT THYROID NODULE INFERIOR LOBE #1 DIAGNOSIS: [A] 01 RIGHT THYROID NODULE INFERIOR LOBE #1 SUSPICIOUS FOR MALIGNANCY. [place] CATEGORY V. SUSPICIOUS FOR PAPILLARY CARCINOMA. SPECIMEN CONSISTS OF FOLLICULAR CELLS WITH NUCLEAR ENLARGEMENT, NUCLEAR PALLOR WITH GROOVES. INTRANUCLEAR PSEUDOINCLUSIONS ARE NOT SEEN. THIS PATTERN IS SUSPICIOUS FOR PAPILLARY CARCINOMA. As part of routine quality associate, selected slides from this case have been reviewed by Dr. Jazmin Aguirre, who agrees with the interpretation. Pathologist ICD10: 01 R89.6 Signed out by: Effie Phillips DO, Pathologist NPI- [id number] Performed by: Wyatt Barksdale, Tool Maker ([facility]) Gross description: 30 CC, COLORLESS, CLEAR RECIEVED: IN CYTOLYT WITH 6 ALCOHOL FIXED AND 6 QUICK STAINED SLIDES ALSO 1 RNA VIAL WILL ON 06-10-2029.VO /VDU 03/18/2025 1058 Local FLAG LEGEND: L-Low Normal,H-High Normal,LL-Alert Low,HH-Alert High <-Panic Low,>-Panic High,A-Abnormal,AA-Critical Abnormal Performed at: 01 =Z [facility] [address] [facility]– [place], [place] [address] Prince Miller MD, Performed at: [address] [address], [place], [place] [id number] MD Prince Miller MD Phone: [phone]
--- NOTE | 2025-03-17 08:48 | DI.US.S_ITS ---
PROCEDURE: US FINE NEEDLE ASPIRATION INDICATIONS: thyroid nodule TECHNIQUE: The indications, alternatives, benefits, risks, and complications of the procedure were explained to the patient. Written informed consent was obtained and placed in the chart. The thyroid region was examined sonographically and a site was chosen for ultrasound guided percutaneous sampling. The skin was prepared and draped in the usual fashion, and anesthetized with 1% lidocaine infiltrated from the skin down to the thyroid gland. Multiple passes were then performed, with contents emptied into an appropriate pathology specimen container. A bandage was applied to the area of access at completion of the study. COMPARISON: [facility], [place], US THYROID, 02/05/2025, 7:21. FINDINGS: Location of lesion sampled: Right thyroid [place]: 25 gauge hypodermic needles. Number of passes: 6 Medications: 1% lidocaine for local anaesthesia. Complications: None. IMPRESSION: Successful ultrasound-guided thyroid nodule fine needle aspiration, with cytology results pending. Please see chart below for management recommendations based on cytology results. [place] [facility] ReportingRecommendationsNon-diagnostic* Repeat US-guided FNA, with on-site cytology evaluation if possible. * Repeated non-diagnostic nodules without high suspicion US features: close observation vs surgical consult. * Consider surgery if nodule has high suspicion US features, grows >20% in 2 dimensions on followup, or patient has clinical risk factors for malignancy. Benign* If nodule has high suspicion US features: repeat US and FNA within 12 months. * If nodule has low to intermediate suspicion US features: repeat US at 12-24 months. If nodule grows (20% increase in at least 2 dimensions, with minimal increase of 2 mm or >50% change in volume), or development of new suspicious US features, then repeat FNA or continue followup. * If nodule has very low suspicion US features: followup US at >24 months. Atypia of undetermined significance, follicular lesion of undetermined significanceRepeat FNA, molecular testing, followup US, or surgical consult.Follicular neoplasm, suspicious for follicular neoplasmSurgical consult; also consider molecular testing. Suspicious for malignancySurgical consult.MalignantSurgical consult. Approved by: Marcos Kaiser M.D. on 03/17/2025 at 13:06
== END ==
PROVIDERS: PCP Student in an Organized Health Care Education/Training Program; Referring Provider Student in an Organized Health Care Education/Training Program; Visit Provider Student in an Organized Health Care Education/Training Program
DX: E04.1 Nontoxic single thyroid nodule (principal); R93.89 Abnormal findings on diagnostic imaging of other specified body structures
CPT/HCPCS: 10005

== ENCOUNTER → 2025-03-29 08:12 | Outpatient (CLI) | payer OTHER, SELFPAY ==
--- NOTE | 2025-03-29 08:14 | DI.MG.S_ITS ---
MM screening mammo BI: 03/29/2025. BI-RADS: 1 CLINICAL: 49-year old female for bilateral screening mammogram. Tyrer-Cuzick lifetime risk of 11.7%. No personal or first-degree family history of breast cancer. PRIOR EXAMS No prior examinations available. MAMMOGRAPHY TECHNIQUE: 2D and 3D (tomosynthesis) digital mammographic views obtained, with additional images as needed for full coverage. Current study was also evaluated with a Computer Aided Detection (CAD) system. DENSITY C. The breasts are heterogeneously dense, which may obscure small masses. MAMMOGRAPHY FINDINGS Bilateral: No suspicious mass, asymmetry, microcalcification, or other abnormality seen. IMPRESSION: * No evidence of malignancy. RECOMMENDATIONS Bilateral * Annual screening mammography. OVERALL ASSESSMENT CATEGORY BI-RADS-1: Negative. The [employer] recommends annual screening mammography beginning at age 40 for women with average risk of breast cancer. ELECTRONICALLY SIGNED: Ella Shelton M.D. on 03/31/2025 at 02:36:20 PM PT Interpreting Station ID: [id number]
== END ==
LOC: MAMMO 08:13
PROVIDERS: PCP Student in an Organized Health Care Education/Training Program; Referring Provider Student in an Organized Health Care Education/Training Program; Visit Provider Student in an Organized Health Care Education/Training Program
DX: Z12.31 Encounter for screening mammogram for malignant neoplasm of breast (principal); R92.333 Mammographic heterogeneous density, bilateral breasts
CPT/HCPCS: 77063; 77067

== ENCOUNTER → 2025-04-15 12:30 | Outpatient (CLI) | payer OTHER, SELFPAY ==
[2025-04-15 14:50] LABS: Add Manual Diff / Slide Review NO; Hematocrit 39.6 % (36-46); Hemoglobin 13.6 g/dL (12.0-16.0); Lymphocytes Absolute Auto 1300 /uL (1100-4500); Mean Corpuscular HGB Conc 34.4 % (30-36); Mean Corpuscular Hemoglobin 32.2 PG (26-34); Mean Corpuscular Volume 93.5 fL (80-100); Platelet Count 192 X10^3/uL (150-400)
[2025-04-15 15:16] LABS: Alanine Aminotransferase 12 IU/L (<35); Albumin 3.5 g/dL (3.5-5.0); Albumin Globulin Ratio 1.3 (1.0-2.8); Alkaline Phosphatase 72 U/L (38-126); Blood Urea Nitrogen 11 mg/dL (7-17); Calcium 8.6 mg/dL (8.4-10.2); Carbon Dioxide 19 mmol/L (22-32); Chloride 110 mmol/L (98-107); Estimated Glomerular Filt Rate > 60 mL/min (>60); Globulin 2.8 g/dL (1.7-4.1); Glucose 91 mg/dL (70-99); HEMOLYSIS < 15 (0-50); Magnesium 1.9 mg/dL (1.6-2.3); Phosphorous 2.8 mg/dL (2.5-4.5); Potassium 3.9 mmol/L (3.4-5.1); Sodium 138 mmol/L (137-145); Total Protein 6.3 g/dL (6.3-8.2)
== END ==
PROVIDERS: PCP Student in an Organized Health Care Education/Training Program; Referring Provider Student in an Organized Health Care Education/Training Program; Visit Provider Student in an Organized Health Care Education/Training Program
DX: R63.0 Anorexia (principal)
CPT/HCPCS: 36415; 80053; 83735; 84100; 85025

== ENCOUNTER → 2025-06-20 13:39 | Outpatient (CLI) | payer OTHER, SELFPAY ==
[2025-06-20 14:21] LABS: Add Manual Diff / Slide Review NO; Hematocrit 47.3 % (36-46); Hemoglobin 16.3 g/dL (12.0-16.0); Lymphocytes Absolute Auto 1800 /uL (1100-4500); Mean Corpuscular HGB Conc 34.4 % (30-36); Mean Corpuscular Hemoglobin 31.2 PG (26-34); Mean Corpuscular Volume 90.6 fL (80-100); Platelet Count 244 X10^3/uL (150-400)
[2025-06-20 14:39] LABS: HEMOLYSIS < 15 (0-50); Iron 107 ug/dL (37-170)
[2025-06-20 14:40] LABS: Alanine Aminotransferase 13 IU/L (<35); Albumin 4.3 g/dL (3.5-5.0); Albumin Globulin Ratio 1.4 (1.0-2.8); Alkaline Phosphatase 73 U/L (38-126); Blood Urea Nitrogen 6 mg/dL (7-17); Calcium 9.5 mg/dL (8.4-10.2); Carbon Dioxide 24 mmol/L (22-32); Chloride 100 mmol/L (98-107); Estimated Glomerular Filt Rate > 60 mL/min (>60); Globulin 3.1 g/dL (1.7-4.1); Glucose 78 mg/dL (70-99); HEMOLYSIS < 15 (0-50); Potassium 4.1 mmol/L (3.4-5.1); Sodium 137 mmol/L (137-145); Total Protein 7.4 g/dL (6.3-8.2)
[2025-06-20 14:50] LABS: Percent Iron Saturation 30 % (15-50); Total Iron Binding Capacity 358 ug/dL (265-497); Transferrin 303 mg/dL (206-381)
[2025-06-20 15:17] LABS: Ferritin 53 ng/mL (6-137)
== END ==
PROVIDERS: PCP Student in an Organized Health Care Education/Training Program; Referring Provider Student in an Organized Health Care Education/Training Program; Visit Provider Student in an Organized Health Care Education/Training Program
DX: R55 Syncope and collapse (principal); M62.838 Other muscle spasm
CPT/HCPCS: 36415; 80053; 82728; 83540; 83550; 85025

== ENCOUNTER 2025-06-20 18:46 | Emergency (ER) | payer OTHER, SELFPAY ==
[2025-06-20] VITALS (13 sets, daily range): BP systolic 87–133; BP diastolic 55–85; PULSE 62–126; RESP 14–28; TEMP 36.1; O2SAT 94–100; BMI 20.9
--- NOTE | 2025-06-20 19:52 | PC.NURSE ---
pt is in the hallway in a wheelchair. She disconnected herself from the monitor and I went to go reconnect her to the monitor. I noticed that the purse in her lap was full of pill bottles and she told me I just took two more trazodone as well as a couple other pills and now I have a bad taste in my mouth can I get some water? Security was called at 1947 to come and take the purse away so that she can no longer keep taking pills. pt then stated well if I am just gonna sleep then I might as well just got home and do it there peacefully so I can take whatever I want. LIYA Oakley and LIYA Shen aware
--- NOTE | 2025-06-20 19:56 | PC.NURSE ---
pt had her purse open in her lap and it was noted that she had several pill bottles in the purse, pt asked if she needed to take more informed pt she was not to be taking her medication while she was in the ED pt stated I just took 2 more trazodone that is why i needed the water for the bad taste in my mouth, pt's purse was confiscated and security was called. pt's purse was closed in front of her. when security arrived the purse was opened in front of her and the belongings removed and photographed and placed in a labeled bag and locked up in the belongings lock up at the nurses station. charge nurse informed
--- NOTE | 2025-06-20 19:56 | PC.WOUNDPHOT ---
Medications from patients purse that she has taken again while sitting in [facility]. Security and Nurse Hermelinda removed purse and took photo of items patient accessing. Mirtazapine 15 mg, Trazodone 50mg, Zolipem 5 mg, Hydroxyzine 10mg, Sertraline 100mg, Melatonin 3mg. Placed in bag and secured in patient hold are at nursing station.
--- NOTE | 2025-06-20 20:10 | PC.NURSE ---
pt taking pills out of purse
--- NOTE | 2025-06-20 20:25 | EKG_ITS ---
[address] [address] Test Date: 2025-06-20 Pat Name: Shasta Daniels Department: Room: Gender: Female Electronic Scale Tester: MICHEL : 1975 Requested By: Order Number: [id number] Reading MD: Britton Ho Measurements Intervals [place] Rate: 73 P: 63 ME: 146 QRS: 58 QRSD: 80 T: 26 QT: 414 QTc: 456 Interpretive Statements Normal sinus rhythm Possible Left atrial enlargement Electronically Signed On 06-23-2025 16:53:20 PDT by Britton Ho
[2025-06-20] MEDS: SODIUM CHLORIDE 0.9% 1,000 ML 1000 ML IV (21:39)
[2025-06-20 21:44] LABS: Add Manual Diff / Slide Review NO; Hematocrit 41.6 % (36-46); Hemoglobin 14.4 g/dL (12.0-16.0); Lymphocytes Absolute Auto 1400 /uL (1100-4500); Mean Corpuscular HGB Conc 34.6 % (30-36); Mean Corpuscular Hemoglobin 31.1 PG (26-34); Mean Corpuscular Volume 90.1 fL (80-100); Platelet Count 168 X10^3/uL (150-400)
[2025-06-20 21:52] LABS: Lactate (Lactic Acid) 2.4 mmol/L (0.7-2.1)
[2025-06-20 21:53] LABS: Acetaminophen < 10 ug/mL (10-30); Alanine Aminotransferase 12 IU/L (<35); Albumin 3.8 g/dL (3.5-5.0); Albumin Globulin Ratio 1.2 (1.0-2.8); Alkaline Phosphatase 63 U/L (38-126); Blood Urea Nitrogen 3 mg/dL (7-17); Calcium 8.6 mg/dL (8.4-10.2); Carbon Dioxide 21 mmol/L (22-32); Chloride 102 mmol/L (98-107); Estimated Glomerular Filt Rate > 60 mL/min (>60); Ethanol (ETOH) 66 mg/dL (<10); Globulin 3.1 g/dL (1.7-4.1); Glucose 75 mg/dL (70-99); HEMOLYSIS 20 (0-50); Potassium 3.7 mmol/L (3.4-5.1); Salicylate < 1.0 mg/dL (<20); Sodium 135 mmol/L (137-145); Total Protein 6.9 g/dL (6.3-8.2)
[2025-06-20 22:43] LABS: Ur Creatinine Normal (Normal); Ur Specific Gravity Normal (Normal); Urine MDMA Negative (Negative); Urine Methamphetamines Negative (Negative); Urine THC Negative (Negative); Urine Tricyclic Antidepressant Negative (Negative); Urine pH Normal (Normal)
[2025-06-20 23:14] LABS: Reflexed Lactate in 2 Hours Y
--- NOTE | 2025-06-20 23:57 | ED.OVERDOSE ---
HPI - Overdose <Pooja Tolbert, DO - Last Filed: 06/25/25 18:55> General Chief Complaint: Toxicology Problem Stated Complaint: polypharm OD Time Seen by Provider: 06/20/25 20:17 Source: patient and EMS Mode of arrival: Ambulatory Limitations: no limitations History of Present Illness HPI Narrative: 49-year-old female history of anorexia, anxiety, thyroidectomy presents with polypharmacy overdose reported to take hydrocodone, hydroxyzine, trazodone, mirtazapine, Ambien, Xanax and 6 beers reported that she wanted to sleep but then also asked to take some of her medications which he had arrived here as well. Patient did report to nursing her partner earlier. When asked if she was intentionally trying to kill herself she denies it but when asked why she took all these medications she says ?I do not know?. She denies thoughts of harming or wishing to kill herself. Denies any thoughts of harming others. Denies any hallucinations. She had thyroid surgery in April, notes she follows with Dr. Ledesma for primary care. States she does follow up with a counselor. Vapes tobacco, drinks about 3 beers daily. Denies recreational drugs. Related Data Home Medications ?Medication ?Instructions ?Recorded ?Confirmed cyclobenzaprine 5 mg tablet 5 mg PO TID Back pain 05/30/25 05/30/25 levothyroxine 88 mcg tablet 88 mcg PO DAILY Thyroid 05/30/25 05/30/25 naproxen 500 mg tablet 500 mg PO BID Back pain 05/30/25 05/30/25 Previous Rx's ?Medication ?Instructions ?Recorded famotidine 20 mg tablet 20 mg PO BID #60 tabs 12/05/24 ondansetron 4 mg disintegrating 4 mg PO Q8H PRN for 12/11/24 tablet nausea/vomiting #30 tabs sertraline 100 mg tablet 100 mg PO DAILY #90 tabs 03/13/25 hydroxyzine HCl 10 mg tablet 10 mg PO TID-QID PRN anxiety #90 03/27/25 tabs thiamine HCl (vitamin B1) 100 mg 100 mg PO DAILY #90 tabs 03/27/25 tablet melatonin 3 mg tablet 3 mg PO BEDTIME PRN sleep #30 tabs 04/15/25 naloxone 4 mg/actuation nasal 4 mg intranasal Q2M PRN opioid 07/01/25 spray (Narcan) overdose #2 ea naloxone 8 mg/actuation nasal spray 1 spray intranasal Q3M PRN opioid 06/21/25 overdose #2 ea Allergies Allergy/AdvReac Type Severity Reaction Status Date / Time sulfamethoxazole (From AdvReac Intermediate Itching Verified 06/20/25 19:32 Bactrim) and mild rash on arms and torso trimethoprim (From Bactrim) AdvReac Intermediate Itching Verified 06/20/25 19:32 and mild rash on arms and torso Review of Systems <Pooja Tolbert DO - Last Filed: 06/25/25 18:55> Review of Systems ROS Unobtainable: All systems reviewed & are unremarkable except as noted in HPI and below Patient History <Pooja Tolbert DO - Last Filed: 06/25/25 18:55> Medical History Chondroid syringoma GERD (gastroesophageal reflux disease) Menarche (~1988) 0 PTSD (post-traumatic stress disorder) Depression Anxiety Lumbar spine pain (2010) Chronic back pain (2010) Painful menstrual periods (2014) Ovarian cyst Irregular periods/menstrual cycles (2014) Abnormal Pap smear of cervix (1999) Lee's esophagus (2009) Surgical History Anesthesia History of right knee surgery History of cone biopsy of cervix Family History Mother Diabetes mellitus ND (myocardial infarction) Emphysema lung Hypertension History of heart disease Hyperlipidemia Father Hypertension Hyperlipidemia History of heart disease Family/Other Breast cancer Smoking Status: Former smoker tobacco type: cigarettes Alcohol type: beer Exam <Pooja Tolbert DO - Last Filed: 06/25/25 18:55> Narrative Exam Narrative: GENERAL: Alert and oriented x three, female in mild distress HEENT: Head normocephalic, atraumatic, EOMI, pupils reactive, face symmetric, moist mucous membranes NECK: Supple, full range of motion CARDIOVASCULAR: Regular rate and rhythm without murmurs, rubs or gallops. RESPIRATORY: Breath sounds equal bilaterally, no wheezes rales or rhonchi. ABDOMEN: Soft, nontender. Normoactive bowel sounds all 4 quadrants. No guarding or rebound, rigidity, no mass : No CVA tenderness EXTREMITIES: Normal range of motion, no clubbing or edema. Neurovascularly intact NEUROLOGICAL: Cranial nerves II through XII grossly intact. Moving all extremities SKIN: Warm, dry, no petechiae, no rashes or lesions. Initial Vital Signs Initial Vital Signs: Vital Signs Temperature 96.9 F L 06/20/25 18:50 Pulse Rate 99 H 06/20/25 18:50 Respiratory Rate 17 06/20/25 18:50 Blood Pressure 102/73 06/20/25 18:50 Pulse Oximetry 95 06/20/25 18:50 Oxygen Delivery Method Room Air 06/20/25 18:50 <Wolf Schmitz, DO - Last Filed: 06/21/25 23:12> Initial Vital Signs Initial Vital Signs: Vital Signs Temperature 96.9 F L 06/20/25 18:50 Pulse Rate 99 H 06/20/25 18:50 Respiratory Rate 17 06/20/25 18:50 Blood Pressure 102/73 06/20/25 18:50 Pulse Oximetry 95 06/20/25 18:50 Oxygen Delivery Method Room Air 06/20/25 18:50 Course <Pooja oTlbert, DO - Last Filed: 06/25/25 18:55> Orders Ordered: Discontinued Medications Sodium Chloride (Normal Saline 0.9%) 1,000 mls @ 1,000 mls/hr IV BOLUS ONE Stop: 06/20/25 21:16 Last Infusion: 06/21/25 00:09 Dose: Infused Documented By: Admin: 06/20/25 21:39 Dose: 1,000 mls/hr Documented By: SB Vital Signs Vital signs: Vital Signs - 8 hr 06/21/25 01:30 06/21/25 01:30 06/21/25 01:31 Pulse Rate 63 64 Blood Pressure 89/50 L Pulse Oximetry 95 95 06/21/25 01:31 06/21/25 02:00 06/21/25 02:00 Pulse Rate 64 Blood Pressure 92/54 L 83/54 L Pulse Oximetry 94 06/21/25 02:01 06/21/25 02:01 06/21/25 02:02 Pulse Rate 66 64 Blood Pressure 82/50 L Pulse Oximetry 94 97 06/21/25 02:02 06/21/25 02:30 06/21/25 02:30 Pulse Rate 63 Blood Pressure 103/67 83/55 L Pulse Oximetry 94 06/21/25 02:31 06/21/25 02:31 06/21/25 03:00 Pulse Rate 62 68 Blood Pressure 88/58 L Pulse Oximetry 93 93 06/21/25 03:00 06/21/25 03:30 06/21/25 03:30 Pulse Rate 55 L Blood Pressure 95/62 100/58 L Pulse Oximetry 96 06/21/25 04:00 06/21/25 04:00 06/21/25 04:01 Pulse Rate 58 L 60 Blood Pressure 87/55 L Pulse Oximetry 96 96 06/21/25 04:01 06/21/25 04:30 06/21/25 04:30 Pulse Rate 63 Blood Pressure 91/54 L 89/51 L Pulse Oximetry 96 06/21/25 04:31 06/21/25 04:31 06/21/25 05:00 Pulse Rate 60 62 Blood Pressure 89/53 L Pulse Oximetry 96 96 06/21/25 05:00 06/21/25 05:30 06/21/25 05:30 Pulse Rate 61 Blood Pressure 85/55 L 87/57 L Pulse Oximetry 95 06/21/25 06:00 06/21/25 06:00 06/21/25 06:30 Pulse Rate 54 L 58 L Blood Pressure 92/60 Pulse Oximetry 95 95 06/21/25 06:30 06/21/25 07:00 06/21/25 07:00 Pulse Rate 58 L Blood Pressure 85/53 L 92/61 Pulse Oximetry 96 06/21/25 07:30 06/21/25 07:30 Pulse Rate 56 L Blood Pressure 92/54 L Pulse Oximetry 96 <Wolf Schmitz, DO - Last Filed: 06/21/25 23:12> Orders Ordered: Discontinued Medications Sodium Chloride (Normal Saline 0.9%) 1,000 mls @ 1,000 mls/hr IV BOLUS ONE Stop: 06/20/25 21:16 Last Infusion: 06/21/25 00:09 Dose: Infused Documented By: Admin: 06/20/25 21:39 Dose: 1,000 mls/hr Documented By: SB Vital Signs Vital signs: Vital Signs - 8 hr 06/21/25 01:30 06/21/25 01:30 06/21/25 01:31 Pulse Rate 63 64 Blood Pressure 89/50 L Pulse Oximetry 95 95 06/21/25 01:31 06/21/25 02:00 06/21/25 02:00 Pulse Rate 64 Blood Pressure 92/54 L 83/54 L Pulse Oximetry 94 06/21/25 02:01 06/21/25 02:01 06/21/25 02:02 Pulse Rate 66 64 Blood Pressure 82/50 L Pulse Oximetry 94 97 06/21/25 02:02 06/21/25 02:30 06/21/25 02:30 Pulse Rate 63 Blood Pressure 103/67 83/55 L Pulse Oximetry 94 06/21/25 02:31 06/21/25 02:31 06/21/25 03:00 Pulse Rate 62 68 Blood Pressure 88/58 L Pulse Oximetry 93 93 06/21/25 03:00 06/21/25 03:30 06/21/25 03:30 Pulse Rate 55 L Blood Pressure 95/62 100/58 L Pulse Oximetry 96 06/21/25 04:00 06/21/25 04:00 06/21/25 04:01 Pulse Rate 58 L 60 Blood Pressure 87/55 L Pulse Oximetry 96 96 06/21/25 04:01 06/21/25 04:30 06/21/25 04:30 Pulse Rate 63 Blood Pressure 91/54 L 89/51 L Pulse Oximetry 96 06/21/25 04:31 06/21/25 04:31 06/21/25 05:00 Pulse Rate 60 62 Blood Pressure 89/53 L Pulse Oximetry 96 96 06/21/25 05:00 06/21/25 05:30 06/21/25 05:30 Pulse Rate 61 Blood Pressure 85/55 L 87/57 L Pulse Oximetry 95 06/21/25 06:00 06/21/25 06:00 06/21/25 06:30 Pulse Rate 54 L 58 L Blood Pressure 92/60 Pulse Oximetry 95 95 06/21/25 06:30 06/21/25 07:00 06/21/25 07:00 Pulse Rate 58 L Blood Pressure 85/53 L 92/61 Pulse Oximetry 96 06/21/25 07:30 06/21/25 07:30 Pulse Rate 56 L Blood Pressure 92/54 L Pulse Oximetry 96 MDM - Overdose <Pooja Tolbert, DO - Last Filed: 06/25/25 18:55> Lab Data 06/20/25 21:34 06/20/25 21:34 Labs: Lab Results 06/20/25 06/20/25 06/20/25 Range/Units 21:34 22:32 23:39 WBC 6.0 (4.5-11.0) X10^3/uL RBC 4.62 (4.0-5.2) X10^6/uL Hgb 14.4 (12.0-16.0) g/dL Hct 41.6 (36-46) % MCV 90.1 (80-100) fL MCH 31.1 (26-34) PG MCHC 34.6 (30-36) % RDW 14.3 (11.6-14.8) % Plt Count 168 (150-400) X10^3/uL Neut % (Auto) 67.2 (50-75) % Lymph % (Auto) 22.6 L (25-40) % Barry % (Auto) 6.6 (3-14) % Eos % (Auto) 2.7 (2-4) % Baso % (Auto) 0.9 (0-2) % Neut # (Auto) 4000 (6995-5538) /uL Lymph # (Auto) 1400 (3304-2908) /uL Barry # (Auto) 400 (0-900) /uL Eos # (Auto) 200 (0-450) /uL Baso # (Auto) 100 (0-100) /uL Sodium 135 L (137-145) mmol/L Potassium 3.7 (3.4-5.1) mmol/L Chloride 102 (98-107) mmol/L Carbon Dioxide 21 L (22-32) mmol/L BUN 3 L (7-17) mg/dL Creatinine 0.67 (0.52-1.04) mg/dL Estimated GFR > 60 (>60) mL/min BUN/Creatinine Ratio 4.5 L (6-22) Glucose 75 (70-99) mg/dL Lactate 2.4 H 2.4 H (0.7-2.1) mmol/L Calcium 8.6 (8.4-10.2) mg/dL Total Bilirubin 1.0 (0.2-1.3) mg/dL Conjugated Bilirubin 0.0 (0.0-0.3) md/dL Unconjugated Bilirubin 0.5 (0.0-1.1) mg/dL AST 24 (14-36) IU/L ALT 12 (<35) IU/L Alkaline Phosphatase 63 (38-126) U/L Total Protein 6.9 (6.3-8.2) g/dL Albumin 3.8 (3.5-5.0) g/dL Globulin 3.1 (1.7-4.1) g/dL Albumin/Globulin Ratio 1.2 (1.0-2.8) TSH 0.15 L (0.47-4.68) uIU/mL Free T4 1.44 (0.78-2.19) ng/dL Urine Test Negative (Negative) Salicylates < 1.0 (<20) mg/dL U Opiates 300ng/mL cut Negative (Negative) Ur Oxycodone Screen Negative (Negative) Urine Methadone Screen Negative (Negative) Acetaminophen < 10 (10-30) ug/mL Ur Barbiturates Screen Negative (Negative) U Tricyclic Antidepress Negative (Negative) Ur Phencyclidine Scrn Negative (Negative) Ur Amphetamines Screen Negative (Negative) U Methamphetamines Scrn Negative (Negative) Ur MDMA Scrn (Ecstasy) Negative (Negative) U Benzodiazepines Scrn Negative (Negative) Urine Cocaine Screen Negative (Negative) U Marijuana (THC) Screen Negative (Negative) Urine pH Normal (Normal) Urine Specific Ophelia Normal (Normal) Ethyl Alcohol 66 H (<10) mg/dL Ur Creatinine Normal (Normal) ECG Data Attestation: I personally reviewed and interpreted this ECG as follows: Interpretation: Sinus rhythm rate of 73 NM 146 QRS 80 QTC of 456, no acute ST elevation depression noted. Repeat EKG sinus rhythm rate of 67 NM 160, QRS is 78 QTC 439. No acute ST elevation or depression. MDM Narrative Medical decision making narrative: Labs EKG shows sinus rhythm CBC shows normal white count, hemoglobin and platelets, chemistries shows sodium 135 CO2 of 21 BUN 3 glucose 75 lactate is 2.4, LFTs are negative. Tylenol, salicylate are negative ETOH is 66. UDS is negative. Urine preg is negative TSH is 0.15, free T4 is 1.44 Patient received fluids. Spoke with poison control; they are reviewed patient's case, this time we will close it out. They did ask for repeat EKG to make sure QTC was not prolonged itching. On repeat appears to be shorter. Patient is medically cleared. Plan to meet with ELECTRONIC SCANNER OPERATOR at this time. Patient signed out to Dr. Schmitz, while awaiting evaluation with ELECTRONIC SCANNER OPERATOR. Naloxone at Discharge Meets criteria for naloxone at discharge?: Yes <Wolf Schmitz, DO - Last Filed: 06/21/25 23:12> Lab Data Labs: Lab Results 06/20/25 06/20/25 06/20/25 Range/Units 21:34 22:32 23:39 WBC 6.0 (4.5-11.0) X10^3/uL RBC 4.62 (4.0-5.2) X10^6/uL Hgb 14.4 (12.0-16.0) g/dL Hct 41.6 (36-46) % MCV 90.1 (80-100) fL MCH 31.1 (26-34) PG MCHC 34.6 (30-36) % RDW 14.3 (11.6-14.8) % Plt Count 168 (150-400) X10^3/uL Neut % (Auto) 67.2 (50-75) % Lymph % (Auto) 22.6 L (25-40) % Barry % (Auto) 6.6 (3-14) % Eos % (Auto) 2.7 (2-4) % Baso % (Auto) 0.9 (0-2) % Neut # (Auto) 4000 (9434-0051) /uL Lymph # (Auto) 1400 (6339-2423) /uL Barry # (Auto) 400 (0-900) /uL Eos # (Auto) 200 (0-450) /uL Baso # (Auto) 100 (0-100) /uL Sodium 135 L (137-145) mmol/L Potassium 3.7 (3.4-5.1) mmol/L Chloride 102 (98-107) mmol/L Carbon Dioxide 21 L (22-32) mmol/L BUN 3 L (7-17) mg/dL Creatinine 0.67 (0.52-1.04) mg/dL Estimated GFR > 60 (>60) mL/min BUN/Creatinine Ratio 4.5 L (6-22) Glucose 75 (70-99) mg/dL Lactate 2.4 H 2.4 H (0.7-2.1) mmol/L Calcium 8.6 (8.4-10.2) mg/dL Total Bilirubin 1.0 (0.2-1.3) mg/dL Conjugated Bilirubin 0.0 (0.0-0.3) md/dL Unconjugated Bilirubin 0.5 (0.0-1.1) mg/dL AST 24 (14-36) IU/L ALT 12 (<35) IU/L Alkaline Phosphatase 63 (38-126) U/L Total Protein 6.9 (6.3-8.2) g/dL Albumin 3.8 (3.5-5.0) g/dL Globulin 3.1 (1.7-4.1) g/dL Albumin/Globulin Ratio 1.2 (1.0-2.8) TSH 0.15 L (0.47-4.68) uIU/mL Free T4 1.44 (0.78-2.19) ng/dL Urine Test Negative (Negative) Salicylates < 1.0 (<20) mg/dL U Opiates 300ng/mL cut Negative (Negative) Ur Oxycodone Screen Negative (Negative) Urine Methadone Screen Negative (Negative) Acetaminophen < 10 (10-30) ug/mL Ur Barbiturates Screen Negative (Negative) U Tricyclic Antidepress Negative (Negative) Ur Phencyclidine Scrn Negative (Negative) Ur Amphetamines Screen Negative (Negative) U Methamphetamines Scrn Negative (Negative) Ur MDMA Scrn (Ecstasy) Negative (Negative) U Benzodiazepines Scrn Negative (Negative) Urine Cocaine Screen Negative (Negative) U Marijuana (THC) Screen Negative (Negative) Urine pH Normal (Normal) Urine Specific Ophelia Normal (Normal) Ethyl Alcohol 66 H (<10) mg/dL Ur Creatinine Normal (Normal) [facility] Narrative Medical decision making narrative: Labs EKG shows sinus rhythm CBC shows normal white count, hemoglobin and platelets, chemistries shows sodium 135 CO2 of 21 BUN 3 glucose 75 lactate is 2.4, LFTs are negative. Tylenol, salicylate are negative ETOH is 66. UDS is negative. Urine preg is negative TSH is 0.15, free T4 is 1.44 Patient received fluids. Spoke with poison control; they are reviewed patient's case, this time we will close it out. They did ask for repeat EKG to make sure QTC was not prolonged itching. On repeat appears to be shorter. Patient is medically cleared. Plan to meet with ELECTRONIC SCANNER OPERATOR at this time. Patient signed out to Dr. Schmitz, while awaiting evaluation with ELECTRONIC SCANNER OPERATOR. Vital signs, nurse triage note, medication list, previous ER visits, and all imaging studies reviewed. ELECTRONIC SCANNER OPERATOR has seen and evaluated patient no need at this time for further acute intervention inpatient. Will DC home follow up appointment with psychiatrist for counseling on Monday and naloxone rx on d/c Discharge Plan Departure Patient Disposition: Home Clinical Impression: Polysubstance overdose Qualifiers: Encounter type: initial encounter Injury intent: accidental or unintentional Qualified Code(s): T50.901A - Poisoning by unspecified drugs, medicaments and biological substances, accidental (unintentional), initial encounter Instructions: DI for Substance Use Disorder Activity Restrictions/Additional Instructions: Return with new or worsening symptoms. Follow up with appointment on Monday for counseling /psychiatry. Take medication as directed. Prescriptions: New naloxone 8 mg/actuation spray,non-aerosol 1 spray intranasal Q3M PRN (Reason: opioid overdose) Qty: 2 0RF Rx Instructions: spray 1 dose into ONE nostril; alternate nostrils w each dose until help arrives No Action famotidine 20 mg tablet 20 mg PO BID Qty: 60 3RF naloxone [Narcan] 4 mg/actuation spray,non-aerosol 4 mg intranasal Q2M PRN (Reason: opioid overdose) Qty: 2 3RF Rx Instructions: spray 1 dose into ONE nostril; alternate nostrils w each dose until help arrives melatonin 3 mg tablet 3 mg PO BEDTIME PRN (Reason: sleep) Qty: 30 3RF levothyroxine 88 mcg tablet 88 mcg PO DAILY naproxen 500 mg tablet 500 mg PO BID cyclobenzaprine 5 mg tablet 5 mg PO TID ondansetron 4 mg tablet,disintegrating 4 mg PO Q8H PRN (Reason: for nausea/vomiting) Qty: 30 3RF sertraline 100 mg tablet 100 mg PO DAILY Qty: 90 1RF hydroxyzine HCl 10 mg tablet 10 mg PO TID-QID PRN (Reason: anxiety) Qty: 90 3RF thiamine HCl (vitamin B1) 100 mg tablet 100 mg PO DAILY Qty: 90 3RF Referrals: Milka Ledesma MD [Primary Care Provider, Family Practice] Stand Alone Forms: Patient Portal/API
[2025-06-21] VITALS (27 sets, daily range): BP systolic 82–128; BP diastolic 50–75; PULSE 54–103; O2SAT 93–97
[2025-06-21 00:11] LABS: Lactate 2HR (Lactic Acid Rflx) 2.4 mmol/L (0.7-2.1)
[2025-06-21 02:34] LABS: TSH w/ Reflex to FT4 0.15 uIU/mL (0.47-4.68)
[2025-06-21 03:01] LABS: Free T4, Direct Thyroxine 1.44 ng/dL (0.78-2.19)
--- NOTE | 2025-06-21 03:17 | EKG_ITS ---
[address] [address] Test Date: 2025-06-21 Pat Name: Shasta Daniels Department: [facility] Room: Gender: Female [employer] Operator: KYLAH : 1975 Requested By: Order Number: [id number] Reading MD: Britton Ho Measurements Intervals [place] Rate: 67 P: 57 ND: 160 QRS: 48 QRSD: 78 T: 43 QT: 416 QTc: 439 Interpretive Statements Normal sinus rhythm Electronically Signed On 06-23-2025 16:54:41 PDT by Britton Ho
--- NOTE | 2025-06-21 06:49 | PC.NURSE ---
After resting and fluids, pt seems improved from when she arrived. From about 2330 until now pt has been sleeping on her left side and no issues noted. She did get up from bed once to use restroom, at that time urine specimen received. Pt tolerated ambulation from [facility] to restroom in room 13. Pt is currently a high risk and has a 1:1 sitter for her safety. Will continue to monitor pt untill change of shift.
--- NOTE | 2025-06-23 08:28 | CM.SWNOTE ---
Late Entry Social Work Note Saritha Lynn, SALES REP
== END 2025-06-21 09:20 | disposition home or self-care (01) ==
PROVIDERS: Emergency Medicine; Emergency Provider Family Medicine; PCP Student in an Organized Health Care Education/Training Program
DX: T50.901A Poisoning by unspecified drugs, medicaments and biological substances, accidental (unintentional), initial encounter (principal); F17.290 Nicotine dependence, other tobacco product, uncomplicated; R55 Syncope and collapse; M62.838 Other muscle spasm
CPT/HCPCS: 36415; 80053; 80076; 80305; 80320; 80329; 81025; 82728; 83540; 83550; 83605; 84439; 84443; 85025; 93005; 96360; 96361; 99285; G0480

== ENCOUNTER 2025-06-25 21:08 | Emergency (ER) | payer OTHER, SELFPAY ==
[2025-06-25] VITALS (7 sets, daily range): BP systolic 87–96; BP diastolic 52–67; PULSE 84–134; RESP 14–16; TEMP 36.6; O2SAT 95–99; BMI 21.1
--- NOTE | 2025-06-25 21:38 | EKG_ITS ---
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
--- NOTE | 2025-06-25 21:44 | PC.NURSE ---
Patient reports she took two more pills. while waiting for EKG. At this time I took her pills and purse and placed them in a labelled bag in locker. Patient still denies SI and states it's just that I want to sleep.
[2025-06-25 22:05] LABS: UR Morphine/Opiate cutoff 300 Negative (Negative); Ur Specific Gravity Normal (Normal); Urine MDMA Negative (Negative); Urine Methamphetamines Negative (Negative); Urine Tetrahydrocannabinol Negative (Negative)
[2025-06-25 22:06] LABS: Urine Tricyclic Antidepressant Negative (Negative)
[2025-06-25 22:17] LABS: Add Manual Diff / Slide Review NO; Hematocrit 45.1 % (36-46); Hemoglobin 15.2 g/dL (12.0-16.0); Lymphocytes Absolute Auto 1000 /uL (1100-4500); Mean Corpuscular HGB Conc 33.8 % (30-36); Mean Corpuscular Hemoglobin 30.8 PG (26-34); Mean Corpuscular Volume 91.2 fL (80-100); Platelet Count 190 X10^3/uL (150-400)
[2025-06-25] MEDS: SODIUM CHLORIDE 0.9% 1,000 ML 1000 ML IV (22:20)
[2025-06-25 22:26] LABS: Acetaminophen < 10 ug/mL (10-30); Alanine Aminotransferase 13 IU/L (<35); Albumin 3.9 g/dL (3.5-5.0); Albumin Globulin Ratio 1.3 (1.0-2.8); Alkaline Phosphatase 66 U/L (38-126); Blood Urea Nitrogen 5 mg/dL (7-17); Calcium 8.7 mg/dL (8.4-10.2); Carbon Dioxide 18 mmol/L (22-32); Chloride 105 mmol/L (98-107); Estimated Glomerular Filt Rate > 60 mL/min (>60); Ethanol (ETOH) 32 mg/dL (<10); Globulin 2.9 g/dL (1.7-4.1); Glucose 86 mg/dL (70-99); HEMOLYSIS < 15 (0-50); Potassium 3.6 mmol/L (3.4-5.1); Salicylate < 1.0 mg/dL (<20); Sodium 137 mmol/L (137-145); Total Protein 6.8 g/dL (6.3-8.2)
--- NOTE | 2025-06-25 22:28 | PC.NURSE ---
Patient sleeping in recliner chair.
[2025-06-26] VITALS (11 sets, daily range): BP systolic 66–95; BP diastolic 43–66; PULSE 38–83; RESP 16; O2SAT 94–98
[2025-06-26 00:16] LABS: TSH w/ Reflex to FT4 0.18 uIU/mL (0.47-4.68)
--- NOTE | 2025-06-26 00:38 | ED.GENADULT ---
HPI - General Adult General Chief complaint: Toxicology Problem Stated complaint: out of breathe, high hr , confusion Time Seen by Provider: 06/26/25 00:02 Source: patient Mode of arrival: Ambulatory History of Present Illness HPI narrative: 49-year-old female complains of insomnia, not intending to harm herself, through the day today ended up drinking 8 beers and taking 3 melatonin, 1 Zoloft tablet, 1 Vicodin tablet, 2 mirtazapine tablets, 2 Xanax tablets, 2 trazodone tablets, and 3 hydroxyzine tablets, all with intent to try to get to sleep. She had some symptoms of racing heart, and confusion, that seems to be improving. She denies shortness of breath. She denies thoughts of wanting to hurt herself, or intending to hurt others. Related Data Home Medications ?Medication ?Instructions ?Recorded ?Confirmed cyclobenzaprine 5 mg tablet 5 mg PO TID Back pain 05/30/25 05/30/25 levothyroxine 88 mcg tablet 88 mcg PO DAILY Thyroid 05/30/25 05/30/25 naproxen 500 mg tablet 500 mg PO BID Back pain 05/30/25 05/30/25 Previous Rx's ?Medication ?Instructions ?Recorded famotidine 20 mg tablet 20 mg PO BID #60 tabs 12/05/24 ondansetron 4 mg disintegrating 4 mg PO Q8H PRN for 12/11/24 tablet nausea/vomiting #30 tabs sertraline 100 mg tablet 100 mg PO DAILY #90 tabs 03/13/25 hydroxyzine HCl 10 mg tablet 10 mg PO TID-QID PRN anxiety #90 03/27/25 tabs thiamine HCl (vitamin B1) 100 mg 100 mg PO DAILY #90 tabs 03/27/25 tablet melatonin 3 mg tablet 3 mg PO BEDTIME PRN sleep #30 tabs 04/15/25 naloxone 4 mg/actuation nasal 4 mg intranasal Q2M PRN opioid 04/15/25 spray (Narcan) overdose #2 ea naloxone 8 mg/actuation nasal spray 1 spray intranasal Q3M PRN opioid 06/21/25 overdose #2 ea naloxone 4 mg/actuation nasal spray 4 mg intranasal Q2M PRN opioid 06/26/25 overdose #2 ea Allergies Allergy/AdvReac Type Severity Reaction Status Date / Time sulfamethoxazole (From AdvReac Intermediate Itching Verified 06/25/25 21:28 Bactrim) and mild rash on arms and torso trimethoprim (From Bactrim) AdvReac Intermediate Itching Verified 06/25/25 21:28 and mild rash on arms and torso Patient History Medical History Chondroid syringoma GERD (gastroesophageal reflux disease) Menarche (~1988) 0 PTSD (post-traumatic stress disorder) Depression Anxiety Lumbar spine pain (2010) Chronic back pain (2010) Painful menstrual periods (2014) Ovarian cyst Irregular periods/menstrual cycles (2014) Abnormal Pap smear of cervix (1999) Lee's esophagus (2009) Surgical History Anesthesia History of right knee surgery History of cone biopsy of cervix Family History Mother Diabetes mellitus [place] (myocardial infarction) Emphysema lung Hypertension History of heart disease Hyperlipidemia Father Hypertension Hyperlipidemia History of heart disease Family/Other Breast cancer tobacco type: cigarettes Alcohol type: beer Exam Narrative Exam Narrative: GENERAL: Well-developed patient, in mild distress. HEAD: Atraumatic. Normocephalic. EYES: Pupils equal round and reactive. Extraocular motions intact. No scleral icterus. No injection or drainage. ENT: Nose without bleeding, purulent drainage. Throat without erythema, tonsillar hypertrophy or exudate. Airway patent. NECK: Trachea midline. Non tender CARDIOVASCULAR: Fast rate regular rhythm, without obvious murmurs, gallops, or rubs. RESPIRATORY: Clear to auscultation. Breath sounds equal bilaterally. No wheezes, rales, or rhonchi. GASTROINTESTINAL: Abdomen soft, non-tender, nondistended. EXTREMITIES: No edema or joint tenderness. BACK: Nontender without deformity or crepitance. No flank tenderness. NEURO: AOx3. Motor functions grossly nonfocal. SKIN: No rash or erythema of visible areas Initial Vital Signs Initial Vital Signs: Vital Signs Temperature 98 F 06/25/25 21:27 Pulse Rate 134 H 06/25/25 21:27 Respiratory Rate 16 06/25/25 21:27 Blood Pressure 93/63 06/25/25 21:27 Pulse Oximetry 99 06/25/25 21:27 Oxygen Delivery Method Room Air 06/25/25 21:27 Course Orders Ordered: Discontinued Medications Albuterol (Albuterol 2.5 Mg/3 Ml Neb (Adult)) 2.5 mg INH NOW ONE Stop: 06/26/25 00:08 Last Admin: 06/26/25 00:40 Dose: 2.5 mg Documented By: LOBO Sodium Chloride (Normal Saline 0.9%) 500 mls @ 1,000 mls/hr IV BOLUS ONE Stop: 06/25/25 22:40 Last Admin: 06/25/25 22:20 Dose: Not Given Documented By: KULWINDER Sodium Chloride (Normal Saline 0.9%) 500 mls @ 1,000 mls/hr IV BOLUS ONE Stop: 06/25/25 22:42 Last Admin: 06/25/25 22:20 Dose: Not Given Documented By: KULWINDER Sodium Chloride (Normal Saline 0.9%) 500 mls @ 1,000 mls/hr IV BOLUS ONE Stop: 06/25/25 22:44 Last Admin: 06/25/25 22:20 Dose: Not Given Documented By: KULWINDER Sodium Chloride (Normal Saline 0.9%) 1,000 mls @ 1,000 mls/hr IV CONT ONE Stop: 06/25/25 23:18 Last Infusion: 06/26/25 01:14 Dose: Infused Documented By: Admin: 06/25/25 22:20 Dose: 1,000 mls/hr Documented By: KULWINDER Sodium Chloride (Normal Saline 0.9%) 1,000 mls @ 1,000 mls/hr IV BOLUS ONE Stop: 06/26/25 01:48 Last Infusion: 06/26/25 02:31 Dose: Infused Documented By: Admin: 06/26/25 01:36 Dose: 1,000 mls/hr Documented By: JOS Magnesium Sulfate (Magnesium Sulfate) 2 gm in 50 mls @ 150 mls/hr IV NOW ONE Stop: 06/26/25 01:37 Last Infusion: 06/26/25 03:12 Dose: Infused Documented By: JOS Co-signed By: Admin: 06/26/25 02:43 Dose: 150 mls/hr Documented By: Co-signed By: JOS Vital Signs Vital signs: Vital Signs - 8 hr 06/25/25 21:27 06/25/25 21:47 06/25/25 22:28 Temperature 98 F Pulse Rate 134 H 123 H 107 H Respiratory Rate 16 16 14 Blood Pressure 93/63 91/59 L 92/54 L Pulse Oximetry 99 96 96 Oxygen Delivery Method Room Air Room Air Room Air 06/25/25 23:13 06/25/25 23:14 06/25/25 23:14 Temperature Pulse Rate 99 H 93 H Respiratory Rate Blood Pressure 96/67 Pulse Oximetry 98 97 Oxygen Delivery Method 06/25/25 23:30 06/25/25 23:35 06/25/25 23:35 Temperature Pulse Rate 84 88 Respiratory Rate Blood Pressure 87/52 L Pulse Oximetry 95 97 Oxygen Delivery Method 06/26/25 00:00 06/26/25 00:01 06/26/25 00:01 Temperature Pulse Rate 83 82 Respiratory Rate Blood Pressure 66/43 L Pulse Oximetry 96 96 Oxygen Delivery Method 06/26/25 00:07 06/26/25 00:07 06/26/25 00:30 Temperature Pulse Rate 83 Respiratory Rate Blood Pressure 95/61 83/52 L Pulse Oximetry 97 Oxygen Delivery Method 06/26/25 00:30 06/26/25 00:41 06/26/25 01:00 Temperature Pulse Rate 81 81 Respiratory Rate 16 Blood Pressure 85/50 L Pulse Oximetry 96 97 Oxygen Delivery Method Room Air 06/26/25 01:00 06/26/25 01:30 06/26/25 01:30 Temperature Pulse Rate 79 74 Respiratory Rate Blood Pressure 83/50 L Pulse Oximetry 98 95 Oxygen Delivery Method 06/26/25 02:00 06/26/25 02:00 06/26/25 02:30 Temperature Pulse Rate 71 38 L Respiratory Rate Blood Pressure 83/53 L Pulse Oximetry 97 94 Oxygen Delivery Method 06/26/25 02:30 06/26/25 03:00 06/26/25 03:00 Temperature Pulse Rate 78 Respiratory Rate Blood Pressure 82/46 L 93/66 Pulse Oximetry 98 Oxygen Delivery Method Room Air Medical Decision Making Lab Data Lab results reviewed: Yes I reviewed the patient's lab results. Lab results narrative: White blood cell count 7300, hemoglobin 15.2, platelets adequate. Glucose 86. Renal function adequate. Serum CO2 decreased 18, electrolytes unremarkable. Liver functions unremarkable. Ethanol level 32. UDS positive for benzodiazepine otherwise negative. Tylenol level negative. Salicylate level negative. Urine dip negative for infection or blood. 06/25/25 22:05 06/26/25 02:40 Labs: Lab Results 06/25/25 06/25/25 06/26/25 Range/Units 21:50 22:05 02:40 WBC 7.3 (4.5-11.0) X10^3/uL RBC 4.94 (4.0-5.2) X10^6/uL Hgb 15.2 (12.0-16.0) g/dL Hct 45.1 (36-46) % MCV 91.2 (80-100) fL MCH 30.8 (26-34) PG MCHC 33.8 (30-36) % RDW 14.4 (11.6-14.8) % Plt Count 190 (150-400) X10^3/uL Neut % (Auto) 76.8 H (50-75) % Lymph % (Auto) 14.4 L (25-40) % [place] % (Auto) 5.6 (3-14) % Eos % (Auto) 2.4 (2-4) % Baso % (Auto) 0.8 (0-2) % Neut # (Auto) 5600 (4064-9786) /uL Lymph # (Auto) 1000 L (8071-7469) /uL [place] # (Auto) 400 (0-900) /uL Eos # (Auto) 200 (0-450) /uL Baso # (Auto) 100 (0-100) /uL Sodium 137 138 (137-145) mmol/L Potassium 3.6 4.2 (3.4-5.1) mmol/L Chloride 105 111 H (98-107) mmol/L Carbon Dioxide 18 L 24 (22-32) mmol/L BUN 5 L 6 L (7-17) mg/dL Creatinine 0.68 0.57 (0.52-1.04) mg/dL Estimated GFR > 60 > 60 (>60) mL/min BUN/Creatinine Ratio 7.4 10.5 (6-22) Glucose 86 90 (70-99) mg/dL Calcium 8.7 7.7 L (8.4-10.2) mg/dL Total Bilirubin 0.6 (0.2-1.3) mg/dL AST 23 (14-36) IU/L ALT 13 (<35) IU/L Alkaline Phosphatase 66 (38-126) U/L Troponin I < 0.012 < 0.012 (0.01-0.034) ng/mL Total Protein 6.8 (6.3-8.2) g/dL Albumin 3.9 (3.5-5.0) g/dL Globulin 2.9 (1.7-4.1) g/dL Albumin/Globulin Ratio 1.3 (1.0-2.8) TSH 0.18 L (0.47-4.68) uIU/mL Free T4 1.41 (0.78-2.19) ng/dL HCG, Quant < 2.39 mIU/mL Salicylates < 1.0 (<20) mg/dL U Opiates 300ng/mL cut Negative (Negative) Ur Oxycodone Screen Negative (Negative) Urine Methadone Screen Negative (Negative) Acetaminophen < 10 (10-30) ug/mL Ur Barbiturates Screen Negative (Negative) U Tricyclic Antidepress Negative (Negative) Ur Phencyclidine Scrn Negative (Negative) Ur Amphetamines Screen Negative (Negative) U Methamphetamines Scrn Negative (Negative) Ur MDMA Scrn (Ecstasy) Negative (Negative) U Benzodiazepines Scrn Positive H (Negative) Urine Cocaine Screen Negative (Negative) U Marijuana (THC) Screen Negative (Negative) Urine pH Normal (Normal) Urine Specific [place] Normal (Normal) Ethyl Alcohol 32 H (<10) mg/dL Ur Creatinine Normal (Normal) Urine Dip Bedside Urine Glucose Negative Bedside Urine Bilirubin - Negative Bedside Urine Ketone - Negative Urine Specific [place] 1.015 Bedside Urine Occult Blood - Negative Bedside Urine pH 6.0 Bedside Urine Protein - Negative Bedside Urine Urobilinogen - Negative Bedside Urine Nitrite - Negative Bedside Urine Leukocytes - Negative Esterase Point of care testing: Urine Dip Bedside Urine Glucose Negative Bedside Urine Bilirubin - Negative Bedside Urine Ketone - Negative Urine Specific [place] 1.015 Bedside Urine Occult Blood - Negative Bedside Urine pH 6.0 Bedside Urine Protein - Negative Bedside Urine Urobilinogen - Negative Bedside Urine Nitrite - Negative Bedside Urine Leukocytes - Negative Esterase ECG Data Attestation: I personally reviewed and interpreted this ECG as follows: Interpretation: 2138, sinus tachycardia with a rate of 132, no obvious ST segment elevation or depression changes. [place] 120, QRS 76, QTC 574. QTC prolonged. 0256, normal sinus rhythm with rate of 78, no obvious ST segment elevation or depression changes. [place] 168, QRS 82, QTC 458. QTC no longer prolonged. MDM Narrative Medical decision making narrative: 49-year-old female reports history of ongoing insomnia, reports polypharmacy pill medications and alcohol use with intent to help her to go to sleep, not intending to harm herself. Initial heart rate 130s noted. Sinus tachycardia on monitor and on EKG. Labs pending. EKG showed QT prolongation, and sinus tachycardia. IV magnesium given. Lab data: White blood cell count 7300, hemoglobin 15.2, platelets adequate. Glucose 86. Renal function adequate. Serum CO2 decreased 18, electrolytes unremarkable. Liver functions unremarkable. Ethanol level 32. UDS positive for benzodiazepine otherwise negative. Tylenol level negative. Salicylate level negative. Urine dip negative for infection or blood. 0256, repeat EKG shows normal sinus rhythm at 78, QTC 458 now normalized, no longer prolonged. Repeat BNP shows CO2 normalized, electrolytes stable, renal function normal. Heart rate normalized, normal sinus rhythm 80-90. Able to take oral fluid challenge. Ambulatory to the bathroom without symptoms. Patient does not want to stay to social public health social worker, we will follow up with her PCP as planned later this month. No indications at this time for involuntary hold. Discharged home per patient request. Discharge Plan Departure Patient Disposition: Home Clinical Impression: Insomnia, Purposeful non-suicidal drug ingestion Activity Restrictions/Additional Instructions: Ongoing insomnia. Racing heart symptoms after taking alcohol and multiple medications with intent to help herself sleep. You denied thoughts of trying to harm herself. Symptoms seemed to be improved. Serum studies showed low carbon dioxide level mild, IV fluids given, repeat study improved. client services associate consult offered, declined. You have follow up appointment scheduled 07/01/2025 with your regular provider for which you stated you would follow up. Heart rate improved. Repeat blood test results improved. Repeat EKGs showed normalization of QTC interval which was prolonged and possibly due to multiple medications that you took. Metabolism time and IV magnesium was given. Repeat EKG showed normal QTC interval. History of polysubstance abuse in the past. Narcan nasal spray prescribed in the past. New prescription Narcan nasal spray prescribed for use if needed for future potential opiate related overdose. Follow up with your regular provider as planned this month. Return to this/nearest emergency department for any change worsening symptoms or any concerns prior. Prescriptions: New naloxone 4 mg/actuation spray,non-aerosol 4 mg intranasal Q2M PRN (Reason: opioid overdose) Qty: 2 0RF Rx Instructions: spray 1 dose into ONE nostril; alternate nostrils w each dose until help arrives No Action famotidine 20 mg tablet 20 mg PO BID Qty: 60 3RF naloxone [Narcan] 4 mg/actuation spray,non-aerosol 4 mg intranasal Q2M PRN (Reason: opioid overdose) Qty: 2 3RF Rx Instructions: spray 1 dose into ONE nostril; alternate nostrils w each dose until help arrives melatonin 3 mg tablet 3 mg PO BEDTIME PRN (Reason: sleep) Qty: 30 3RF levothyroxine 88 mcg tablet 88 mcg PO DAILY naproxen 500 mg tablet 500 mg PO BID cyclobenzaprine 5 mg tablet 5 mg PO TID ondansetron 4 mg tablet,disintegrating 4 mg PO Q8H PRN (Reason: for nausea/vomiting) Qty: 30 3RF sertraline 100 mg tablet 100 mg PO DAILY Qty: 90 1RF hydroxyzine HCl 10 mg tablet 10 mg PO TID-QID PRN (Reason: anxiety) Qty: 90 3RF thiamine HCl (vitamin B1) 100 mg tablet 100 mg PO DAILY Qty: 90 3RF naloxone 8 mg/actuation spray,non-aerosol 1 spray intranasal Q3M PRN (Reason: opioid overdose) Qty: 2 0RF Rx Instructions: spray 1 dose into ONE nostril; alternate nostrils w each dose until help arrives Referrals: Milka Powers MD [Primary Care Provider, Family Practice] Stand Alone Forms: Patient Portal/API
[2025-06-26] MEDS: ALBUTEROL 2.5 MG/3 ML NEB (ADULT) INH (00:40)
[2025-06-26 00:47] LABS: Free T4, Direct Thyroxine 1.41 ng/dL (0.78-2.19)
--- NOTE | 2025-06-26 01:16 | EKG_ITS ---
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
[2025-06-26] MEDS: SODIUM CHLORIDE 0.9% 1,000 ML 1000 ML IV (01:36)
[2025-06-26 02:09] LABS: Troponin I < 0.012 ng/mL (0.01-0.034)
[2025-06-26 02:14] LABS: HCG Quantitative /Beta subunit < 2.39 mIU/mL
[2025-06-26] MEDS: MAGNESIUM SULFATE 2 GM/50 ML PIGGYBACK IV (02:43)
[2025-06-26 02:59] LABS: Blood Urea Nitrogen 6 mg/dL (7-17); Calcium 7.7 mg/dL (8.4-10.2); Carbon Dioxide 24 mmol/L (22-32); Chloride 111 mmol/L (98-107); Estimated Glomerular Filt Rate > 60 mL/min (>60); Glucose 90 mg/dL (70-99); HEMOLYSIS 33 (0-50); Potassium 4.2 mmol/L (3.4-5.1); Sodium 138 mmol/L (137-145)
[2025-06-26 03:10] LABS: Troponin I < 0.012 ng/mL (0.01-0.034)
--- NOTE | 2025-06-26 03:24 | PC.NURSE ---
Pt allowed to sleep. Ambulated once to bathroom since arrival without issues, steady gait.
--- NOTE | 2025-06-26 03:41 | PC.NURSE ---
pt's belongings returned to her at dc
== END 2025-06-26 03:52 | disposition home or self-care (01) ==
PROVIDERS: Emergency Provider Emergency Medicine; PCP Student in an Organized Health Care Education/Training Program
DX: G47.00 Insomnia, unspecified (principal); T50.902A Poisoning by unspecified drugs, medicaments and biological substances, intentional self-harm, initial encounter
CPT/HCPCS: 36415; 80048; 80053; 80305; 80320; 80329; 81003; 84439; 84443; 84484; 84702; 85025; 93005; 94640; 96361; 96365; 99284; G0480; J3475; J7613

== ENCOUNTER 2025-07-01 14:07 | Emergency (ER) | payer OTHER, SELFPAY ==
[2025-07-01] VITALS (15 sets, daily range): BP systolic 90–120; BP diastolic 59–90; PULSE 76–116; RESP 17–36; TEMP 36.9; O2SAT 95–99; BMI 21.5
--- NOTE | 2025-07-01 15:17 | ED.EXTPRO ---
HPI - Extremity Problem General Chief complaint: Extremity Problem,Nontraumatic Stated complaint: Muscle jerks are getting worse Time Seen by Provider: 07/01/25 14:57 Source: patient Mode of arrival: Ambulatory History of Present Illness HPI Narrative: 49-year-old woman with a history of alcohol use disorder at least 8 alcoholic drinks a night along with occasional recreational narcotic use, hypothyroidism, disordered sleep, depression, anxiety, increasing twitching and myoclonic type jerks. Symptoms have been worsening to the point that on a telemedicine visit she was having so much myoclonic jerking activity that it was suggested she come to the emergency department. Related Data Home Medications ?Medication ?Instructions ?Recorded ?Confirmed cyclobenzaprine 5 mg tablet 5 mg PO TID Back pain 05/30/25 05/30/25 levothyroxine 88 mcg tablet 88 mcg PO DAILY Thyroid 05/30/25 05/30/25 naproxen 500 mg tablet 500 mg PO BID Back pain 05/30/25 05/30/25 Previous Rx's ?Medication ?Instructions ?Recorded famotidine 20 mg tablet 20 mg PO BID #60 tabs 12/05/24 ondansetron 4 mg disintegrating 4 mg PO Q8H PRN for 12/11/24 tablet nausea/vomiting #30 tabs sertraline 100 mg tablet 100 mg PO DAILY #90 tabs 03/13/25 hydroxyzine HCl 10 mg tablet 10 mg PO TID-QID PRN anxiety #90 03/27/25 tabs thiamine HCl (vitamin B1) 100 mg 100 mg PO DAILY #90 tabs 03/27/25 tablet melatonin 3 mg tablet 3 mg PO BEDTIME PRN sleep #30 tabs 04/15/25 naloxone 4 mg/actuation nasal 4 mg intranasal Q2M PRN opioid 04/15/25 spray (Narcan) overdose #2 ea naloxone 8 mg/actuation nasal spray 1 spray intranasal Q3M PRN opioid 06/21/25 overdose #2 ea naloxone 4 mg/actuation nasal spray 4 mg intranasal Q2M PRN opioid 06/26/25 overdose #2 ea chlordiazepoxide HCl 25 mg capsule 25 mg PO TID PRN alcohol 07/01/25 withdrawal, muscle spasm #20 caps Allergies Allergy/AdvReac Type Severity Reaction Status Date / Time sulfamethoxazole (From AdvReac Intermediate Itching Verified 07/01/25 14:18 Bactrim) and mild rash on arms and torso trimethoprim (From Bactrim) AdvReac Intermediate Itching Verified 07/01/25 14:18 and mild rash on arms and torso Review of Systems Review of Systems Narrative: Pertinent positive and negative findings as per HPI Patient History Medical History Chondroid syringoma GERD (gastroesophageal reflux disease) Menarche (~1988) 0 PTSD (post-traumatic stress disorder) Depression Anxiety Lumbar spine pain (2010) Chronic back pain (2010) Painful menstrual periods (2014) Ovarian cyst Irregular periods/menstrual cycles (2014) Abnormal Pap smear of cervix (1999) Lee's esophagus (2009) Surgical History Anesthesia History of right knee surgery History of cone biopsy of cervix Family History Mother Diabetes mellitus RI (myocardial infarction) Emphysema lung Hypertension History of heart disease Hyperlipidemia Father Hypertension Hyperlipidemia History of heart disease Family/Other Breast cancer tobacco type: cigarettes Alcohol type: beer Exam Initial Vital Signs Initial Vital Signs: Vital Signs Temperature 98.5 F 07/01/25 14:17 Pulse Rate 116 H 07/01/25 14:17 Respiratory Rate 17 07/01/25 14:17 Blood Pressure 120/90 07/01/25 14:17 Pulse Oximetry 97 07/01/25 14:17 Oxygen Delivery Method Room Air 07/01/25 14:17 General: Fatigued, significant uncontrolled musculoskeletal movement involving extremities and torso HEENT: Moist mucous membranes, normal sclera with reactive pupils, Respiratory: Lungs are clear to auscultation, no wheezing no rales no rhonchi. Full and symmetrical air movement Cardiac: Regular rate and rhythm no murmurs no bruits Abdomen: Soft, nontender, no rebound or guarding, no flank pain Skin: Warm and dry, no rashes Neurologic: Uncontrolled movements axial and skeletal, she is not hyperreflexic Extremities: No trauma, no lower extremity edema Psych: Cooperative, appropriate insight and affect Course Orders Ordered: ED Orders 07/01/25 15:18 CT head/brain wo con Stat 07/01/25 15:40 Complete Blood Count AUTO DIFF Stat Comprehensive Metabolic Panel Stat Ethanol (ETOH) Stat Magnesium Stat Phosphorous Stat 07/01/25 16:33 MR head/brain wo/w con Stat Discontinued Medications Diazepam (Diazepam 10 Mg/2 Ml Syringe) 5 mg IV NOW ONE Stop: 07/01/25 16:35 Last Admin: 07/01/25 17:07 Dose: 5 mg Documented By: PEDRO Vital Signs Vital signs: Vital Signs - 8 hr 07/01/25 14:17 07/01/25 15:03 07/01/25 15:35 Temperature 98.5 F Pulse Rate 116 H 108 H 103 H Respiratory Rate 17 26 H 28 H Blood Pressure 120/90 Pulse Oximetry 97 96 95 Oxygen Delivery Method Room Air 07/01/25 15:35 07/01/25 16:00 07/01/25 16:00 Temperature Pulse Rate 101 H Respiratory Rate 32 H Blood Pressure 105/73 101/68 Pulse Oximetry 96 Oxygen Delivery Method 07/01/25 16:30 07/01/25 16:30 07/01/25 17:00 Temperature Pulse Rate 88 Respiratory Rate 28 H Blood Pressure 97/63 103/59 L Pulse Oximetry 96 Oxygen Delivery Method 07/01/25 17:00 07/01/25 17:30 07/01/25 17:30 Temperature Pulse Rate 81 83 Respiratory Rate 22 29 H Blood Pressure 102/69 Pulse Oximetry 96 96 Oxygen Delivery Method 07/01/25 18:00 07/01/25 18:00 07/01/25 18:51 Temperature Pulse Rate 82 91 H Respiratory Rate 20 23 Blood Pressure 97/67 Pulse Oximetry 96 99 Oxygen Delivery Method 07/01/25 18:53 07/01/25 18:53 07/01/25 19:00 Temperature Pulse Rate 83 80 Respiratory Rate 29 H 26 H Blood Pressure 94/67 Pulse Oximetry 96 96 Oxygen Delivery Method 07/01/25 19:00 07/01/25 19:30 07/01/25 19:30 Temperature Pulse Rate 81 Respiratory Rate 23 Blood Pressure 91/67 90/64 Pulse Oximetry 97 Oxygen Delivery Method 07/01/25 20:00 07/01/25 20:00 Temperature Pulse Rate 77 Respiratory Rate 24 Blood Pressure 96/66 Pulse Oximetry 95 Oxygen Delivery Method MDM - Extremity (Nontraumatic) Lab Data 07/01/25 15:40 07/01/25 15:40 Labs: Lab Results 07/01/25 Range/Units 15:40 WBC 8.7 (4.5-11.0) X10^3/uL RBC 4.94 (4.0-5.2) X10^6/uL Hgb 15.0 (12.0-16.0) g/dL Hct 44.3 (36-46) % MCV 89.6 (80-100) fL MCH 30.3 (26-34) PG MCHC 33.8 (30-36) % RDW 14.4 (11.6-14.8) % Plt Count 212 (150-400) X10^3/uL Neut % (Auto) 73.8 (50-75) % Lymph % (Auto) 15.6 L (25-40) % [place] % (Auto) 8.0 (3-14) % Eos % (Auto) 1.6 L (2-4) % Baso % (Auto) 1.0 (0-2) % Neut # (Auto) 6400 (1524-5446) /uL Lymph # (Auto) 1400 (3419-0436) /uL [place] # (Auto) 700 (0-900) /uL Eos # (Auto) 100 (0-450) /uL Baso # (Auto) 100 (0-100) /uL Sodium 138 (137-145) mmol/L Potassium 4.2 (3.4-5.1) mmol/L Chloride 107 (98-107) mmol/L Carbon Dioxide 20 L (22-32) mmol/L BUN 8 (7-17) mg/dL Creatinine 0.69 (0.52-1.04) mg/dL Estimated GFR > 60 (>60) mL/min BUN/Creatinine Ratio 11.6 (6-22) Glucose 87 (70-99) mg/dL Calcium 8.8 (8.4-10.2) mg/dL Phosphorus 2.7 (2.5-4.5) mg/dL Magnesium 1.7 (1.6-2.3) mg/dL Total Bilirubin 0.5 (0.2-1.3) mg/dL AST 23 (14-36) IU/L ALT 13 (<35) IU/L Alkaline Phosphatase 65 (38-126) U/L Total Protein 7.1 (6.3-8.2) g/dL Albumin 4.0 (3.5-5.0) g/dL Globulin 3.1 (1.7-4.1) g/dL Albumin/Globulin Ratio 1.3 (1.0-2.8) Ethyl Alcohol < 10 (<10) mg/dL Imaging Data MRI brain: Radiologist's Impression: PROCEDURE: MR HEAD/BRAIN WO/W CON INDICATIONS: increased myoclinc jerking, tremor, ataxia TECHNIQUE: Noncontrast axial T1 spin echo, axial T2 fast spin echo, sagittal and axial FLAIR, coronal T2 fast spin echo, axial gradient echo, axial diffusion and ADC through the brain. After the administration of contrast, axial and coronal and sagittal 3D VIBE or T1 spin echo with fat saturation through the brain. COMPARISON: CT head noncontrast 07/01/2025. FINDINGS: Image quality: Diagnostic. CSF Spaces: Basal cisterns are patent. No extra-axial fluid collections. Ventricles are normal in size and shape. Brain: No midline shift. No intracranial bleeds or masses. No abnormal intracranial enhancement. The brainstem appears normal. Diffusion-weighted images demonstrate no acute infarct. No chronic ischemic insults. Normal intravascular flow voids are present. Skull and face: Calvarial marrow is normal in signal. Orbits appear normal. Sinuses: Sinuses and mastoids appear clear. IMPRESSION: No acute intracranial process. Approved by: Carly Fernandez M.D.,Ph.D. on 07/01/2025 at 19:05 MDM Narrative Medical decision making narrative: CC: Increasing involuntary jerking head, torso, extremities Complicating co-morbidities: Alcohol use disorder, polypharmacy, hypothyroidism, anxiety, depression, alcohol withdrawal symptoms, primary neuromuscular disorder Data collected from: patient Social determinants of health that may influence the patients condition: Alcohol use disorder Medical records reviewed: Primary care note from 05/30 discussing anorexia, ER note from 06/20 discussing polysubstance overdose, from 06/26 discussing insomnia Differential considered: Alcohol withdrawal causing increasing the myoclonus, electrolyte abnormalities, Wernicke's encephalopathy medication side effects intracranial mass, mass effect, hemorrhage Exam documented above, pertinent findings include: Patient has significant axial and peripheral myoclonic uncontrolled movement. Heart lungs and abdomen are otherwise benign. Lab Test results independently reviewed as above. Pertinent findings: CBC is unremarkable Chemistries are reassuring -no significant electrolyte abnormalities normal renal function Alcohol level is undetected Imaging studies independently reviewed: CT scan of the head does not show acute pathology MRI of the brain is unremarkable Treatments: Patient was given IV diazepam to help with myotonic movements as well as concern for alcohol withdrawal. She did seem more comfortable and had less involuntary muscle spasm Re-evaluations: Discussed all findings with the patient. Her myotonic movements particularly torso seemed to be Increasing as her diazepam is wearing off Discussion: 49-year-old woman with increasing neuromuscular abnormalities axial and extremity myotonic movement. Possibilities certainly includes variant of alcohol withdrawal which could explain why symptoms were worse today with an alcohol level of 0. Discuss this with her. She will be discharged home with 25 mg of Librium given prior to discharge and another 25 given to take when she wakes up in the morning. Prescription for further Librium we will be sent to [facility]. At this time there is no evidence of electrolyte abnormality, renal dysfunction, liver abnormalities significant infection, sepsis, masses tumors intracranial bleed or obvious abnormality to brain based on CT and MRI of her brain. Findings reviewed with the patient's strongly recommended avoiding alcohol and following up with her primary care physician. At this time she does not need to be admitted, questions have been answered Discharge Plan Departure Patient Disposition: Home Clinical Impression: Myoclonic jerking, Alcohol use disorder Instructions: DI for Alcohol Use Disorder Activity Restrictions/Additional Instructions: Thank you for coming in today I do not have a full explanation for the muscle jerking that you are having, it does look miserable. Your kidney function, liver function, electrolytes were all reassuringly normal. There was no evidence of infection. We did a CT scan of your brain that shows no bleeding or obvious masses or tumors. We also did an MRI of your brain that does not suggest any additional findings that might explain the movement There is a possibility that this is related to alcohol withdrawal. If that is the case it likely is going to take a week or so being completely free from alcohol before the symptoms began to juju. I have given you a prescription for Librium, this is a muscle relaxer/benzodiazepine that we typically use with alcohol withdrawal. It helps so that you do not feel shaky and do not need to take a drink to help with withdrawal symptoms. You do need to follow up with your primary care physician and if symptoms are not improving we will need follow up appointment with Neurology. This point it is safe for you to go home I have sent you home with an additional 25 mg tablet of the Librium that you can take around 2 or 3 in the morning or 1st thing when you wake up. Additional prescription has been sent to [facility] Prescriptions: New chlordiazepoxide HCl 25 mg capsule 25 mg PO TID PRN (Reason: alcohol withdrawal, muscle spasm) Qty: 20 0RF No Action famotidine 20 mg tablet 20 mg PO BID Qty: 60 3RF naloxone [Narcan] 4 mg/actuation spray,non-aerosol 4 mg intranasal Q2M PRN (Reason: opioid overdose) Qty: 2 3RF Rx Instructions: spray 1 dose into ONE nostril; alternate nostrils w each dose until help arrives melatonin 3 mg tablet 3 mg PO BEDTIME PRN (Reason: sleep) Qty: 30 3RF levothyroxine 88 mcg tablet 88 mcg PO DAILY naproxen 500 mg tablet 500 mg PO BID cyclobenzaprine 5 mg tablet 5 mg PO TID ondansetron 4 mg tablet,disintegrating 4 mg PO Q8H PRN (Reason: for nausea/vomiting) Qty: 30 3RF sertraline 100 mg tablet 100 mg PO DAILY Qty: 90 1RF hydroxyzine HCl 10 mg tablet 10 mg PO TID-QID PRN (Reason: anxiety) Qty: 90 3RF thiamine HCl (vitamin B1) 100 mg tablet 100 mg PO DAILY Qty: 90 3RF naloxone 4 mg/actuation spray,non-aerosol 4 mg intranasal Q2M PRN (Reason: opioid overdose) Qty: 2 0RF Rx Instructions: spray 1 dose into ONE nostril; alternate nostrils w each dose until help arrives naloxone 8 mg/actuation spray,non-aerosol 1 spray intranasal Q3M PRN (Reason: opioid overdose) Qty: 2 0RF Rx Instructions: spray 1 dose into ONE nostril; alternate nostrils w each dose until help arrives Referrals: Milka Powers MD [Primary Care Provider, Family Practice] Stand Alone Forms: Patient Portal/API
--- NOTE | 2025-07-01 15:18 | DI.CT.S_ITS ---
PROCEDURE: CT HEAD/BRAIN WO CON INDICATIONS: increased neurologic symptoms, myoclonic jerking TECHNIQUE: Noncontrast 4.5 mm thick angled axial sections acquired from the foramen magnum to the vertex, with coronal and sagittal reformats. For radiation dose reduction, the following was used: automated exposure control, adjustment of mA and/or kV according to patient size. COMPARISON: None. FINDINGS: Image quality: Diagnostic. CSF spaces: Basal cisterns are patent. No extra-axial fluid collections. Ventricles are normal in size and shape. Brain: No midline shift. No intracranial mass effect or hemorrhage. [place]- white matter interface is normal. Skull and face: Calvarium and visualized facial bones are intact, without suspicious lesions. Sinuses: Visualized sinuses and mastoids are clear. IMPRESSION: No acute intracranial pathology. Approved by: Marcos Kaiser M.D. on 07/01/2025 at 16:02
[2025-07-01 15:48] LABS: Add Manual Diff / Slide Review NO; Hematocrit 44.3 % (36-46); Hemoglobin 15.0 g/dL (12.0-16.0); Lymphocytes Absolute Auto 1400 /uL (1100-4500); Mean Corpuscular HGB Conc 33.8 % (30-36); Mean Corpuscular Hemoglobin 30.3 PG (26-34); Mean Corpuscular Volume 89.6 fL (80-100); Platelet Count 212 X10^3/uL (150-400)
[2025-07-01 16:04] LABS: Alanine Aminotransferase 13 IU/L (<35); Albumin 4.0 g/dL (3.5-5.0); Albumin Globulin Ratio 1.3 (1.0-2.8); Alkaline Phosphatase 65 U/L (38-126); Blood Urea Nitrogen 8 mg/dL (7-17); Calcium 8.8 mg/dL (8.4-10.2); Carbon Dioxide 20 mmol/L (22-32); Chloride 107 mmol/L (98-107); Estimated Glomerular Filt Rate > 60 mL/min (>60); Ethanol (ETOH) < 10 mg/dL (<10); Globulin 3.1 g/dL (1.7-4.1); Glucose 87 mg/dL (70-99); HEMOLYSIS 18 (0-50); Magnesium 1.7 mg/dL (1.6-2.3); Phosphorous 2.7 mg/dL (2.5-4.5); Potassium 4.2 mmol/L (3.4-5.1); Sodium 138 mmol/L (137-145); Total Protein 7.1 g/dL (6.3-8.2)
--- NOTE | 2025-07-01 16:33 | DI.MRI.S_ITS ---
PROCEDURE: MR HEAD/BRAIN WO/W CON INDICATIONS: increased myoclinc jerking, tremor, ataxia TECHNIQUE: Noncontrast axial T1 spin echo, axial T2 fast spin echo, sagittal and axial FLAIR, coronal T2 fast spin echo, axial gradient echo, axial diffusion and ADC through the brain. After the administration of contrast, axial and coronal and sagittal 3D VIBE or T1 spin echo with fat saturation through the brain. COMPARISON: CT head noncontrast 07/01/2025. FINDINGS: Image quality: Diagnostic. CSF Spaces: Basal cisterns are patent. No extra-axial fluid collections. Ventricles are normal in size and shape. Brain: No midline shift. No intracranial bleeds or masses. No abnormal intracranial enhancement. The brainstem appears normal. Diffusion-weighted images demonstrate no acute infarct. No chronic ischemic insults. Normal intravascular flow voids are present. Skull and face: Calvarial marrow is normal in signal. Orbits appear normal. Sinuses: Sinuses and mastoids appear clear. IMPRESSION: No acute intracranial process. Approved by: Carly Fernandez M.D.,Ph.D. on 07/01/2025 at 19:05
--- NOTE | 2025-07-01 16:53 | PC.NURSE ---
Patient reports body muscle spasms and jerks
== END 2025-07-01 21:40 | disposition home or self-care (01) ==
PROVIDERS: Emergency Provider Emergency Medicine; PCP Student in an Organized Health Care Education/Training Program
DX: G25.3 Myoclonus (principal); F10.90 Alcohol use, unspecified, uncomplicated
CPT/HCPCS: 36415; 70450; 70553; 80053; 80320; 83735; 84100; 85025; 96374; 99284; A9579; J3360

== ENCOUNTER → 2025-07-08 10:26 | Outpatient (CLI) | payer OTHER, SELFPAY ==
[2025-07-08 12:04] LABS: Free T4, Direct Thyroxine 1.35 ng/dL (0.78-2.19)
[2025-07-08 12:18] LABS: Thyroid Stimulating Hormone 1.86 uIU/mL (0.47-4.68)
== END ==
PROVIDERS: PCP Student in an Organized Health Care Education/Training Program; Referring Provider Internal Medicine Endocrinology, Diabetes & Metabolism; Visit Provider Internal Medicine Endocrinology, Diabetes & Metabolism
DX: C73 Malignant neoplasm of thyroid gland (principal)
CPT/HCPCS: 36415; 84432; 84439; 84443

== ENCOUNTER 2025-07-10 18:40 | Emergency (ER) | payer OTHER, SELFPAY ==
[2025-07-10] VITALS (11 sets, daily range): BP systolic 92–120; BP diastolic 58–72; PULSE 71–84; RESP 12–23; TEMP 37; O2SAT 97–99; BMI 22.2
--- NOTE | 2025-07-10 19:08 | ED.OVERDOSE ---
HPI - Overdose General Chief Complaint: Toxicology Problem Stated Complaint: Insomnia Time Seen by Provider: 07/10/25 18:51 Source: patient and EMS Mode of arrival: EMS History of Present Illness HPI Narrative: 49-year-old female history of alcohol use disorder, along with occasional recreational and narcotic use, hypothyroidism, sleep disorder, depression, anxiety, brought in via EMS for which she took an unknown number of hydrocodone Xanax along with hydroxyzine trazodone mirtazapine melatonin sertraline Librium and drank 5 beers in the last 10-30 minutes. Patient reports difficulty sleeping but denies suicidal ideation homicidal ideation seeing things or hearing voices. Patient states she started having abdominal pain just a few minutes ago after taking all the medicines but has not had any nausea, vomiting, diarrhea, constipation, rectal bleeding or any urinary complaints. Other than what is stated 14 point review of system is negative. Related Data Home Medications ?Medication ?Instructions ?Recorded ?Confirmed No Known Home Medications 07/08/25 07/08/25 Allergies Allergy/AdvReac Type Severity Reaction Status Date / Time sulfamethoxazole (From AdvReac Intermediate Itching Verified 07/08/25 09:54 Bactrim) and mild rash on arms and torso trimethoprim (From Bactrim) AdvReac Intermediate Itching Verified 07/08/25 09:54 and mild rash on arms and torso Review of Systems Review of Systems ROS Unobtainable: All systems reviewed & are unremarkable except as noted in HPI and below Patient History Medical History Chondroid syringoma GERD (gastroesophageal reflux disease) Menarche (~1988) 0 PTSD (post-traumatic stress disorder) Depression Anxiety Lumbar spine pain (2010) Chronic back pain (2010) Painful menstrual periods (2014) Ovarian cyst Irregular periods/menstrual cycles (2014) Abnormal Pap smear of cervix (1999) Lee's esophagus (2009) Surgical History Anesthesia History of right knee surgery History of cone biopsy of cervix Family History Mother Diabetes mellitus [place] (myocardial infarction) Emphysema lung Hypertension History of heart disease Hyperlipidemia Father Hypertension Hyperlipidemia History of heart disease Family/Other Breast cancer Social History Smoking Status: Current every day smoker Smoking Status: Current every day smoker tobacco type: vaping Alcohol type: beer Exam Narrative Exam Narrative: GENERAL: [49] year old patient appears stated age. Well-developed patient, in mild distress. HEAD: Atraumatic. Normocephalic. EYES: Pupils equal round and reactive. Extraocular motions intact. No scleral icterus. No injection or drainage. ENT: Nose without bleeding, purulent drainage. Throat without erythema, tonsillar hypertrophy or exudate. Airway patent. NECK: Trachea midline. Non tender CARDIOVASCULAR: Regular rate and rhythm without murmurs, gallops, or rubs. RESPIRATORY: Clear to auscultation. Breath sounds equal bilaterally. No wheezes, rales, or rhonchi. GASTROINTESTINAL: Abdomen soft, non-tender, nondistended. EXTREMITIES: No edema or joint tenderness. BACK: Nontender without deformity or crepitance. No flank tenderness. NEURO: AOx3. SKIN: No rash or erythema of visible areas Initial Vital Signs Initial Vital Signs: Vital Signs Temperature 98.6 F 07/10/25 18:50 Pulse Rate 74 07/10/25 18:50 Respiratory Rate 15 07/10/25 18:50 Blood Pressure 102/69 07/10/25 18:50 Pulse Oximetry 98 07/10/25 18:50 Oxygen Delivery Method Room Air 07/10/25 18:50 Course Orders Ordered: ED Orders 07/10/25 19:02 Acetaminophen Stat Complete Blood Count AUTO DIFF Stat Comprehensive Metabolic Panel Stat Ethanol (ETOH) Stat Hepatic (Liver) Panel Stat Lactate (Lactic Acid) Stat Darling Stat Salicylate Stat 07/10/25 19:04 [place] [facility] [place] [facility] 07/10/25 19:15 CT abdomen pelvis w con Stat 07/10/25 19:30 Test Urine Stat Urine Culture Stat Urine Drug Screen, Rapid Stat Urine Microscopic Stat Discontinued Medications Sodium Chloride (Normal Saline 0.9%) 1,000 mls @ 150 mls/hr IV CONT STEPHY Last Admin: 07/10/25 19:22 Dose: Not Given Documented By: RLC Lactated Ringer's (Lactated Ringers) 1,000 mls @ 1,000 mls/hr IV BOLUS ONE Stop: 07/10/25 20:14 Last Infusion: 07/10/25 20:26 Dose: Infused Documented By: Admin: 07/10/25 19:22 Dose: 1,000 mls/hr Documented By: SOFIA Vital Signs Vital signs: Vital Signs - 8 hr 07/10/25 18:50 07/10/25 19:25 07/10/25 19:30 Temperature 98.6 F Pulse Rate 74 74 78 Respiratory Rate 15 22 23 Blood Pressure 102/69 Pulse Oximetry 98 98 Oxygen Delivery Method Room Air 07/10/25 19:31 07/10/25 19:31 07/10/25 20:00 Temperature Pulse Rate 75 74 Respiratory Rate 22 14 Blood Pressure 120/69 Pulse Oximetry 97 99 Oxygen Delivery Method 07/10/25 20:00 07/10/25 20:30 07/10/25 21:10 Temperature Pulse Rate 79 84 Respiratory Rate 16 20 Blood Pressure 112/72 Pulse Oximetry 97 99 Oxygen Delivery Method 07/10/25 21:30 07/10/25 21:30 07/10/25 22:00 Temperature Pulse Rate 76 Respiratory Rate 14 Blood Pressure 104/63 94/63 Pulse Oximetry 98 Oxygen Delivery Method 07/10/25 22:00 Temperature Pulse Rate 71 Respiratory Rate 15 Blood Pressure Pulse Oximetry 97 Oxygen Delivery Method MDM - Overdose Lab Data 07/10/25 19:02 07/10/25 19:02 Labs: Lab Results 07/10/25 07/10/25 Range/Units 19:02 19:30 WBC 5.2 (4.5-11.0) X10^3/uL RBC 4.66 (4.0-5.2) X10^6/uL Hgb 14.1 (12.0-16.0) g/dL Hct 42.0 (36-46) % MCV 90.3 (80-100) fL MCH 30.3 (26-34) PG MCHC 33.6 (30-36) % RDW 14.5 (11.6-14.8) % Plt Count 173 (150-400) X10^3/uL Neut % (Auto) 65.4 (50-75) % Lymph % (Auto) 23.7 L (25-40) % [place] % (Auto) 6.5 (3-14) % Eos % (Auto) 3.5 (2-4) % Baso % (Auto) 0.9 (0-2) % Neut # (Auto) 3400 (3535-5641) /uL Lymph # (Auto) 1200 (8377-4855) /uL [place] # (Auto) 300 (0-900) /uL Eos # (Auto) 200 (0-450) /uL Baso # (Auto) 0 (0-100) /uL Sodium 136 L (137-145) mmol/L Potassium 3.6 (3.4-5.1) mmol/L Chloride 106 (98-107) mmol/L Carbon Dioxide 22 (22-32) mmol/L BUN 5 L (7-17) mg/dL Creatinine 0.66 (0.52-1.04) mg/dL Estimated GFR > 60 (>60) mL/min BUN/Creatinine Ratio 7.6 (6-22) Glucose 88 (70-99) mg/dL Lactate 1.6 (0.7-2.1) mmol/L Calcium 8.5 (8.4-10.2) mg/dL Total Bilirubin 0.7 (0.2-1.3) mg/dL Conjugated Bilirubin 0.0 (0.0-0.3) md/dL Unconjugated Bilirubin 0.4 (0.0-1.1) mg/dL AST 21 (14-36) IU/L ALT 9 (<35) IU/L Alkaline Phosphatase 67 (38-126) U/L Total Protein 6.6 (6.3-8.2) g/dL Albumin 3.6 (3.5-5.0) g/dL Globulin 3.0 (1.7-4.1) g/dL Albumin/Globulin Ratio 1.2 (1.0-2.8) Urine RBC None seen (0-5/HPF) Urine WBC None seen (0-5/HPF) Ur Squamous Epith Cells 0-1 /hpf (0-5/HPF) Urine Bacteria None seen (None) Vol Urine Centrifuged 10ml (spun) Urine Test Negative (Negative) Salicylates < 1.0 (<20) mg/dL U Opiates 300ng/mL cut Negative (Negative) Ur Oxycodone Screen Negative (Negative) Urine Methadone Screen Negative (Negative) Acetaminophen < 10 (10-30) ug/mL Ur Barbiturates Screen Negative (Negative) U Tricyclic Antidepress Negative (Negative) Ur Phencyclidine Scrn Negative (Negative) Ur Amphetamines Screen Negative (Negative) U Methamphetamines Scrn Negative (Negative) Ur MDMA Scrn (Ecstasy) Negative (Negative) U Benzodiazepines Scrn Positive H (Negative) Darling < 0.2 L (0.6-1.2) mmol/L Urine Cocaine Screen Negative (Negative) U Marijuana (THC) Screen Negative (Negative) Urine pH Normal (Normal) Urine Specific [place] Normal (Normal) Ethyl Alcohol 25 H (<10) mg/dL Ur Creatinine Normal (Normal) Urine Dip Bedside Urine Glucose Negative Bedside Urine Bilirubin - Negative Bedside Urine Ketone - Negative Urine Specific [place] 1.005 Bedside Urine Occult Blood ++ Bedside Urine pH 6 Bedside Urine Protein - Negative Bedside Urine Urobilinogen - Negative Bedside Urine Nitrite - Negative Bedside Urine Leukocytes - Negative Esterase MDM Narrative Medical decision making narrative: Vital signs, nurse triage note, medication list, previous ER visits, and all imaging studies reviewed. WBC 5.2 hemoglobin 14.1 platelet 173 sodium 136 has not 3.6 BUN 5 creatinine 0.66 lactic acid 1.6 UDS positive for benzos alcohol was 0.25. GCS 15 nonfocal neuro exam. Case discussed with poison control at to observe her for 4 hours but otherwise medically stable and cleared for discharge. No acute events during this time. DC home on Narcan prepack. Naloxone at Discharge Meets criteria for naloxone at discharge?: Yes Discharge Plan Departure Patient Disposition: Home Clinical Impression: Accidental drug ingestion Qualifiers: Encounter type: initial encounter Qualified Code(s): T50.901A - Poisoning by unspecified drugs, medicaments and biological substances, accidental (unintentional), initial encounter Insomnia Qualifiers: Insomnia type: unspecified Qualified Code(s): G47.00 - Insomnia, unspecified Instructions: DI for Accidental Ingestion -- Adult Activity Restrictions/Additional Instructions: Return with new or worsening symptoms. Keep hydrated. Follow up PCP tomorrow or Monday for re-evaluation of medications. Prescriptions: No Action No Known Home Medications Referrals: Milka Powers MD [Primary Care Provider, [facility]] Stand Alone Forms: Patient Portal/API
--- NOTE | 2025-07-10 19:15 | DI.CT.S_ITS ---
PROCEDURE: CT ABDOMEN PELVIS W CON INDICATIONS: abd pain TECHNIQUE: After the administration of intravenous contrast, axial sections acquired from the lung bases to the pubic symphysis. Coronal and sagittal reformats were performed. For radiation dose reduction, the following was used: automated exposure control, adjustment of mA and/or kV according to patient size. COMPARISON: [facility], CT, CT ABDOMEN PELVIS W CON, 03/14/2025, 11:05. FINDINGS: Image quality: Diagnostic. Lower Chest: No significant findings. ABDOMEN: Liver: No solid mass. Gallbladder: No radiopaque gallstones or wall thickening. Biliary ducts: No biliary dilation. Pancreas: No ductal dilation. Spleen: Size is within normal limits. Adrenal Glands: No adrenal nodules. Kidneys and Ureters: No hydronephrosis. No solid mass. No complex renal cystic lesion which requires follow up. Stomach and Bowel: Normal colonic caliber, without significant wall thickening. There is large amount of stool seen throughout the colon. The appendix is partially visualized, grossly unremarkable. Peritoneum: No abnormal intraperitoneal fluid. No free air. Ventral Wall: No significant ventral hernia. Abdominal Nodes: No retroperitoneal or mesenteric adenopathy by size criteria. Vessels: Aorta and inferior vena cava are normal in size. PELVIS: Pelvic Organs: Unremarkable. Bladder: No bladder wall thickening, accounting for underdistention. Pelvic Nodes: No enlarged lymph nodes. Miscellaneous: No inguinal hernias are seen. Bones: No aggressive osseous abnormality. IMPRESSION: No acute intra-abdominal abnormality. Constipation. Dictated by: Sohail Danielle M.D. on 07/10/2025 at 20:47 Approved by: Sohail Danielle M.D. on 07/10/2025 at 20:52
[2025-07-10] MEDS: LACTATED RINGERS 1,000 ML 1000 ML IV (19:22)
[2025-07-10 19:24] LABS: Add Manual Diff / Slide Review NO; Hematocrit 42.0 % (36-46); Hemoglobin 14.1 g/dL (12.0-16.0); Lymphocytes Absolute Auto 1200 /uL (1100-4500); Mean Corpuscular HGB Conc 33.6 % (30-36); Mean Corpuscular Hemoglobin 30.3 PG (26-34); Mean Corpuscular Volume 90.3 fL (80-100); Platelet Count 173 X10^3/uL (150-400)
[2025-07-10 19:30] LABS: Lactate (Lactic Acid) 1.6 mmol/L (0.7-2.1)
[2025-07-10 19:31] LABS: Acetaminophen < 10 ug/mL (10-30); Alanine Aminotransferase 9 IU/L (<35); Albumin 3.6 g/dL (3.5-5.0); Albumin Globulin Ratio 1.2 (1.0-2.8); Alkaline Phosphatase 67 U/L (38-126); Blood Urea Nitrogen 5 mg/dL (7-17); Calcium 8.5 mg/dL (8.4-10.2); Carbon Dioxide 22 mmol/L (22-32); Chloride 106 mmol/L (98-107); Estimated Glomerular Filt Rate > 60 mL/min (>60); Ethanol (ETOH) 25 mg/dL (<10); Globulin 3.0 g/dL (1.7-4.1); Glucose 88 mg/dL (70-99); HEMOLYSIS < 15 (0-50); Potassium 3.6 mmol/L (3.4-5.1); Salicylate < 1.0 mg/dL (<20); Sodium 136 mmol/L (137-145); Total Protein 6.6 g/dL (6.3-8.2)
[2025-07-10 19:38] LABS: Lithium < 0.2 mmol/L (0.6-1.2)
[2025-07-10 19:54] LABS: Ur Creatinine Normal (Normal); Ur Specific Gravity Normal (Normal); Urine MDMA Negative (Negative); Urine Methamphetamines Negative (Negative); Urine THC Negative (Negative); Urine Tricyclic Antidepressant Negative (Negative); Urine pH Normal (Normal)
[2025-07-10] MEDS: NALOXONE 4 MG NASAL SPRAY MISC (23:12)
== END 2025-07-10 23:15 | disposition home or self-care (01) ==
PROVIDERS: Emergency Provider Family Medicine; PCP Student in an Organized Health Care Education/Training Program
DX: T50.901A Poisoning by unspecified drugs, medicaments and biological substances, accidental (unintentional), initial encounter (principal); G47.00 Insomnia, unspecified
CPT/HCPCS: 36415; 74177; 80053; 80076; 80178; 80305; 80320; 80329; 81003; 81015; 81025; 83605; 85025; 87086; 96360; 99284; A9270; G0480; Q9967

== ENCOUNTER 2025-07-18 21:15 | Emergency (ER) | payer OTHER, SELFPAY ==
[2025-07-18] VITALS (14 sets, daily range): BP systolic 87–115; BP diastolic 49–62; PULSE 76–96; RESP 12–24; TEMP 36.6; O2SAT 94–97
--- NOTE | 2025-07-18 21:38 | DI.RAD.S_ITS ---
PROCEDURE: XR CHEST 1V INDICATIONS: overdose TECHNIQUE: One view of the chest was acquired. COMPARISON: None. FINDINGS: Surgical changes and devices: None. Lungs and pleura: Lungs are clear. No pleural effusions or pneumothorax. Mediastinum: Mediastinal contours appear normal. Heart size is normal. Bones and chest wall: No suspicious bony lesions. Overlying soft tissues appear unremarkable. IMPRESSION: No acute cardiopulmonary abnormality is seen. Dictated by: Grant Matias M.D. on 07/18/2025 at 22:56 Approved by: Grant Matias M.D. on 07/18/2025 at 22:56
--- NOTE | 2025-07-18 21:38 | ED.PSYCH ---
HPI - Psych <Pooja Tolbert, DO - Last Filed: 07/28/25 23:36> General Chief Complaint: Psychiatric Symptoms Stated Complaint: SI/ polypharm OD Time Seen by Provider: 07/18/25 21:37 Source: EMS, RN notes reviewed and old records reviewed Mode of arrival: EMS Limitations: no limitations History of Present Illness HPI Narrative: 49-year-old female history of alcohol use disorder, history of recreational narcotic use, hypothyroidism, sleep disorder, depression anxiety brought by EMS for drug ingestion. Patient states she had called the suicide hotline after taking hydroxyzine 15 tablets, sertraline unknown number of tablets, mirtazapine possibly 15 tablets, drink 4 glasses of wine and 6 beers this evening. She states she did this about 15 minutes prior to arrival. She states that she called the suicide hotline and then they contacted 911 and she was brought here. She denies trying to kill herself and states she was just trying to go to sleep. She does state that she feels funny. She denies any vision changes, no headache, no chest pain or shortness of breath, she denies any nausea or vomiting. She denies any shakiness or tremors. She denies any diarrhea or constipation. No urinary symptoms. No difficulty with movement. She does state she feels very tired and weird. She reports an allergy to Bactrim. She states she vapes tobacco, states she drinks 4-5 beers daily, states she has never tried did not drink beer so she has no idea if she ever has not withdrawals, she denies any recreational drug use. States her primary care physician is Dr. Ledesma. She states she does see a counselor. She has been here for several substance overdoses in the last month. Related Data Home Medications ?Medication ?Instructions ?Recorded ?Confirmed alprazolam 0.5 mg tablet PO 07/18/25 famotidine 20 mg tablet 20 mg PO BID 07/18/25 07/18/25 levothyroxine 88 mcg tablet 88 mcg PO DAILY 07/18/25 07/18/25 mirtazapine 15 mg tablet 15 mg PO ONCE PM 07/18/25 07/18/25 ondansetron 4 mg disintegrating 4 mg PO Q6-8H 07/18/25 07/18/25 tablet sertraline 100 mg tablet 100 mg PO DAILY 07/18/25 07/18/25 Previous Rx's ?Medication ?Instructions ?Recorded hydroxyzine HCl 10 mg tablet 10 mg PO TID #84 tabs 07/18/25 trazodone 50 mg tablet 50 mg PO BEDTIME insomnia #28 tabs 07/18/25 Allergies Allergy/AdvReac Type Severity Reaction Status Date / Time sulfamethoxazole (From AdvReac Intermediate Itching Verified 07/18/25 21:17 Bactrim) and mild rash on arms and torso trimethoprim (From Bactrim) AdvReac Intermediate Itching Verified 07/18/25 21:17 and mild rash on arms and torso Review of Systems <Pooja Tolbert DO - Last Filed: 07/28/25 23:36> Review of Systems ROS Unobtainable: All systems reviewed & are unremarkable except as noted in HPI and below Patient History <Pooja Tolbert DO - Last Filed: 07/28/25 23:36> Medical History Chondroid syringoma GERD (gastroesophageal reflux disease) Menarche (~1988) 0 PTSD (post-traumatic stress disorder) Depression Anxiety Lumbar spine pain (2010) Chronic back pain (2010) Painful menstrual periods (2014) Ovarian cyst Irregular periods/menstrual cycles (2014) Abnormal Pap smear of cervix (1999) Lee's esophagus (2009) Surgical History Anesthesia History of right knee surgery History of cone biopsy of cervix Family History Mother Diabetes mellitus RI (myocardial infarction) Emphysema lung Hypertension History of heart disease Hyperlipidemia Father Hypertension Hyperlipidemia History of heart disease Family/Other Breast cancer tobacco type: vaping Alcohol type: beer Exam <Pooja Tolbert DO - Last Filed: 07/28/25 23:36> Narrative Exam Narrative: GEN: well nourished, well appearing female, alert and oriented, patient appears to be in mild distress. Patient's speech is slurred but she is conversant. No diaphoresis. HEENT: Atraumatic, pupils are equal round reactive to light, extraocular movements are intact, no nystagmus, nares are clear, TMs are clear with no fluid, there is no conjunctival pallor. Throat is clear without any exudates, erythema, tonsillar enlargement or uvular deviation HEART: Regular rate and rhythm without murmur, clicks, rubs. No carotid bruits, pulses are equal in upper and lower extremities LUNGS:Lungs clear to auscultation, no wheezes, rales, crackles, chest moves symmetrically ABD:bowel sounds normal, soft, non-tender, no guarding, rebound, rigidity, no masses noted, no hepatosplenomegaly MSCL: Non-tender, no muscle atrophy. NEURO:CN 2-12 intact, sensation normal. No cogwheel rigidity. Initial Vital Signs Initial Vital Signs: Vital Signs Temperature 97.9 F 07/18/25 21:17 Pulse Rate 81 07/18/25 21:17 Respiratory Rate 16 07/18/25 21:17 Blood Pressure 95/62 07/18/25 21:17 Pulse Oximetry 95 07/18/25 21:17 Oxygen Delivery Method Room Air 07/18/25 21:17 <Margarette Barrientos MD - Last Filed: 07/19/25 07:30> Initial Vital Signs Initial Vital Signs: Vital Signs Temperature 97.9 F 07/18/25 21:17 Pulse Rate 81 07/18/25 21:17 Respiratory Rate 16 07/18/25 21:17 Blood Pressure 95/62 07/18/25 21:17 Pulse Oximetry 95 07/18/25 21:17 Oxygen Delivery Method Room Air 07/18/25 21:17 <Wolf Schmitz DO - Last Filed: 07/19/25 12:43> Initial Vital Signs Initial Vital Signs: Vital Signs Temperature 97.9 F 07/18/25 21:17 Pulse Rate 81 07/18/25 21:17 Respiratory Rate 16 07/18/25 21:17 Blood Pressure 95/62 07/18/25 21:17 Pulse Oximetry 95 07/18/25 21:17 Oxygen Delivery Method Room Air 07/18/25 21:17 Course <Pooja Tolbert DO - Last Filed: 07/28/25 23:36> Orders Ordered: Discontinued Medications Sodium Chloride (Normal Saline 0.9%) 1,000 mls @ 1,000 mls/hr IV BOLUS ONE Stop: 07/18/25 22:36 Last Infusion: 07/18/25 23:58 Dose: Infused Documented By: Admin: 07/18/25 22:06 Dose: 1,000 mls/hr Documented By: LAMAR Naloxone HCl (Naloxone 4 Mg Nasal [place]) 4 mg MISC DIRECTED ONE Stop: 07/19/25 12:33 Last Admin: 07/19/25 12:35 Dose: 4 mg Documented By: EB Vital Signs Vital signs: Vital Signs - 8 hr 07/19/25 05:00 07/19/25 05:00 07/19/25 05:30 Pulse Rate 70 75 Respiratory Rate 18 14 Blood Pressure 96/54 L Pulse Oximetry 96 96 07/19/25 06:00 07/19/25 06:00 07/19/25 06:30 Pulse Rate 75 74 Respiratory Rate 17 18 Blood Pressure 93/50 L Pulse Oximetry 96 96 07/19/25 07:00 07/19/25 07:00 07/19/25 07:30 Pulse Rate 73 78 Respiratory Rate 16 16 Blood Pressure 87/54 L Pulse Oximetry 95 94 07/19/25 08:00 07/19/25 08:00 07/19/25 08:30 Pulse Rate 70 69 Respiratory Rate 16 17 Blood Pressure 84/51 L Pulse Oximetry 94 94 07/19/25 09:00 07/19/25 09:00 07/19/25 09:30 Pulse Rate 67 69 Respiratory Rate 17 16 Blood Pressure 86/52 L Pulse Oximetry 95 96 07/19/25 09:52 07/19/25 09:52 07/19/25 10:00 Pulse Rate 59 L Respiratory Rate 13 Blood Pressure 98/63 104/76 Pulse Oximetry 96 07/19/25 10:00 07/19/25 10:30 07/19/25 11:00 Pulse Rate 68 76 Respiratory Rate 20 24 Blood Pressure 131/88 Pulse Oximetry 95 95 07/19/25 11:00 07/19/25 11:30 07/19/25 12:01 Pulse Rate 82 92 H 105 H Respiratory Rate 18 36 H 40 H Blood Pressure Pulse Oximetry 97 98 84 L 07/19/25 12:08 07/19/25 12:08 07/19/25 12:22 Pulse Rate 89 95 H Respiratory Rate 20 Blood Pressure 111/77 Pulse Oximetry 97 96 07/19/25 12:22 Pulse Rate Respiratory Rate Blood Pressure 101/75 Pulse Oximetry <Margarette Barrientos MD - Last Filed: 07/19/25 07:30> Orders Ordered: Discontinued Medications Sodium Chloride (Normal Saline 0.9%) 1,000 mls @ 1,000 mls/hr IV BOLUS ONE Stop: 07/18/25 22:36 Last Infusion: 07/18/25 23:58 Dose: Infused Documented By: Admin: 07/18/25 22:06 Dose: 1,000 mls/hr Documented By: SB Naloxone HCl (Naloxone 4 Mg Nasal [place]) 4 mg MISC DIRECTED ONE Stop: 07/19/25 12:33 Last Admin: 07/19/25 12:35 Dose: 4 mg Documented By: EB Reevaluation(s) Reevaluation #1: 3196: Transfer of care from Dr. Tolbert. Patient was re-evaluated. A&O x3. She remains tachycardic in the low 100s. Informed patient that we will continue to observe her in the ER until 5:00 a.m. where repeat EKG will be obtained. She is aware that we are still waiting for urinalysis. Given multiple co-ingestions, plan to have social work speak with patient in the morning. Vital Signs Vital signs: Vital Signs - 8 hr 07/19/25 05:00 07/19/25 05:00 07/19/25 05:30 Pulse Rate 70 75 Respiratory Rate 18 14 Blood Pressure 96/54 L Pulse Oximetry 96 96 07/19/25 06:00 07/19/25 06:00 07/19/25 06:30 Pulse Rate 75 74 Respiratory Rate 17 18 Blood Pressure 93/50 L Pulse Oximetry 96 96 07/19/25 07:00 07/19/25 07:00 07/19/25 07:30 Pulse Rate 73 78 Respiratory Rate 16 16 Blood Pressure 87/54 L Pulse Oximetry 95 94 07/19/25 08:00 07/19/25 08:00 07/19/25 08:30 Pulse Rate 70 69 Respiratory Rate 16 17 Blood Pressure 84/51 L Pulse Oximetry 94 94 07/19/25 09:00 07/19/25 09:00 07/19/25 09:30 Pulse Rate 67 69 Respiratory Rate 17 16 Blood Pressure 86/52 L Pulse Oximetry 95 96 07/19/25 09:52 07/19/25 09:52 07/19/25 10:00 Pulse Rate 59 L Respiratory Rate 13 Blood Pressure 98/63 104/76 Pulse Oximetry 96 07/19/25 10:00 07/19/25 10:30 07/19/25 11:00 Pulse Rate 68 76 Respiratory Rate 20 24 Blood Pressure 131/88 Pulse Oximetry 95 95 07/19/25 11:00 07/19/25 11:30 07/19/25 12:01 Pulse Rate 82 92 H 105 H Respiratory Rate 18 36 H 40 H Blood Pressure Pulse Oximetry 97 98 84 L 07/19/25 12:08 07/19/25 12:08 07/19/25 12:22 Pulse Rate 89 95 H Respiratory Rate 20 Blood Pressure 111/77 Pulse Oximetry 97 96 07/19/25 12:22 Pulse Rate Respiratory Rate Blood Pressure 101/75 Pulse Oximetry <Wolf Schmitz, DO - Last Filed: 07/19/25 12:43> Orders Ordered: Discontinued Medications Sodium Chloride (Normal Saline 0.9%) 1,000 mls @ 1,000 mls/hr IV BOLUS ONE Stop: 07/18/25 22:36 Last Infusion: 07/18/25 23:58 Dose: Infused Documented By: Admin: 07/18/25 22:06 Dose: 1,000 mls/hr Documented By: SB Naloxone HCl (Naloxone 4 Mg Nasal [place]) 4 mg MISC DIRECTED ONE Stop: 07/19/25 12:33 Last Admin: 07/19/25 12:35 Dose: 4 mg Documented By: EB Vital Signs Vital signs: Vital Signs - 8 hr 07/19/25 05:00 07/19/25 05:00 07/19/25 05:30 Pulse Rate 70 75 Respiratory Rate 18 14 Blood Pressure 96/54 L Pulse Oximetry 96 96 07/19/25 06:00 07/19/25 06:00 07/19/25 06:30 Pulse Rate 75 74 Respiratory Rate 17 18 Blood Pressure 93/50 L Pulse Oximetry 96 96 07/19/25 07:00 07/19/25 07:00 07/19/25 07:30 Pulse Rate 73 78 Respiratory Rate 16 16 Blood Pressure 87/54 L Pulse Oximetry 95 94 07/19/25 08:00 07/19/25 08:00 07/19/25 08:30 Pulse Rate 70 69 Respiratory Rate 16 17 Blood Pressure 84/51 L Pulse Oximetry 94 94 10/04/25 09:00 07/19/25 09:00 07/19/25 09:30 Pulse Rate 67 69 Respiratory Rate 17 16 Blood Pressure 86/52 L Pulse Oximetry 95 96 07/19/25 09:52 07/19/25 09:52 07/19/25 10:00 Pulse Rate 59 L Respiratory Rate 13 Blood Pressure 98/63 104/76 Pulse Oximetry 96 07/19/25 10:00 07/19/25 10:30 07/19/25 11:00 Pulse Rate 68 76 Respiratory Rate 20 24 Blood Pressure 131/88 Pulse Oximetry 95 95 07/19/25 11:00 07/19/25 11:30 07/19/25 12:01 Pulse Rate 82 92 H 105 H Respiratory Rate 18 36 H 40 H Blood Pressure Pulse Oximetry 97 98 84 L 07/19/25 12:08 07/19/25 12:08 07/19/25 12:22 Pulse Rate 89 95 H Respiratory Rate 20 Blood Pressure 111/77 Pulse Oximetry 97 96 07/19/25 12:22 Pulse Rate Respiratory Rate Blood Pressure 101/75 Pulse Oximetry [facility] - Psych <Pooja Tolbert, DO - Last Filed: 07/28/25 23:36> Lab Data 07/18/25 21:45 07/18/25 21:45 Labs: Lab Results 07/18/25 07/19/25 07/19/25 Range/Units 21:45 00:39 00:52 WBC 6.9 (4.5-11.0) X10^3/uL RBC 4.86 (4.0-5.2) X10^6/uL Hgb 14.7 (12.0-16.0) g/dL Hct 43.5 (36-46) % MCV 89.5 (80-100) fL MCH 30.3 (26-34) PG MCHC 33.9 (30-36) % RDW 14.6 (11.6-14.8) % Plt Count 216 (150-400) X10^3/uL Neut % (Auto) 75.7 H (50-75) % Lymph % (Auto) 13.4 L (25-40) % [place] % (Auto) 5.3 (3-14) % Eos % (Auto) 2.9 (2-4) % Baso % (Auto) 2.7 H (0-2) % Neut # (Auto) 5300 (6672-8791) /uL Lymph # (Auto) 900 L (9796-9073) /uL [place] # (Auto) 400 (0-900) /uL Eos # (Auto) 200 (0-450) /uL Baso # (Auto) 200 H (0-100) /uL Sodium 136 L (137-145) mmol/L Potassium 3.5 (3.4-5.1) mmol/L Chloride 103 (98-107) mmol/L Carbon Dioxide 20 L (22-32) mmol/L BUN 6 L (7-17) mg/dL Creatinine 0.70 (0.52-1.04) mg/dL Estimated GFR > 60 (>60) mL/min BUN/Creatinine Ratio 8.6 (6-22) Glucose 85 (70-99) mg/dL Lactate 2.2 H 1.6 (0.7-2.1) mmol/L Calcium 8.7 (8.4-10.2) mg/dL Total Bilirubin 0.7 (0.2-1.3) mg/dL Conjugated Bilirubin 0.0 (0.0-0.3) md/dL Unconjugated Bilirubin 0.4 (0.0-1.1) mg/dL AST 22 (14-36) IU/L ALT 11 (<35) IU/L Alkaline Phosphatase 69 (38-126) U/L Total Protein 7.0 (6.3-8.2) g/dL Albumin 3.9 (3.5-5.0) g/dL Globulin 3.1 (1.7-4.1) g/dL Albumin/Globulin Ratio 1.3 (1.0-2.8) HCG, Quant < 2.39 mIU/mL Serum , Qual Negative (Negative) Salicylates < 1.0 (<20) mg/dL U Opiates 300ng/mL cut Negative (Negative) Ur Oxycodone Screen Negative (Negative) Urine Methadone Screen Negative (Negative) Acetaminophen < 10 (10-30) ug/mL Ur Barbiturates Screen Negative (Negative) U Tricyclic Antidepress Negative (Negative) Ur Phencyclidine Scrn Negative (Negative) Ur Amphetamines Screen Negative (Negative) U Methamphetamines Scrn Negative (Negative) Ur MDMA Scrn (Ecstasy) Negative (Negative) U Benzodiazepines Scrn Positive H (Negative) Urine Cocaine Screen Negative (Negative) U Marijuana (THC) Screen Negative (Negative) Urine pH TNP Urine Specific [place] TNP Ethyl Alcohol 86 H (<10) mg/dL Ur Creatinine TNP ECG Data Attestation: I personally reviewed and interpreted this ECG as follows: Prior ECG tracings: available for review Interpretation: Sinus rhythm with PVC rate of 93 OK 140 QRS 80 QTC of 474, no acute ST elevation depression noted. Patient has prior from 06/26/2025 which appears similar to today's. MDM Narrative Medical decision making narrative: Labs normal white count, hemoglobin and platelets, chemistries shows sodium 136, potassium 3.5 with a chloride of 103 CO2 is 20 BUN 6 creatinine is 0.7 lactate is 2.2 LFTs are appropriate. Tylenol, salicylate are negative ETOH is 86. EKG sinus rhythm, rate of 93, QRS is 80 QTC is 474. Chest x-ray Patient received fluids. Poison control was contacted. Recommendations include monitoring for 8 hours particularly for the sertraline they asked for repeat EKG at 5:00 a.m. or if patient becomes more symptomatic. They note watching for hypotension may require pressors, if QRS is greater than 110 or QTC is greater than 500 re-contact poison control. Patient signed out to overnight provider. Patient has had fairly consistent blood pressures 80-100 systolic on prior visits as well. Point of monitor overnight, repeat EKG at 5:00 a.m. or for any other new changes overnight. Chest x-ray formal report is still pending. Patient has had four visits in the past month with three having overdose. <Margarette Barrientos MD - Last Filed: 07/19/25 07:30> Lab Data Labs: Lab Results 07/18/25 07/19/25 07/19/25 Range/Units 21:45 00:39 00:52 WBC 6.9 (4.5-11.0) X10^3/uL RBC 4.86 (4.0-5.2) X10^6/uL Hgb 14.7 (12.0-16.0) g/dL Hct 43.5 (36-46) % MCV 89.5 (80-100) fL MCH 30.3 (26-34) PG MCHC 33.9 (30-36) % RDW 14.6 (11.6-14.8) % Plt Count 216 (150-400) X10^3/uL Neut % (Auto) 75.7 H (50-75) % Lymph % (Auto) 13.4 L (25-40) % [place] % (Auto) 5.3 (3-14) % Eos % (Auto) 2.9 (2-4) % Baso % (Auto) 2.7 H (0-2) % Neut # (Auto) 5300 (2107-6769) /uL Lymph # (Auto) 900 L (6060-6778) /uL [place] # (Auto) 400 (0-900) /uL Eos # (Auto) 200 (0-450) /uL Baso # (Auto) 200 H (0-100) /uL Sodium 136 L (137-145) mmol/L Potassium 3.5 (3.4-5.1) mmol/L Chloride 103 (98-107) mmol/L Carbon Dioxide 20 L (22-32) mmol/L BUN 6 L (7-17) mg/dL Creatinine 0.70 (0.52-1.04) mg/dL Estimated GFR > 60 (>60) mL/min BUN/Creatinine Ratio 8.6 (6-22) Glucose 85 (70-99) mg/dL Lactate 2.2 H 1.6 (0.7-2.1) mmol/L Calcium 8.7 (8.4-10.2) mg/dL Total Bilirubin 0.7 (0.2-1.3) mg/dL Conjugated Bilirubin 0.0 (0.0-0.3) md/dL Unconjugated Bilirubin 0.4 (0.0-1.1) mg/dL AST 22 (14-36) IU/L ALT 11 (<35) IU/L Alkaline Phosphatase 69 (38-126) U/L Total Protein 7.0 (6.3-8.2) g/dL Albumin 3.9 (3.5-5.0) g/dL Globulin 3.1 (1.7-4.1) g/dL Albumin/Globulin Ratio 1.3 (1.0-2.8) HCG, Quant < 2.39 mIU/mL Serum , Qual Negative (Negative) Salicylates < 1.0 (<20) mg/dL U Opiates 300ng/mL cut Negative (Negative) Ur Oxycodone Screen Negative (Negative) Urine Methadone Screen Negative (Negative) Acetaminophen < 10 (10-30) ug/mL Ur Barbiturates Screen Negative (Negative) U Tricyclic Antidepress Negative (Negative) Ur Phencyclidine Scrn Negative (Negative) Ur Amphetamines Screen Negative (Negative) U Methamphetamines Scrn Negative (Negative) Ur MDMA Scrn (Ecstasy) Negative (Negative) U Benzodiazepines Scrn Positive H (Negative) Urine Cocaine Screen Negative (Negative) U Marijuana (THC) Screen Negative (Negative) Urine pH TNP Urine Specific [place] TNP Ethyl Alcohol 86 H (<10) mg/dL Ur Creatinine TNP <Wolf Schmitz, DO - Last Filed: 07/19/25 12:43> Lab Data Labs: Lab Results 07/18/25 07/19/25 07/19/25 Range/Units 21:45 00:39 00:52 WBC 6.9 (4.5-11.0) X10^3/uL RBC 4.86 (4.0-5.2) X10^6/uL Hgb 14.7 (12.0-16.0) g/dL Hct 43.5 (36-46) % MCV 89.5 (80-100) fL MCH 30.3 (26-34) PG MCHC 33.9 (30-36) % RDW 14.6 (11.6-14.8) % Plt Count 216 (150-400) X10^3/uL Neut % (Auto) 75.7 H (50-75) % Lymph % (Auto) 13.4 L (25-40) % [place] % (Auto) 5.3 (3-14) % Eos % (Auto) 2.9 (2-4) % Baso % (Auto) 2.7 H (0-2) % Neut # (Auto) 5300 (4821-6831) /uL Lymph # (Auto) 900 L (6218-3675) /uL [place] # (Auto) 400 (0-900) /uL Eos # (Auto) 200 (0-450) /uL Baso # (Auto) 200 H (0-100) /uL Sodium 136 L (137-145) mmol/L Potassium 3.5 (3.4-5.1) mmol/L Chloride 103 (98-107) mmol/L Carbon Dioxide 20 L (22-32) mmol/L BUN 6 L (7-17) mg/dL Creatinine 0.70 (0.52-1.04) mg/dL Estimated GFR > 60 (>60) mL/min BUN/Creatinine Ratio 8.6 (6-22) Glucose 85 (70-99) mg/dL Lactate 2.2 H 1.6 (0.7-2.1) mmol/L Calcium 8.7 (8.4-10.2) mg/dL Total Bilirubin 0.7 (0.2-1.3) mg/dL Conjugated Bilirubin 0.0 (0.0-0.3) md/dL Unconjugated Bilirubin 0.4 (0.0-1.1) mg/dL AST 22 (14-36) IU/L ALT 11 (<35) IU/L Alkaline Phosphatase 69 (38-126) U/L Total Protein 7.0 (6.3-8.2) g/dL Albumin 3.9 (3.5-5.0) g/dL Globulin 3.1 (1.7-4.1) g/dL Albumin/Globulin Ratio 1.3 (1.0-2.8) HCG, Quant < 2.39 mIU/mL Serum , Qual Negative (Negative) Salicylates < 1.0 (<20) mg/dL U Opiates 300ng/mL cut Negative (Negative) Ur Oxycodone Screen Negative (Negative) Urine Methadone Screen Negative (Negative) Acetaminophen < 10 (10-30) ug/mL Ur Barbiturates Screen Negative (Negative) U Tricyclic Antidepress Negative (Negative) Ur Phencyclidine Scrn Negative (Negative) Ur Amphetamines Screen Negative (Negative) U Methamphetamines Scrn Negative (Negative) Ur MDMA Scrn (Ecstasy) Negative (Negative) U Benzodiazepines Scrn Positive H (Negative) Urine Cocaine Screen Negative (Negative) U Marijuana (THC) Screen Negative (Negative) Urine pH TNP Urine Specific [place] TNP Ethyl Alcohol 86 H (<10) mg/dL Ur Creatinine TNP MDM Narrative Medical decision making narrative: Labs normal white count, hemoglobin and platelets, chemistries shows sodium 136, potassium 3.5 with a chloride of 103 CO2 is 20 BUN 6 creatinine is 0.7 lactate is 2.2 LFTs are appropriate. Tylenol, salicylate are negative ETOH is 86. EKG sinus rhythm, rate of 93, QRS is 80 QTC is 474. Chest x-ray Patient received fluids. Poison control was contacted. Recommendations include monitoring for 8 hours particularly for the sertraline they asked for repeat EKG at 5:00 a.m. or if patient becomes more symptomatic. They note watching for hypotension may require pressors, if QRS is greater than 110 or QTC is greater than 500 re-contact poison control. Patient signed out to overnight provider. Patient has had fairly consistent blood pressures 80-100 systolic on prior visits as well. Point of monitor overnight, repeat EKG at 5:00 a.m. or for any other new changes overnight. Chest x-ray formal report is still pending. Patient has had four visits in the past month with three having overdose. Patient signed out to me at shift change pending final disposition. All lab work, vital signs, nurse triage note, medication list, previous ER visits, and all imaging studies reviewed. Differential diagnosis includes polysubstance use abuse, suicidal ideation, anxiety depression PTSD insomnia DC home on Narcan Pre-Pack. Social work has seen the patient with no concerns for suicidal ideation or attempt. Discharge Plan Departure Patient Disposition: Home Clinical Impression: Overdose Qualifiers: Encounter type: subsequent encounter Injury intent: accidental or unintentional Qualified Code(s): T50.901D - Poisoning by unspecified drugs, medicaments and biological substances, accidental (unintentional), subsequent encounter Instructions: DI for Drug Overdose in Adults Activity Restrictions/Additional Instructions: Return with new or worsening symptoms. Follow up with counseling appointment on Monday. Prescriptions: No Action trazodone 50 mg tablet 50 mg PO BEDTIME Qty: 28 0RF Rx Instructions: Please dispense in weekly pill packs. hydroxyzine HCl 10 mg tablet 10 mg PO TID Qty: 84 0RF Rx Instructions: Please dispense in weekly pill packs. levothyroxine 88 mcg tablet 88 mcg PO DAILY alprazolam 0.5 mg tablet PO famotidine 20 mg tablet 20 mg PO BID mirtazapine 15 mg tablet 15 mg PO ONCE PM ondansetron 4 mg tablet,disintegrating 4 mg PO Q6-8H sertraline 100 mg tablet 100 mg PO DAILY Referrals: Milka Ledesma MD [Primary Care Provider, Family Practice] Stand Alone Forms: Patient Portal/API ED Sign-out <Margarette Barrientos MD - Last Filed: 07/19/25 07:30> Cosign ED Attending Merlyature Attestation: Transfer of care to Dr. Schmitz at 07:15 today pending medical clearance (urinalysis, EtOH metabolism). EKG with no QT prolongation. Patient should also be evaluated by SW given multiple overdoses.
[2025-07-18 21:54] LABS: Add Manual Diff / Slide Review NO; Hematocrit 43.5 % (36-46); Hemoglobin 14.7 g/dL (12.0-16.0); Lymphocytes Absolute Auto 900 /uL (1100-4500); Mean Corpuscular HGB Conc 33.9 % (30-36); Mean Corpuscular Hemoglobin 30.3 PG (26-34); Mean Corpuscular Volume 89.5 fL (80-100); Platelet Count 216 X10^3/uL (150-400)
--- NOTE | 2025-07-18 21:56 | EKG_ITS ---
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
[2025-07-18 22:03] LABS: Lactate (Lactic Acid) 2.2 mmol/L (0.7-2.1)
[2025-07-18 22:04] LABS: Acetaminophen < 10 ug/mL (10-30); Alanine Aminotransferase 11 IU/L (<35); Albumin 3.9 g/dL (3.5-5.0); Albumin Globulin Ratio 1.3 (1.0-2.8); Alkaline Phosphatase 69 U/L (38-126); Blood Urea Nitrogen 6 mg/dL (7-17); Calcium 8.7 mg/dL (8.4-10.2); Carbon Dioxide 20 mmol/L (22-32); Chloride 103 mmol/L (98-107); Estimated Glomerular Filt Rate > 60 mL/min (>60); Ethanol (ETOH) 86 mg/dL (<10); Globulin 3.1 g/dL (1.7-4.1); Glucose 85 mg/dL (70-99); HEMOLYSIS < 15 (0-50); Potassium 3.5 mmol/L (3.4-5.1); Salicylate < 1.0 mg/dL (<20); Sodium 136 mmol/L (137-145); Total Protein 7.0 g/dL (6.3-8.2)
[2025-07-18] MEDS: SODIUM CHLORIDE 0.9% 1,000 ML 1000 ML IV (22:06)
--- NOTE | 2025-07-18 22:29 | PC.NURSE ---
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
[2025-07-18 22:53] LABS: Pregnancy Test Serum,Qual Negative (Negative)
[2025-07-18 23:24] LABS: HCG Quantitative /Beta subunit < 2.39 mIU/mL
[2025-07-18 23:25] LABS: Reflexed Lactate in 2 Hours Y
[2025-07-19] VITALS (33 sets, daily range): BP systolic 84–131; BP diastolic 50–88; PULSE 59–105; RESP 13–40; O2SAT 84–98
[2025-07-19 01:14] LABS: UR Morphine/Opiate cutoff 300 Negative (Negative); Urine MDMA Negative (Negative); Urine Methamphetamines Negative (Negative); Urine Tetrahydrocannabinol Negative (Negative); Urine Tricyclic Antidepressant Negative (Negative)
[2025-07-19 01:21] LABS: Lactate 2HR (Lactic Acid Rflx) 1.6 mmol/L (0.7-2.1)
--- NOTE | 2025-07-19 05:02 | EKG_ITS ---
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
--- NOTE | 2025-07-19 06:51 | PC.NURSE ---
Hermelinda from Poison Control cleared patient. Hermelinda states to call if we have further questions or concerns.
[2025-07-19] MEDS: NALOXONE 4 MG NASAL SPRAY MISC (12:35)
--- NOTE | 2025-07-19 13:07 | CM.SWNOTE ---
ED GRIDCAP MACHINE OPERATOR Assessment Note: GRIDCAP MACHINE OPERATOR/Recreation Facility Manager Assessment Start date 07/19/25 Visit Start Time 12:30 End date 07/19/25 Visit End Time 12:45 Total time Care 15 minutes Management spent on patient visit-in minutes Presenting Problem Patient presented to the ED after polypharmacy overdose . Patient has a history of SI and depression, there were concerns that this was an intentional overdose due to pt calling the Suicide Hotline after her concerns of polypharmacy. Precipitating Event( Patient states she was just trying to go to sleep as s) she has always had difficulty with falling asleep, which is why she took the pain medications. She reports to me that this was not an attempt to end her life. Patient has a history of complicated grief response after the of her partner and has been working with her PCP and MH Therapist to assist with this. Patient Strengths Patient sees her therapist weekly and has been reconnecting with her family. Current Behavioral Carlee Jay, [facility], [facility] [place] Psych[facility]ry & Health Provider(s) Behavioral Health (ph#[phone]) Include Facility, Provider, Ph. # Psych. 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 Dependency Psychiatric Patient had a voluntary inpatient admission in February 2025 Hospitalizations ( at [facility]. date(s)/location) Psychosocial Patient is a 49yo female, resident of [place]. information & Patient lives alone but has the support of family who Support Systems live in [place]. School/Work Patient is currently unemployed with disability benefits. Legal Matters - None reported. Outstanding Issues Orientation (Person/ AOx3 Place/Time) Stated Mood Tired Affect (Congruent Flat, congruent with mood with Mood?) Thought Content - None reported, none assessed during meeting. Specify/Describe Obsessions, Delusions, Hallucinations Thought Processes ( Logical, coherent Logical-Coherent- Goal Directed- Detailed-Tangential- Circumstantial- Logical-Disorganized -Thought Blocking) Speech (Normal-Slow- Normal, soft Opfnjlh-Nfbeu-Wrzk- Loud-Pressured) Motor (Normal- Normal Oylvczatc-Lzda-Mfypa ) Insight (Good-Fair- Fair Poor/Limited) Judgement (Good-Fair Fair -Poor/Limited) Impulse Control ( Impaired Adequate-Impaired) Memory (Immediate- Intact Recent-Remote, Impaired-Intact) Concentration ( Intact Intact-Impaired) Attention (Intact- Intact Impaired) Behavior ( Appropriate Appropriate- Inappropriate) Suicidal Ideation ( No Plan) Homicidal Ideation ( No Plan) Comment [place]-SUICIDE SEVERITY RATING SCALE 1) Have you wished you were or wished you could go to sleep and not wake up? NO 2) Have you actually had any thoughts of killing yourself? NO 3) Have you been thinking about how you might do this? NO 4) Have you had these thoughts and had some intention of acting on them? NO 5) Have you started to work out or worked out the details of how to kill yourself? Do you intend to carry out this plan? NO 6) Have you ever done anything, started to do anything, or prepared to do anything to end your life? YES If YES, ask: Was this within the past three months? NO Intervention Reviewed chart and discussed with ED Provider pt's medical status and discharge needs. ED GRIDCAP MACHINE OPERATOR meets with patient. Patient endorses preference to discharge home and follow up with her therapist. Patient reports she sees her therapist at [facility] every Monday and as an appointment to see her on Monday, 07/22. Patient explains she has been working with her Primary Care Provider, Dr. Powers, to assist with her psych medications. Patient denies SI at this time, denies hallucinations. Patient explains I was just trying to get some sleep and her ingestion of pills was not an intent to end her life. She states, I would not have called for help if I wanted to . ED GRIDCAP MACHINE OPERATOR and patient discuss goals of care. Patient explains they are agreeable to this GRIDCAP MACHINE OPERATOR communicating with her therapist for her follow up on 07/19, declines [facility] follow up call. Patient contracts for safety and feels rested after some sleep in the ED. At this time, it is the opinion of this GRIDCAP MACHINE OPERATOR that patient would benefit from outpatient MH follow up. GRIDCAP MACHINE OPERATOR informs ED provider, Dr. Schmitz, who indicates agreement. GRIDCAP MACHINE OPERATOR informs LIYA Carrillo. RA Plan Pt to discharge home, will follow up with MH Therapist on 07/22. GRIDCAP MACHINE OPERATOR to communicate with pt therapist for continuity of care. Emely Polanco PERSONNEL WORKER
== END 2025-07-19 12:49 | disposition home or self-care (01) ==
PROVIDERS: Emergency Medicine; Emergency Provider Family Medicine; PCP Student in an Organized Health Care Education/Training Program
DX: T50.992A Poisoning by other drugs, medicaments and biological substances, intentional self-harm, initial encounter (principal)
CPT/HCPCS: 36415; 71045; 80053; 80076; 80305; 80320; 80329; 83605; 84702; 84703; 85025; 93005; 96360; 96361; 99284; A9270; G0480

== ENCOUNTER 2025-08-03 17:41 | Emergency (ER) | payer OTHER, SELFPAY ==
[2025-08-03] VITALS (11 sets, daily range): BP systolic 88–113; BP diastolic 57–79; PULSE 63–78; RESP 13–28; TEMP 37.3; O2SAT 96–99; BMI 22.2
--- NOTE | 2025-08-03 18:01 | PC.NURSE ---
spoke with jenelle at poison control states reccomend for sx of toxicity for 6-8hrs in addition to lab work and monitor 6-8hours states unlikely to exhibit toxicity
--- NOTE | 2025-08-03 18:01 | PC.NURSE ---
patients purse and medication that was brought by EMS were locked in locker 8 in the ER.
[2025-08-03 18:33] LABS: Add Manual Diff / Slide Review NO; Hematocrit 45.0 % (36-46); Hemoglobin 15.4 g/dL (12.0-16.0); Lymphocytes Absolute Auto 1600 /uL (1100-4500); Mean Corpuscular HGB Conc 34.1 % (30-36); Mean Corpuscular Hemoglobin 30.2 PG (26-34); Mean Corpuscular Volume 88.5 fL (80-100); Platelet Count 244 X10^3/uL (150-400)
[2025-08-03 18:39] LABS: Acetaminophen < 10 ug/mL (10-30); Alanine Aminotransferase 15 IU/L (<35); Albumin 4.6 g/dL (3.5-5.0); Albumin Globulin Ratio 1.3 (1.0-2.8); Alkaline Phosphatase 79 U/L (38-126); Blood Urea Nitrogen 8 mg/dL (7-17); Calcium 9.3 mg/dL (8.4-10.2); Carbon Dioxide 23 mmol/L (22-32); Chloride 103 mmol/L (98-107); Estimated Glomerular Filt Rate > 60 mL/min (>60); Ethanol (ETOH) 116 mg/dL (<10); Globulin 3.5 g/dL (1.7-4.1); Glucose 92 mg/dL (70-99); HEMOLYSIS < 15 (0-50); Potassium 3.4 mmol/L (3.4-5.1); Salicylate < 1.0 mg/dL (<20); Sodium 136 mmol/L (137-145); Total Protein 8.1 g/dL (6.3-8.2)
[2025-08-03 18:50] LABS: UR Morphine/Opiate cutoff 300 Negative (Negative); Ur Specific Gravity Normal (Normal); Urine MDMA Negative (Negative); Urine Methamphetamines Negative (Negative); Urine Tetrahydrocannabinol Negative (Negative); Urine Tricyclic Antidepressant Negative (Negative)
[2025-08-03 19:01] LABS: Appearance Urine UA CLEAR; Bilirubin Urine UA NEGATIVE (NEGATIVE); Color Urine UA YELLOW; Glucose Urine UA NEGATIVE (Negative); Ketones Urine UA NEGATIVE (NEGATIVE); Leukocyte Esterase Urine UA NEGATIVE (NEGATIVE); Nitrite Urine UA NEGATIVE (Negative); Occult Blood Urine UA NEGATIVE (Negative); Protein Urine UA NEGATIVE (Negative); Specific Gravity Urine UA <=1.005 (1.000-1.035); Urobilinogen Urine UA 0.2 E.U./dL (0.2)
[2025-08-03 19:03] LABS: pH Urine UA 5.5 (4.5-8.0)
[2025-08-03 19:12] LABS: TSH w/ Reflex to FT4 2.86 uIU/mL (0.47-4.68)
--- NOTE | 2025-08-03 21:36 | ED.OVERDOSE ---
HPI - Overdose General Chief Complaint: Toxicology Problem Stated Complaint: Overdose Time Seen by Provider: 08/03/25 17:57 Source: patient and EMS Mode of arrival: EMS History of Present Illness HPI Narrative: 49y F history of alcohol use disorder recreational narcotic use hypothyroidism sleep disorder depression anxiety brought in by EMS for drug ingestion again. She has been seen here multiple times after taking 200 mg of hydroxyzine to try to sleep. She denies homicidal suicidal ideation seeing things or hearing voices. She denies headache, dizziness,lightheadedness, chest pain, shortness of breath, vomiting, diarrhea. Patient has been seen here multiple times on multiple occasions for drug ingestion help sleep. Patient reports having a PCP appointment tomorrow At 10:30 a.m. and Monday with her counselor. She states she started having sleeping problems about a year ago when she lost her partner the same time. Other than what is stated 14 point review of system is negative. Related Data Home Medications ?Medication ?Instructions ?Recorded ?Confirmed alprazolam 0.5 mg tablet PO 07/18/25 famotidine 20 mg tablet 20 mg PO BID 07/18/25 07/18/25 levothyroxine 88 mcg tablet 88 mcg PO DAILY 07/18/25 07/18/25 mirtazapine 15 mg tablet 15 mg PO ONCE PM 07/18/25 07/18/25 ondansetron 4 mg disintegrating 4 mg PO Q6-8H 07/18/25 07/18/25 tablet sertraline 100 mg tablet 100 mg PO DAILY 07/18/25 07/18/25 Previous Rx's ?Medication ?Instructions ?Recorded hydroxyzine HCl 10 mg tablet 10 mg PO TID #84 tabs 07/18/25 trazodone 50 mg tablet 50 mg PO BEDTIME insomnia #28 tabs 07/18/25 Allergies Allergy/AdvReac Type Severity Reaction Status Date / Time sulfamethoxazole (From AdvReac Intermediate Itching Verified 08/03/25 17:51 Bactrim) and mild rash on arms and torso trimethoprim (From Bactrim) AdvReac Intermediate Itching Verified 08/03/25 17:51 and mild rash on arms and torso Review of Systems Review of Systems ROS Unobtainable: All systems reviewed & are unremarkable except as noted in HPI and below Patient History Medical History Chondroid syringoma GERD (gastroesophageal reflux disease) Menarche (~1988) 0 PTSD (post-traumatic stress disorder) Depression Anxiety Lumbar spine pain (2010) Chronic back pain (2010) Painful menstrual periods (2014) Ovarian cyst Irregular periods/menstrual cycles (2014) Abnormal Pap smear of cervix (1999) Lee's esophagus (2009) Surgical History Anesthesia History of right knee surgery History of cone biopsy of cervix Family History Mother Diabetes mellitus AL (myocardial infarction) Emphysema lung Hypertension History of heart disease Hyperlipidemia Father Hypertension Hyperlipidemia History of heart disease Family/Other Breast cancer Social History Smoking Status: Current every day smoker Smoking Status: Current every day smoker tobacco type: vaping Alcohol type: beer Exam Narrative Exam Narrative: GENERAL: [49} year old patient appears stated age. Well-developed patient, in mild distress. HEAD: Atraumatic. Normocephalic. EYES: Pupils equal round and reactive. Extraocular motions intact. No scleral icterus. No injection or drainage. ENT: Nose without bleeding, purulent drainage. Throat without erythema, tonsillar hypertrophy or exudate. Airway patent. NECK: Trachea midline. Non tender CARDIOVASCULAR: Regular rate and rhythm without murmurs, gallops, or rubs. RESPIRATORY: Clear to auscultation. Breath sounds equal bilaterally. No wheezes, rales, or rhonchi. GASTROINTESTINAL: Abdomen soft, non-tender, nondistended. EXTREMITIES: No edema or joint tenderness. BACK: Nontender without deformity or crepitance. No flank tenderness. NEURO: AOx3. GCS 15 SKIN: No rash or erythema of visible areas Initial Vital Signs Initial Vital Signs: Vital Signs Pulse Rate 70 08/03/25 17:48 Respiratory Rate 28 H 08/03/25 17:48 Pulse Oximetry 99 08/03/25 17:48 Course Orders Ordered: ED Orders 08/03/25 17:48 Acetaminophen Stat Complete Blood Count AUTO DIFF Stat Comprehensive Metabolic Panel Stat Ethanol (ETOH) Stat Salicylate Stat TSH w/ Reflex to FT4 Stat 08/03/25 18:22 Consult to WOOD FINISHER APPRENTICE - Emt/Paramedic Routine 08/03/25 18:34 Test Urine Stat Urinalysis and Microscopic Stat Urine Drug Screen, Rapid Stat Vital Signs Vital signs: Vital Signs - 8 hr 08/03/25 17:48 08/03/25 17:51 08/03/25 18:00 Temperature 99.2 F Pulse Rate 70 78 Respiratory Rate 28 H 16 Blood Pressure 113/79 102/70 Pulse Oximetry 99 96 Oxygen Delivery Method Room Air 08/03/25 18:00 08/03/25 18:31 08/03/25 18:32 Temperature Pulse Rate 68 71 65 Respiratory Rate 18 23 17 Blood Pressure Pulse Oximetry 97 98 98 Oxygen Delivery Method 08/03/25 18:32 08/03/25 19:00 08/03/25 19:00 Temperature Pulse Rate 63 Respiratory Rate 24 Blood Pressure 108/73 97/64 Pulse Oximetry 97 Oxygen Delivery Method 08/03/25 19:30 08/03/25 19:30 08/03/25 20:00 Temperature Pulse Rate 65 64 Respiratory Rate 16 19 Blood Pressure 97/62 Pulse Oximetry 97 97 Oxygen Delivery Method 08/03/25 20:00 08/03/25 20:30 08/03/25 20:30 Temperature Pulse Rate 68 Respiratory Rate 13 Blood Pressure 100/66 93/57 L Pulse Oximetry 97 Oxygen Delivery Method 08/03/25 21:00 08/03/25 21:00 Temperature Pulse Rate 69 Respiratory Rate 13 Blood Pressure 99/67 Pulse Oximetry 96 Oxygen Delivery Method MDM - Overdose Lab Data 08/03/25 17:48 08/03/25 17:48 Labs: Lab Results 08/03/25 08/03/25 08/03/25 Range/Units 17:48 18:34 18:34 WBC 7.8 (4.5-11.0) X10^3/uL RBC 5.09 (4.0-5.2) X10^6/uL Hgb 15.4 (12.0-16.0) g/dL Hct 45.0 (36-46) % MCV 88.5 (80-100) fL MCH 30.2 (26-34) PG MCHC 34.1 (30-36) % RDW 13.6 (11.6-14.8) % Plt Count 244 (150-400) X10^3/uL Neut % (Auto) 69.6 (50-75) % Lymph % (Auto) 20.7 L (25-40) % [place] % (Auto) 6.9 (3-14) % Eos % (Auto) 1.8 L (2-4) % Baso % (Auto) 1.0 (0-2) % Neut # (Auto) 5400 (9851-9039) /uL Lymph # (Auto) 1600 (3367-9801) /uL [place] # (Auto) 500 (0-900) /uL Eos # (Auto) 100 (0-450) /uL Baso # (Auto) 100 (0-100) /uL Sodium 136 L (137-145) mmol/L Potassium 3.4 (3.4-5.1) mmol/L Chloride 103 (98-107) mmol/L Carbon Dioxide 23 (22-32) mmol/L BUN 8 (7-17) mg/dL Creatinine 0.81 (0.52-1.04) mg/dL Estimated GFR > 60 (>60) mL/min BUN/Creatinine Ratio 9.9 (6-22) Glucose 92 (70-99) mg/dL Calcium 9.3 (8.4-10.2) mg/dL Total Bilirubin 0.9 (0.2-1.3) mg/dL AST 28 (14-36) IU/L ALT 15 (<35) IU/L Alkaline Phosphatase 79 (38-126) U/L Total Protein 8.1 (6.3-8.2) g/dL Albumin 4.6 (3.5-5.0) g/dL Globulin 3.5 (1.7-4.1) g/dL Albumin/Globulin Ratio 1.3 (1.0-2.8) TSH 2.86 (0.47-4.68) uIU/mL Urine Color Yellow Urine Appearance Clear Urine pH 5.5 Normal (4.5-8.0) Ur Specific [place] <=1.005 (1.000-1.035) Urine Protein Negative (Negative) Urine Glucose (UA) Negative (Negative) g/dL Urine Ketones Negative (NEGATIVE) Urine Occult Blood Negative (Negative) Urine Nitrate Negative (Negative) Urine Bilirubin Negative (NEGATIVE) Urine Urobilinogen 0.2 (0.2) E.U./dL Ur Leukocyte Esterase Negative (NEGATIVE) Urine RBC None seen (0-5/HPF) Urine WBC None seen (0-5/HPF) Ur Squamous Epith Cells 1-5 /hpf (0-5/HPF) Urine Bacteria None seen (None) Vol Urine Centrifuged 10ml (spun) Urine Test Negative (Negative) Salicylates < 1.0 (<20) mg/dL U Opiates 300ng/mL cut Negative (Negative) Ur Oxycodone Screen Negative (Negative) Urine Methadone Screen Negative (Negative) Acetaminophen < 10 (10-30) ug/mL Ur Barbiturates Screen Negative (Negative) U Tricyclic Antidepress Negative (Negative) Ur Phencyclidine Scrn Negative (Negative) Ur Amphetamines Screen Negative (Negative) U Methamphetamines Scrn Negative (Negative) Ur MDMA Scrn (Ecstasy) Negative (Negative) U Benzodiazepines Scrn Negative (Negative) Urine Cocaine Screen Negative (Negative) U Marijuana (THC) Screen Negative (Negative) Urine Specific [place] Normal (Normal) Ethyl Alcohol 116 H (<10) mg/dL Ur Creatinine Normal (Normal) Urine Dip Bedside Urine Glucose Negative Bedside Urine Bilirubin - Negative Bedside Urine Ketone - Negative Urine Specific [place] 1.000 Bedside Urine Occult Blood - Negative Bedside Urine pH 6.0 Bedside Urine Protein - Negative Bedside Urine Urobilinogen - Negative Bedside Urine Nitrite - Negative Bedside Urine Leukocytes - Negative Esterase MDM Narrative Medical decision making narrative: All lab work, vital signs, nurse triage note, medication list, previous ER visits, and all imaging studies reviewed. WBC to 7.8 hemoglobin 15.4 platelet 244 sodium 136 potassium 3.4 chloride 103 CO2 23 BUN 8 creatinine 0.81 glucose 92 LFTs are normal TSH 2.86 urine does not show UTI alcohol was 116. Patient given Narcan back here prior to discharge. She has an appointment tomorrow with her PCP at 10:30 AM. Counseling appointment on Monday. Naloxone at Discharge Meets criteria for naloxone at discharge?: Yes Discharge Plan Departure Patient Disposition: Home Clinical Impression: Alcohol abuse, Drug ingestion Instructions: DI for Alcohol Use Disorder Activity Restrictions/Additional Instructions: Return with new or worsening symptoms. Follow up with PCP appointment at 10:30 a.m. tomorrow. Prescriptions: No Action trazodone 50 mg tablet 50 mg PO BEDTIME Qty: 28 0RF Rx Instructions: Please dispense in weekly pill packs. hydroxyzine HCl 10 mg tablet 10 mg PO TID Qty: 84 0RF Rx Instructions: Please dispense in weekly pill packs. levothyroxine 88 mcg tablet 88 mcg PO DAILY alprazolam 0.5 mg tablet PO famotidine 20 mg tablet 20 mg PO BID mirtazapine 15 mg tablet 15 mg PO ONCE PM ondansetron 4 mg tablet,disintegrating 4 mg PO Q6-8H sertraline 100 mg tablet 100 mg PO DAILY Referrals: Milka Powers MD [Primary Care Provider, Family Practice] Stand Alone Forms: Patient Portal/API
== END 2025-08-03 22:09 | disposition home or self-care (01) ==
PROVIDERS: Emergency Provider Family Medicine; PCP Student in an Organized Health Care Education/Training Program
DX: F10.10 Alcohol abuse, uncomplicated (principal); T50.901A Poisoning by unspecified drugs, medicaments and biological substances, accidental (unintentional), initial encounter
CPT/HCPCS: 80053; 80305; 80320; 80329; 81001; 81003; 81025; 84443; 85025; 99283; G0480

== ENCOUNTER → 2025-09-16 11:10 | Outpatient (CLI) | payer OTHER, SELFPAY ==
--- NOTE | 2025-09-16 11:11 | DI.RAD.S_ITS ---
PROCEDURE: XR CHEST 2V INDICATIONS: r/o CAP TECHNIQUE: 2 views of the chest were acquired. COMPARISON: [facility], , XR CHEST 1V, 07/18/2025, 21:43. FINDINGS: Surgical changes and devices: None. Lungs and pleura: Lungs are clear. No pleural effusions or pneumothorax. Mediastinum: Mediastinal contours are normal. Heart size is normal. Bones and chest wall: No suspicious bony abnormalities. Soft tissues appear unremarkable. IMPRESSION: No acute cardiopulmonary abnormality is seen. Dictated by: Omar Abel M.D. on 09/16/2025 at 11:28 Approved by: Omar Abel M.D. on 09/16/2025 at 11:31
== END ==
PROVIDERS: PCP Student in an Organized Health Care Education/Training Program; Referring Provider Chiropractor; Visit Provider Chiropractor
DX: R05.1 Acute cough (principal)
CPT/HCPCS: 71046

== ENCOUNTER → 2025-10-02 16:44 | Outpatient (CLI) | payer OTHER, SELFPAY ==
[2025-10-02 17:03] LABS: Add Manual Diff / Slide Review NO; Hematocrit 43.7 % (36-46); Hemoglobin 15.1 g/dL (12.0-16.0); Lymphocytes Absolute Auto 2100 /uL (1100-4500); Mean Corpuscular HGB Conc 34.5 % (30-36); Mean Corpuscular Hemoglobin 31.2 PG (26-34); Mean Corpuscular Volume 90.3 fL (80-100); Platelet Count 275 X10^3/uL (150-400)
[2025-10-02 17:36] LABS: Alanine Aminotransferase 18 IU/L (<35); Albumin 4.2 g/dL (3.5-5.0); Albumin Globulin Ratio 1.4 (1.0-2.8); Alkaline Phosphatase 67 U/L (38-126); Blood Urea Nitrogen 6 mg/dL (7-17); Calcium 9.0 mg/dL (8.4-10.2); Carbon Dioxide 20 mmol/L (22-32); Chloride 105 mmol/L (98-107); Estimated Glomerular Filt Rate > 60 mL/min (>60); Globulin 3.0 g/dL (1.7-4.1); Glucose 79 mg/dL (70-99); HEMOLYSIS < 15 (0-50); Potassium 3.9 mmol/L (3.4-5.1); Sodium 138 mmol/L (137-145); Total Protein 7.2 g/dL (6.3-8.2)
== END ==
PROVIDERS: PCP Student in an Organized Health Care Education/Training Program; Referring Provider Registered Nurse; Visit Provider Registered Nurse
DX: M62.838 Other muscle spasm (principal)
CPT/HCPCS: 36415; 80053; 85025